=== PATIENT | female | born 1975 | race Caucasian/White ===

== ENCOUNTER 2024-05-08 09:20 | Outpatient (OUT) | payer OTHER, SELFPAY ==
[2024-05-08 10:15] LABS: Basophils Absolute Auto 0.1 10^3/uL (0.0-0.1); Basophils Percent Auto 0.6 % (0.2-2.0); Eosinophils Absolute Auto 0.3 10^3/uL (0.0-0.7); Eosinophils Percent Auto 2.6 % (0.9-7.0); Hematocrit 40.9 % (36.0-48.0); Hemoglobin 13.5 g/dL (12.0-16.0); Immature Granulocytes Abs Auto 0.04 10^3/uL (0.00-0.03); Immature Granulocytes Pct Auto 0.4 % (0.0-0.5); Lymphocytes Absolute Auto 2.2 10^3/uL (1.2-3.8); Lymphocytes Percent Auto 22.3 % (20.5-60.0); Mean Corpuscular Hemoglobin 28.5 pg (26.7-34.0); Mean Corpuscular Volume 86.3 fL (81.0-99.0); Mean Platelet Volume 10.9 fL (9.5-13.5); Monocytes Absolute Auto 0.5 10^3/uL (0.3-0.8); Monocytes Percent Auto 5.1 % (1.7-12.0); Neutrophils Absolute Auto 6.7 10^3/uL (1.4-6.5); Platelet Count 242 10^3/uL (150-450); Red Blood Count 4.74 10^6/uL (4.20-5.40); Red Cell Distribution Width 13.7 % (11.0-15.0); White Blood Count 9.7 10^3/uL (4.0-11.0)
[2024-05-08 11:24] LABS: Estimated Average Glucose 140 mg/dL; Glycohemoglobin A1C 6.5 % (4.5-6.2)
[2024-05-08 11:33] LABS: Alanine Aminotransferase 24 U/L (14-59); Albumin Globulin Ratio 0.9; Albumin Level 3.3 g/dL (3.4-5.0); Alkaline Phosphatase 69 U/L (46-116); Anion Gap 9.8; Aspartate Amino Transferase 13 U/L (15-37); BUN Creatinine Ratio 14.3; Bilirubin Total 0.4 mg/dL (0.2-1.0); Calcium 8.8 mg/dL (8.5-10.1); Carbon Dioxide 28.3 mmol/L (21.0-32.0); Chloride 104 mmol/L (98-107); Chol HDL Ratio 3.9; Cholesterol 172 mg/dL (<=200); Estimated GFR (African America >60 (>=60); Estimated GFR (Non-African Ame >60 (>=60); Free T3 2.22 pg/mL (2.18-3.98); Globulin 3.5 g/dL; Glucose 124 mg/dL (74-106); HDL Cholesterol 44 mg/dL (40-60); Potassium 3.1 mmol/L (3.5-5.1); Sodium 139 mmol/L (136-145); Thyroid Stimulating Hormone 1.252 uIU/mL (0.358-3.740); Total Protein 6.8 g/dL (6.4-8.2); Triglycerides 125 mg/dL (<=150)
[2024-05-09 08:13] LABS: Insulin 17.5 uIU/mL (2.6-24.9)
== END 2024-05-08 09:21 | disposition home or self-care (01) ==
LOC: LAB 09:24
PROVIDERS: PCP Nurse Practitioner Family; Visit Provider Nurse Practitioner Family
DX: Z00.00 Encounter for general adult medical examination without abnormal findings (principal)
CPT/HCPCS: 36415; 80053; 80061; 82306; 83036; 83525; 83540; 84436; 84443; 84481; 85025

== ENCOUNTER 2024-08-25 14:01 | Emergency (ER) | payer OTHER, SELFPAY ==
[2024-08-25 14:05] VITALS: BP 153/84; PULSE 68; TEMP 36.7; O2SAT 97; BMI 42.0
--- OUTSIDE RECORDS SUMMARY | 2024-08-25 14:07 | XMS_ITS | CCD ---
Author Organization [facility] CliniSyri Care Team Providers Care Professional Athlete Name Role Phone JEB ., DR GARVEY Consulting Unavailable JEB ., DR GARVEY Attending Unavailable CARRIE, LISA Primary Care Unavailable JEB ., DR GARVEY Admitting Unavailable JEB ., DR GARVEY Consulting Unavailable JEB ., DR GARVEY Attending Unavailable CARRIE, LISA Primary Care Unavailable JEB ., DR GARVEY Admitting Unavailable JEB ., DR GARVEY Consulting Unavailable JEB ., DR GARVEY Attending Unavailable CARRIE, LISA Primary Care Unavailable JEB ., DR GARVEY Admitting Unavailable AGUBOSIM, TUNDE Consulting Unavailable LONG, CLAUDIA Consulting Unavailable CARRIE, LISA Attending Unavailable CARRIE, LISA Admitting Unavailable CARRIE, LISA Primary Care Unavailable JEB ., DR GARVEY Admitting Unavailable JEB ., DR GARVEY Consulting Unavailable CARRIE, LISA Primary Care Unavailable JEB ., DR GARVEY Attending Unavailable JEB ., DR GARVEY Admitting Unavailable JEB ., DR GARVEY Consulting Unavailable CARRIE, LISA Primary Care Unavailable JEB ., DR GARVEY Attending Unavailable ZIEBER, DR LACI Manzano Consulting Unavailable CARRIE, LISA Admitting Unavailable CARRIE, LISA Primary Care Unavailable CARRIE, LISA Consulting Unavailable CARRIE, LIAS Attending Unavailable Problems Active Problems Problem Classification Problem Date Documented Da te Episodic/Chronic Diabetes mellitus with complications (1 source) Type 2 diabetes mellitus with hyperglycemia; Translations: [TYPE 2 DM W/HYPERGLYCEMIA] Onset: 05-04-2022 Chronic Diabetes mellitus without complication (1 source) Type 2 diabetes mellitus without complications; Translations: [TYPE 2 DM WITHOUT COMPLICATIONS] Onset: 04-22-2022 Chronic Essential hypertension (1 source) Essential (primary) hypertension; Translations: [ESSENTIAL PRIMARY HYPERTENSION] Onset: 05-04-2022 Chronic Menstrual disorders (6 sources) Excessive and frequent menstruation with regular cycle; Translations: [Dysmenorrhea, unspecified] Onset: 04-22-2022 Chronic Nutritional deficiencies (1 source) Vitamin D deficiency, unspecified; Translations: [VITAMIN D DEFICIENCY UNSPECIFIED] Onset: 05-04-2022 Chronic Other nutritional; endocrine; and metabolic disorders (1 source) Morbid (severe) obesity due to excess calories; Translations: [MORBID SEVERE OBES D/T EXCESS GAYATHRI] Onset: 05-04-2022 Chronic Other nutritional; endocrine; and metabolic disorders (1 source) Body mass index (BMI) 40.0-44.9, adult; Translations: [BODY MASS INDEX BMI 40.0-44.9 ADULT] Onset: 05-04-2022 Chronic Thyroid disorders (1 source) Hypothyroidism, unspecified; Translations: [HYPOTHYROIDISM UNSPECIFIED] Onset: 05-04-2022 Chronic Unclassified (1 source) CONTACT W/AND (SUSP) EXPOS COVID-19; Translations: [CONTACT W/AND (SUSP) EXPOS COVID-19] Onset: 05-03-2022 Past or Other Problems Problem Classification Problem Date Documented Date Episodic/Chronic Contraceptive and procreative management (1 source) Encounter for sterilization; Translations: [ENCOUNTER FOR STERILIZATION] Onset: 05-04-2022 Episodic Immunizations and screening for infectious disease (1 source) Encounter for screening for human papillomavirus (HPV); Translations: [ENC SCREENING HUMAN PAPILLOMAVIRUS] Onset: 02-18-2022 Episodic Other aftercare (1 source) Other [place] (current[facility] drug therapy; Translations: [OTH 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 CURRENT DRUG THERAPY] Onset: 04-22-2022 Episodic Other female genital disorders (1 source) Other specified noninflammatory disorders of vagina; Translations: [OTH SPEC NONINFLAMMATORY D/O VAGINA] Onset: 05-04-2022 Episodic Other screening for suspected conditions (not mental disorders or infectious disease) (4 sources) Encounter for screening for malignant neoplasm of cervix; Translations: [ENC SCREENING MALIG NEOPLASM CERV] Onset: 02-16-2022 Episodic Results Test Name Value Interpretation Reference Range Facility INSULINon 02-03-2023 Insulin 21.2 uIU/mL Normal 2.6-24.9 [facility] Comment on above: Performed By: #### I NSULIN ####[facility] [address] [place], [place] [address]EgDr. Elise Anderson CBC AUTO DIFFon 02-02-2023 BASO # 0.1 103/ul Normal 0.0-0.1 [facility] [place] Comment on above: Performed By: #### C BC #### [facility] [address] [address] [address] Elise Anderson Basophils/100 WBC (Bld) 0.6 % Normal 0.2-2.0 [facility] [place] Comment on above: Performed By: #### C BC #### [facility] [address] [address] [address] Elise Anderson EO # 0.3 103/ul Normal 0.0-0.7 [facility] [place] Comment on above: Performed By: #### C BC #### [facility] [address] [address] [address] Elise Anderson Eosinophils/100 WBC (Bld) 2.4 % Normal 0.9-7.0 [facility] Comment on above: Performed By: #### C BC #### [facility] [address] [address] [address] Elise Anderson Erythrocyte distribution width (RBC) [Ratio] 13.6 % Normal 11.0-15.0 [facility] Comment on above: Performed By: #### C BC #### [facility] [address] [address] [address] Elise Anderson Hematocrit (Bld) [Volume fraction] 39.6 % Normal 36.0-48.0 [facility] Comment on above: Performed By: #### C BC #### [facility] [address] [address] [address] Elise Anderson Hemoglobin (Bld) [Mass/Vol] 13.3 g/dL Normal 12.0-16.0 [facility] Comment on above: Performed By: #### C BC #### [facility] [address] [address] [address] Elise Anderson IG # 0.05 10e3/ul Critically high 0.00-0.03 [facility] Comment on above: Performed By: #### C BC #### [facility] [address] [place] [address] Dr. Elise Anderson IG % 0.5 % Normal 0.0-0.5 [facility] Comment on above: Performed By: #### C BC #### [facility] [address] [place] [address] Dr. Elise Anderson LYMPH # 2.1 103/ul Normal 1.2-3.8 [facility] Comment on above: Performed By: #### C BC #### [facility] [address] [place] [address] Dr. Elise Anderson Lymphocytes/100 WBC (Bld) 20.4 % Critically low 20.5-60.0 [facility] Comment on above: Performed By: #### C BC #### [facility] [address] [place] [address] Dr. Elise Anderson MANUAL DIFF REQ NO Normal [facility] Comment on above: Performed By: #### C BC #### [facility] [address] [place] [address] Dr. Elise Anderson MCH (RBC) [Entitic mass] 28.6 pg Normal 26.7-34.0 [facility] Comment on above: Performed By: #### C BC #### [facility] [address] [place] [address] Dr. Elise Anderson MCHC (RBC) [Mass/Vol] 33.6 g/dL Normal 29.9-35.2 [facility] Comment on above: Performed By: #### C BC #### [facility] [address] [place] [address] Dr. Elise Anderson MCV (RBC) [Entitic vol] 85.2 fL Normal 81.0-99.0 [facility] Comment on above: Performed By: #### C BC #### [facility] [address] [place] [address] Dr. Elise Anderson MONO # 0.6 103/ul Normal 0.3-0.8 [facility] Comment on above: Performed By: #### C BC #### [facility] [address] [address] [address] Elise Anderson Monocytes/100 WBC (Bld) 5.5 % Normal 1.7-12.0 [facility] Comment on above: Performed By: #### C BC #### [facility] [address] [place] [address] Dr. Elise Anderson NEUT # 7.3 103/ul Critically high 1.4-6.5 [facility] Comment on above: Performed By: #### C BC #### [facility] [address] [place] [address] Dr. Elise Anderson Neutrophils/100 WBC (Bld) 70.6 % Normal 43.0-75.0 [facility] Comment on above: Performed By: #### C BC #### [facility] [address] [place] [address] Dr. Elise Anderson Platelet mean volume (Bld) [Entitic vol] 10.3 fL Normal 9.5-13.5 [facility] Comment on above: Performed By: #### C BC #### [facility] [address] [place] [address] Dr. Elise Anderson PLT 274 103/ul Normal 150-450 [facility] Comment on above: Performed By: #### C BC #### [facility] [address] [place] [address] Dr. Elise Anderson RBC 4.65 106/ul Normal 4.20-5.40 [facility] Comment on above: Performed By: #### C BC #### [facility] [address] [place] [address] Dr. Elise Anderson WBC 10.3 103/ul Normal 4.0-11.0 [facility] Comment on above: Performed By: #### C BC #### [facility] [address] [place] [address] Dr. Elise Anderson FREE THYROXINE INDEX T7on FTI 3.23 Normal 1.30-4.50 [facility] Comment on above: Performed By: #### L IPID, T7, CMP, TSH ####[facility] [address] [id number] Anderson T3U 32.0 % Normal 30.0-39.0 [facility] Comment on above: Performed By: #### L IPID, T7, CMP, TSH ####[facility] [address] [place], [place] [address]BqClotilde Anderson T4 [Mass/Vol] 10.10 ug/dL Normal 4.80-13.90 [facility] Comment on above: Performed By: #### L IPID, T7, CMP, TSH ####[facility] [address] [place], [place] [address]ElClotilde Anderson GLYCOHEMOGLOBIN A1Con 2022 ADA RECOMMENDATION SEE BELOW Normal [facility] Comment on above: Result Comment: ADA RECOMMENDED LIMIT 4.0 - 6.0 ADA THERAPEUTIC TARGET < 7.0 ACTION SUGGESTED > 7.0 Performed By: #### A 1C #### [facility] [address] [address] [address] Elise Anderson Glucose [Mass/Vol] 197 mg/dL Normal [facility] Comment on above: Performed By: #### A 1C #### [facility] [address] [address] [address] Elise Anderson HbA1c (Bld) [Mass fraction] 8.5 % Critically high 4.5-6.2 [facility] [place] Comment on above: Performed By: #### A 1C #### [facility] [address] [address] [address] Elise Anderson IRONon 02-02-2023 Iron [Mass/Vol] 70.0 ug/dL Normal 50.0-170.0 [facility] Comment on above: Performed By: #### I IAN VITAD #### [facility] [address] [address] [address] Elise Anderson LIPID PROFILEon 02-02-2023 CHOL-HDL RATIO NORM SEE BELOW Normal [facility] Comment on above: Result Comment: 3.3 - 4.4 LOW RISK 4.4 - 7.1 AVERAGE RISK 7.1 - 11.0 MODERATE RISK >11.0 HIGH RISK Performed By: #### L IPID, T7, CMP, TSH ####[facility] [address] [id number]. Elise Anderson Cholesterol [Mass/Vol] 174 mg/dL Normal <=200 [facility] Comment on above: Performed By: #### L IPID, T7, CMP, TSH ####[facility] [address] [phone]. Elise Anderson Cholesterol in HDL [Mass/Vol] 35 mg/dL Critically low 40-60 [facility] Comment on above: Performed By: #### L IPID, T7, CMP, TSH ####[facility] [address] [phone]. Elise Anderson Cholesterol in LDL [Mass/Vol] 118.0 mg/dL Normal [facility] Comment on above: Performed By: #### L IPID, T7, CMP, TSH ####[facility] [address] [address]Dr. Elise Andesron Cholesterol.total/Cho lesterol in HDL [Mass ratio] 5.0 {ratio} Normal [facility] Comment on above: Performed By: #### L IPID, T7, CMP, TSH ####[facility] [address] [place] [phone]. Elise Anderson HDL NORMAL > or = 60 mg/dl - LO W CARDIOVASCULAR RISK <40 mg/dl - HIGH CARDIOVASCULAR RISK Normal [facility] Comment on above: Performed By: #### L IPID, T7, CMP, TSH ####[facility] [address] [phone]. Elise Anderson LDL CALC NORMAL SEE BELOW Normal [facility] Comment on above: Result Comment: <100 mg/dl OPTIMAL 100 - 129 mg/dl NEAR OR ABOVE OPTIMAL 130 - 159 mg/dl BORDERLINE HIGH 160 - 189 mg/dl HIGH >190 mg/dl VERY HIGH Performed By: #### L IPID, T7, CMP, TSH ####[facility] [address] [address]Dr. Elise Anderson Triglyceride [Mass/Vol] 105 mg/dL Normal <=150 [facility] Comment on above: Performed By: #### L IPID, T7, CMP, TSH ####[facility] [address] [address]Dr. Elise Anderson VLDL CALC 21.0 mg/dL Normal [facility] Comment on above: Performed By: #### L IPID, T7, CMP, TSH ####[facility] [address] [address]Dr. Elise Anderson PROF 14(COMP METB)on 023 Albumin [Mass/Vol] 3.5 g/dL Normal 3.4-5.0 [facility] Comment on above: Performed By: #### L IPID, T7, CMP, TSH ####[facility] [address] [address]Dr. Elise Anderson Albumin/Globulin [Mass ratio] 1.0 {ratio} Normal [facility] Comment on above: Performed By: #### L IPID, T7, CMP, TSH ####[facility] [address] [address]Dr. Elise Anderson ALP [Catalytic activity/Vol] 77 U/L Normal 46-116 [facility] Comment on above: Performed By: #### L IPID, T7, CMP, TSH ####[facility] [address] [address]Dr. Elise Anderson ALT [Catalytic activity/Vol] 20 U/L Normal 14-59 [facility] Comment on above: Performed By: #### L IPID, T7, CMP, TSH ####[facility] [address] [address]Dr. Elise Anderson Anion gap [Moles/Vol] 12.9 mmol/L Normal [facility] Comment on above: Performed By: #### L IPID, T7, CMP, TSH ####[facility] [address] [address]Dr. Elise Anderson AST [Catalytic activity/Vol] 12 U/L Critically low 15-37 [facility] Comment on above: Performed By: #### L IPID, T7, CMP, TSH ####[facility] [address] [address]Dr. Elise Anderson Bilirubin [Mass/Vol] 0.4 mg/dL Normal 0.2-1.0 [facility] Comment on above: Performed By: #### L IPID, T7, CMP, TSH ####[facility] [address] [address]Dr. Elise Anderson Calcium [Mass/Vol] 8.9 mg/dL Normal 8.5-10.1 [facility] Comment on above: Performed By: #### L IPID, T7, CMP, TSH ####[facility] [address] [place], [place] [address]Dr. Elise Anderson Chloride [Moles/Vol] 105 mmol/L Normal 98-107 [facility] Comment on above: Performed By: #### L IPID, T7, CMP, TSH ####[facility] [address] [place], [place] [address]Dr. Elise Anderson CO2 [Moles/Vol] 27.7 mmol/L Normal 21.0-32.0 [facility] Comment on above: Performed By: #### L IPID, T7, CMP, TSH ####[facility] [address] [place], [place] [address]Dr. Elise Anderson Creatinine [Mass/Vol] 0.74 mg/dL Normal 0.55-1.02 [facility] Comment on above: Performed By: #### L IPID, T7, CMP, TSH ####[facility] [address] [place], [place] [address]Dr. Elise Anderson EGFR-AF UGANDAN >60 Normal >=60 [facility] Comment on above: Performed By: #### L IPID, T7, CMP, TSH ####[facility] [address] [place], [place] [address]Dr. Elise Anderson EGFR-NON AF UGANDAN >60 Normal >=60 [facility] Comment on above: Performed By: #### L IPID, T7, CMP, TSH ####[facility] [address] [address]Dr. Elise Anderson Globulin (S) [Mass/Vol] 3.5 g/dL Normal [facility] Comment on above: Performed By: #### L IPID, T7, CMP, TSH ####[facility] [address] [address]Dr. Elise Anderson Glucose [Mass/Vol] 196 mg/dL Critically high 74-106 [facility] Comment on above: Performed By: #### L IPID, T7, CMP, TSH ####[facility] [address] [address]Dr. Elise Anderson Potassium [Moles/Vol] 3.6 mmol/L Normal 3.5-5.1 [facility] Comment on above: Performed By: #### L IPID, T7, CMP, TSH ####[facility] [address] [address]Dr. Elise Anderson Protein [Mass/Vol] 7.0 g/dL Normal 6.4-8.2 [facility] Comment on above: Performed By: #### L IPID, T7, CMP, TSH ####[facility] [address] [place], [place] [address]Dr. Elise Anderson Sodium [Moles/Vol] 142 mmol/L Normal 136-145 [facility] Comment on above: Performed By: #### L IPID, T7, CMP, TSH ####[facility] [address] [address]Dr. Elise Anderson Urea nitrogen [Mass/Vol] 12.0 mg/dL Normal 7.0-18.0 [facility] Comment on above: Performed By: #### L IPID, T7, CMP, TSH ####[facility] [address] [address]Dr. Elise Anderson Urea nitrogen/Creatinine [Mass ratio] 16.2 mg/mg Normal [facility] Comment on above: Performed By: #### L IPID, T7, CMP, TSH ####[facility] [address] [address]Dr. Elise Anderson TSHon 02-02-2023 TSH 1.113 uIU/mL Normal 0.358-3.740 [facility] Comment on above: Performed By: #### L IPID, T7, CMP, TSH ####[facility] [address] [phone] Anderson VITAMIN D 25 OHon 02-02-2023 VIT D 25-OH 49.1 ng/mL Normal [facility] Comment on above: Performed By: #### I IAN VITAD #### [facility] [address] [address] [address] Elise Anderson VIT D RANGES SEE BELOW Normal [facility] Comment on above: Result Comment: <20 ng/mL Vit D deficient 20 - <30 ng/mL Vit D insufficient 30 - 100 ng/mL Vit D sufficient >100 ng/mL Potential Toxicity Performed By: #### I IAN VITAD #### [facility] [address] [place] [address] Dr. Elise Anderson CBC AUTO DIFFon 04-29-2022 BASO # 0.1 103/ul Normal 0.0-0.1 [facility] Comment on above: Performed By: #### C BC ####[facility] [address] [address]DrClotilde Anderson Basophils/100 WBC (Bld) 0.5 % Normal 0.2-2.0 [facility] Comment on above: Performed By: #### C BC ####[facility] [address] [place] [address]DrClotilde Anderson EO # 0.2 103/ul Normal 0.0-0.7 [facility] Comment on above: Performed By: #### C BC ####[facility] [address] [place] [phone] Anderson Eosinophils/100 WBC (Bld) 2.0 % Normal 0.9-7.0 [facility] Comment on above: Performed By: #### C BC ####[facility] [address] [place] [address]DrClotilde Anderson Erythrocyte distribution width (RBC) [Ratio] 12.9 % Normal 11.0-15.0 [facility] Comment on above: Performed By: #### C BC ####[facility] [address] [address]Dr. Elise Anderson Hematocrit (Bld) [Volume fraction] 41.3 % Normal 36.0-48.0 [facility] Comment on above: Performed By: #### C BC ####[facility] [address] [place] [address]Dr. Elise Anderson Hemoglobin (Bld) [Mass/Vol] 13.7 g/dL Normal 12.0-16.0 [facility] Comment on above: Performed By: #### C BC ####[facility] [address] [place], [place] [address]Dr. Elise Anderson IG # 0.03 10e3/ul Normal 0.00-0.03 [facility] Comment on above: Performed By: #### C BC ####[facility] [address] [place], [place] [address]Dr. Erinwalker Anderson IG % 0.3 % Normal 0.0-0.5 [facility] Comment on above: Performed By: #### C BC ####[facility] [address] [place], [place] [address]Dr. Elise Justin LYMPH # 2.0 103/ul Normal 1.2-3.8 [facility] Comment on above: Performed By: #### C BC ####[facility] [address] [place], [place] [address]Dr. Erinwalker Anderson Lymphocytes/100 WBC (Bld) 20.1 % Critically low 20.5-60.0 [facility] Comment on above: Performed By: #### C BC ####[facility] [address] [place], [place] [address]Dr. Erinwalker Anderson MANUAL DIFF REQ NO Normal [facility] Comment on above: Performed By: #### C BC ####[facility] [address] [place] [address]DrClotilde Erinwalker Anderson MCH (RBC) [Entitic mass] 28.1 pg Normal 26.7-34.0 [facility] Comment on above: Performed By: #### C BC ####[facility] [address] [place] [phone]. Elise Anderson MCHC (RBC) [Mass/Vol] 33.2 g/dL Normal 29.9-35.2 [facility] Comment on above: Performed By: #### C BC ####[facility] [address] [place] [phone]. Elise Anderson MCV (RBC) [Entitic vol] 84.8 fL Normal 81.0-99.0 [facility] Comment on above: Performed By: #### C BC ####[facility] [address] [place], [place] [address]Dr. Elise Anderson MONO # 0.5 103/ul Normal 0.3-0.8 [facility] Comment on above: Performed By: #### C BC ####[facility] [address] [place], [place] [address]Dr. Elise Anderson Monocytes/100 WBC (Bld) 4.8 % Normal 1.7-12.0 [facility] Comment on above: Performed By: #### C BC ####[facility] [address] [place], [place] [address]Dr. Elise Anderson NEUT # 7.1 103/ul Critically high 1.4-6.5 [facility] Comment on above: Performed By: #### C BC ####[facility] [address] [place], [place] [address]Dr. Elise Anderson Neutrophils/100 WBC (Bld) 72.3 % Normal 43.0-75.0 [facility] Comment on above: Performed By: #### C BC ####[facility] [address] [place], [place] [address]Dr. Elise Anderson Platelet mean volume (Bld) [Entitic vol] 10.3 fL Normal 9.5-13.5 [facility] Comment on above: Performed By: #### C BC ####[facility] [address] [place], [place] [address]Dr. Elise Anderson PLT 304 103/ul Normal 150-450 [facility] Comment on above: Performed By: #### C BC ####[facility] [address] [place], [place] [address]Ts. Elise Anderson RBC 4.87 106/ul Normal 4.20-5.40 [facility] Comment on above: Performed By: #### C BC ####[facility] [address] [place], [place] [address]KxClotilde Anderson WBC 9.8 103/ul Normal 4.0-11.0 [facility] Comment on above: Performed By: #### C BC ####[facility] [address] [place], [place] [address]ApClotilde Anderson POINT OF CARE GLUCOSEon Glucose [Mass/Vol] 172 mg/dL Critically high 74-106 [facility] Comment on above: Performed By: #### P OCGLUC #### [facility] [address] [address] [address] Elise Anderson PREG QUANT HCGon 04-29-2022 HCG QUANT <1 Normal [facility] Comment on above: Performed By: #### P REGQNT #### [facility] [address] [address] [address] Elise Anderson HCG RANGE SEE BELOW Normal [facility] Comment on above: Result Comment: 5-50 0-1 WEEK 40-300 1-2 WEEKS 100-1,000 2-3 WEEKS 500-6,000 3-4 WEEKS 5,000-200,000 1-2 MONTHS 10,000-100,000 2-3 MONTHS 3,000-50,000 2ND TRIMESTER 1,000-50,000 3RD TRIMESTER Performed By: #### P REGQNT #### [facility] [address] [place] [address] Dr. Elise Anderson Covid-19 PCR ([facility])on 03-29 SARS-CoV-2 (COVID-19) RNA CHICA+probe Ql (Unsp spec) Not detected Normal NOT DETECTED [facility] Comment on above: Result Comment: This test is not yet approved or cleared by the [place] FDA. When there are no FDA-approved or cleared tests available, and other criteria are met, FDA can make tests available under an emergency access mechanism called an Emergency Use Authorization (EUA). The EUA for this test is supported by the [place] of Health and Human Service's (HHS's) declaration that circumstances exist to justify the emergency use of in vitro diagnostics for the detection and/or diagnosis of the virus that causes COVID-19. This EUA will remain in effect (meaning this test can be used) for the duration of the COVID-19 declaration justifying emergency of IVDs, unless it is terminated or revoked by FDA (after which the test may no longer be used). When diagnostic testing is negative, the possibility of a false negative should be considered in the context of a patient's recent exposures and the presence of clinical signs and symptoms consistent with SARS-CoV-2. Performed By: #### [facility] #### [facility] [address] [place] [address] Dr. Elise Anderson PROF CHEM 8 (BAS METB)on Anion gap [Moles/Vol] 11.5 mmol/L Normal [facility] Comment on above: Performed By: #### B MP #### [facility] [address] [place] [address] Dr. Elise Anderson Calcium [Mass/Vol] 9.1 mg/dL Normal 8.5-10.1 [facility] Comment on above: Performed By: #### B MP #### [facility] [address] [place] [address] Dr. Elise Anderson Chloride [Moles/Vol] 99 mmol/L Normal 98-107 [facility] Comment on above: Performed By: #### B MP #### [facility] [address] [place] [address] Dr. Elise Anderson CO2 [Moles/Vol] 29.1 mmol/L Normal 21.0-32.0 [facility] Comment on above: Performed By: #### B MP #### [facility] [address] [place] [address] Dr. Elise Anderson Creatinine [Mass/Vol] 0.93 mg/dL Normal 0.55-1.02 [facility] Comment on above: Performed By: #### B MP #### [facility] [address] [address] [address] Elise Anderson EGFR-AF UGANDAN >60 Normal >=60 [facility] Comment on above: Performed By: #### B MP #### [facility] [address] [address] [address] Elise Anderson EGFR-NON AF UGANDAN >60 Normal >=60 [facility] Comment on above: Performed By: #### B MP #### [facility] [address] [address] [address] Elise Anderson Glucose [Mass/Vol] 385 mg/dL Critically high 74-106 [facility] Comment on above: Performed By: #### B MP #### [facility] [address] [address] [address] Elise Anderson Potassium [Moles/Vol] 3.6 mmol/L Normal 3.5-5.1 [facility] Comment on above: Performed By: #### B MP #### [facility] [address] [address] [address] Elise Anderson Sodium [Moles/Vol] 136 mmol/L Normal 136-145 [facility] Comment on above: Performed By: #### B MP #### [facility] [address] [address] [address] Elise Anderson Urea nitrogen [Mass/Vol] 15.0 mg/dL Normal 7.0-18.0 [facility] Comment on above: Performed By: #### B MP #### [facility] [address] [address] [address] Elise Anderson Urea nitrogen/Creatinine [Mass ratio] 16.1 mg/mg Normal [facility] Comment on above: Performed By: #### B MP #### [facility] [address] [address] [address] Elise Anderson PAP ACOG PANEL 2: 30 to 65on 02-23-2022 . . Normal [facility] Comment on above: Result Comment: Perf ormed at: WB Performed By: #### [id number] ####[facility] [address] [place], [place] [address]Dr. Elise Anderson Age Gdln ACOG Testing 30-65 Normal [facility] Comment on above: Performed By: #### [id number] ####[facility] [address] [place], [place] [address]Dr. Elise Anderson DIAGNOSIS: Comment Normal [facility] Comment on above: Result Comment: NEGA TIVE FOR INTRAEPITHELIAL LESION OR MALIGNANCY. Performed at: WB Performed By: #### [id number] ####[facility] [address] [place], [place] [address]Dr. Elise Anderson HPV Aptima Negative Normal Negative [facility] Comment on above: Result Comment: This nucleic acid amplification test detects fourteen high-risk HPV types (16,18,31,33,35,39,45,51,52,56,58,59,66,68) without differentiation. Performed at: =G Performed By: #### [id number] ####[place] [address]DrClotilde Anderson Methodology: Comment Normal [facility] Comment on above: Result Comment: This liquid based ThinPrep(R) pap test was screened with the use of an image guided system. Performed at: WB Performed By: #### [id number] ####[place] [address]Dr. Elise Anderson Note: Comment Normal [facility] Comment on above: Result Comment: The Pap smear is a screening test designed to aid in the detection of premalignant and malignant conditions of the uterine cervix. It is not a diagnostic procedure and should not be used as the sole means of detecting cervical cancer. Both false-positive and false-negative reports do occur. . Performed at: WB Performed By: #### [id number] ####[facility] [address] [place], [place] [address]DrClotilde Anderson Performed by: Comment Normal [facility] Comment on above: Result Comment: Anahi Romo, Hazardous Materials Handler (ASCP) Performed at: WB Performed By: #### [id number] ####[facility] [address] [place], [place] [address]Dr. Elise Anderson Specimen adequacy: Comment Normal [facility] Comment on above: Result Comment: Sati sfactory for evaluation. Endocervical and/or squamous metaplastic cells (endocervical component) are present. Areas of partially obscuring blood are present. Performed at: WB Performed By: #### [id number] ####[facility] [address] [place], [place] [address]Mf. Elise Anderson US PELVIS AND TRANSVAGon US PELVIS AND TRANSVAG EXAMINATION: US PELVIS AND TRANSVAG HISTORY: Excessive and frequent menstruation COMPARISON: Ultrasound pelvis 10/18/2019 TECHNIQUE: Transabdominal and transvaginal sonographic examination. FINDINGS: UTERUS: Slightly heterogeneous echotexture. Normal size and contour. Uterus size: 9.9 x 5.6 x 4.7 cm ENDOMETRIUM: Normal homogeneous appearance. Endometrial thickness: 10 mm RIGHT OVARY: Normal size and appearance. Duplex Doppler demonstrates normal waveform and flow; resistive index 0.5. Ovary size: 2.2 x 2.3 x 2.2 cm LEFT OVARY: Contains a 1.9 cm benign-appearing cyst. Duplex Doppler demonstrates normal waveform and flow; resistive index 0.4. Ovary size: 3.8 x 2.7 x 2.5 cm CUL-DE-SAC: Unremarkable. No significant free fluid. BLADDER: Unremarkable. OTHER: None. IMPRESSION: 1. No specific findings to account for patient's symptoms. Electronically authenticated by: LACI FRITZ Date: 2022-02-23 15:28 Normal [facility] Encounters Encounter Date Encounter Type Care Provider Facility Start: 02-07-2023 Encounter for genera l adult medical examination without abnormal findings LISA BUTLER [facility] Start: 02-02-2023 End: 02-03-2023 ambulatory LISA BUTLER Facility:[facility] Start: 02-02-2023 End: 02-03-2023 Encounter for general adult medical examination without abnormal findings LISA BUTLER Facility:[facility] Start: 12-21-2022 ambulatory LISA BUTLER Facility: [facility] Start: 05-03-2022 Encounter for prepro cedural laboratory examination DR MARE LEAVITT . [facility] Start: 04-29-2022 End: 04-29-[address] MARE LEAVITT . Facility:[facility] Start: 04-26-2022 End: 04-27-[address] MARE LEAVITT . Facility:[facility] Start: 04-26-2022 End: 04-27-2022 Encounter for preprocedural laboratory examination DR MARE LEAVITT . Facility:[facility] Start: 04-22-2022 Encounter for prepro cedural cardiovascular examination DR MARE LEAVITT . [facility] Start: 04-22-2022 Encounter for prepro cedural laboratory examination DR MARE LEAVITT . [facility] Start: 04-20-2022 End: 04-21-[address] MARE LEAVITT . Facility:[facility] Start: 04-20-2022 End: 04-21-2022 Encounter for preprocedural cardiovascular examination DR MARE LEAVITT . Facility:[facility] Start: 02-23-2022 End: 02-24-[address] MARE LEAVITT . Facility:[facility] Start: 02-16-2022 End: 02-16-[address] MARE LEAVITT . Facility:[facility] Payers Date Payer Category Payer Unknown [id number] 2.16.84 [id number] 1975 Unknown [id number] 2.16.84 [id number] 1975 Unknown [id number] 2.16.84 [id number] 1977 Unknown [id number] 2.16.84 [id number] 1977 Unknown [id number] 2.16.84 [id number] 1977 Unknown [id number] 2.16.84 [id number] 1977 Unknown [id number] 2.16.84 [id number] 1957 Self-pay [id number] 1957 Unknown [id number] Clinical Note 04-29-2022 Note Date & Type Note Facility 04-29-2022 Note OPERATIVE NOTE YANELY MAGALLANES OPERATION DATE: 05/06/2022 PROCEDURE NAME: BILATERAL LAPAROSCOPIC SALPINGECTOMY PROCEDURE: The patient was taken back to the Operating Room where she was given general anesthesia without difficulty. She was then prepped and draped in the normal sterile fashion after being placed in a dorsal lithotomy position. A wet sponge stick was placed into the patient's vagina. Attention was then turned to the patient's abdomen, where a scalpel was used to make a small infraumbilical incision. The S retractors were then used to dissect the underlying layers until the fascia could be seen. The fascia was then grasped with Rakan clamps and tented up. A knife was then used to make a small incision to the fascia. The muscle was identified, at that time two sutures of #0 Vicryl on a GI needle was then used and placed through the fascia. The peritoneum was then identified and entered bluntly. The 10-4 Arabella was then placed into the patient's abdomen. This was confirmed with direct visualization of the bowel, using the laparoscope. The patient's abdomen was then insufflated using approximately 4 liters of CO2 gas. Survey of the patient's abdomen demonstrated ovaries were normal in appearance as well as both tubes and uterus. A second and third rt and lt lateral ports which were 7-8 and 5mm in size, was then placed after the skin incision was made under direct visualization The patient's tube on the patient's right side was identified and tented up using a grasper, the ligasure apparatus was then used to come across the mesosalpingx from the fimbriated end to the insertion site at the uterus, the tube was then amputated and removed in its entirety. This was done on the contralateral side. The tubes were the removed from the patients abdomen. Excellent hemostasis was noted. The lateral ports were then moved under direct visualization with excellent hemostasis. All instruments were removed from the patient's abdomen. The fascia was closed using the #0 Vicryl on GI needle. The skin was closed using 4-0 Vicryl subcuticularly. All instruments were removed from the patient's vagina as well. The patient was taken out of the dorsal lithotomy position and placed in the supine position and taken to recovery in stable condition. Sponge, lap and needle counts were correct x2. [facility] Clinical Note 04-29-2022 Note Date & Type Note Facility 04-29-2022 Note OP Note OPERATION DATE: 04/29/2022 PROCEDURE: Bilateral laparoscopic salpingectomy with Nena endometrial ablation. PREOPERATIVE DIAGNOSIS: Menorrhagia, desires permanent sterilization. POSTOPERATIVE DIAGNOSIS: Menorrhagia, desires permanent sterilization. ANESTHESIA: General. SURGEON: Mare Leavitt D.O. PUPIL PERSONNEL WORKER: BRIJESH Zavala URINE OUTPUT: Yellow and clear. BLOOD LOSS: 5 mL. SPECIMEN: Bilateral tubes. FINDINGS: Both ostia seen. No gross evidence of polyps, fibroids or malignancy. Normal appearing endometrium. ABDOMINAL FINDINGS: Normal appearing ovaries, uterus and tubes. PROCEDURE: The patient was taken back to the Operating Room where she was given general anesthesia without difficulty. She was then prepped and draped in the normal sterile fashion after being placed in a dorsal lithotomy position. A wet sponge stick was placed into the patient's vagina. Attention was then turned to the patient's abdomen, where a scalpel was used to make a small infraumbilical incision. The S retractors were then used to dissect the underlying layers until the fascia could be seen. The fascia was then grasped with Rakan clamps and tented up. A knife was then used to make a small incision to the fascia. The muscle was identified, at that time two sutures of #0 Vicryl on a GI needle was then used and placed through the fascia. The peritoneum was then identified and entered bluntly. The 10-4 Arabella was then placed into the patient's abdomen. This was confirmed with direct visualization of the bowel, using the laparoscope. The patient's abdomen was then insufflated using approximately 4 liters of CO2 gas. Survey of the patient's abdomen demonstrated ovaries were normal in appearance as well as both tubes and uterus. A second and third rt and lt lateral ports which were 7-8 and 5 mm in size, was then placed after the skin incision was made under direct visualization The patient's tube on the patient's right side was identified and tented up using a grasper, the LigaSure apparatus was then used to come across the mesosalpinx from the fimbriated end to the insertion site at the uterus, the tube was then amputated and removed in its entirety. This was done on the contralateral side. The tubes were the removed from the patients abdomen. Excellent hemostasis was noted. The lateral ports were then moved under direct visualization with excellent hemostasis. All instruments were removed from the patient's abdomen. The fascia was closed using the #0 Vicryl on GI needle. The skin was closed using 4-0 Vicryl subcuticularly. All instruments were removed from the patient's vagina as well. The patient was taken out of the dorsal lithotomy position and placed in the supine position and taken to recovery in stable condition. Sponge, lap and needle counts were correct x2. The patient was taken back to the OR where she was prepped and draped in the normal sterile fashion after being placed in the dorsal lithotomy position, after being placed under general anesthesia without difficulty. A weighted speculum was placed into the vagina. The anterior lip was grasped with a single tooth tenaculum. The patient was then sounded to approximately 9 cm. The patient's cervix was gently dilated using Hegar dilators. The hysteroscope was passed through the cervix into the uterus where both ostia were seen. No gross evidence of polyps, fibroids or malignancy. The cervical length was noted to be 5 cm. The total cavity length is 4 cm. The Nena ablation apparatus was set to approximately 4 cm in length. This was placed through the cervix and into the uterus. After the seal was tested, at that time the total ablation of 120 seconds was performed with the Nena without difficulty. All instruments were removed from the vagina. Excellent hemostasis noted. Sponge and lap count correct times 2. Patient taken to recovery in stable condition. [facility] Clinical Note 04-29-2022 Note Date & Type Note Facility 04-29-2022 Note [facility] [place], [place] NAME: WILILE GUZMAN DATE OF : MEDICAL REC#: [id number] SKIRT CLIPPER: [id number] MONICO GAITAN DATE: 04/29/2022 07:04:00 USABILITY ENGINEER DATE: 05/19/2022 11:37 DICTATING PHYSICIAN: MARE LEAVITT DICTATION DATE: 05/19/2022 11:37 OPERATIVE NOTE OPERATION DATE: 04/29/2022 ANESTHETIC: PREOPERATIVE DIAGNOSIS: menorrhagia, desires permanent sterilization POSTOPERATIVE DIAGNOSIS : same as above ANESTHESIA: general Surgeon: jeb Young Food Adviser: BRIJESH Blood loss:10ml Specimen: bilateral tubes Finding:Normal appearing ovaries uterus and tubes, Both ostia seen, no gross evidence of polyps fibroids or malignancy PROCEDURE NAME: NENA ABLATION WITH BILATERAL LAPAROSCOPIC SALPINGECTOMY PROCEDURE: The patient was taken back to the OR where she was prepped and draped in the normal sterile fashion after being placed in the dorsal lithotomy position, after being placed under general anesthesia without difficulty. The anterior lip was grasped with a single tooth tenaculum. The patient was then gently sounds. The patient was gently sounded using Hegar dilators and the hysteroscope was passed through the cervix into the uterus where both ostia were seen. No gross evidence of polyps, fibroids or malignancy. A weighted speculum was placed in the patient's vagina, the anterior tip of the cervix was identified and grasped with a single tooth tenaculum. The patient was gently sounded to roughly 10 cm. The cervical length was noted to be 5 cm. The Nena ablation apparatus was set to approximately 5 in length. This was placed in through the cervix and into the uterus. After the seal was tested, at that time the total ablation of 120 seconds was performed with the Nena without difficulty. All instruments were removed from the vagina. A wet sponge stick was placed into the patient's vagina. Attention was then turned to the patient's abdomen, where a scalpel was used to make a small infraumbilical incision. The S retractors were then used to dissect the underlying layers until the fascia could be seen. The fascia was then grasped with Rakan clamps and tented up. A knife was then used to make a small incision to the fascia. The muscle was identified, at that time two sutures of #0 Vicryl on a GI needle was then used and placed through the fascia. The peritoneum was then identified and entered bluntly. The 10-4 Arabella was then placed into the patient's abdomen. This was confirmed with direct visualization of the bowel, using the laparoscope. The patient's abdomen was then insufflated using approximately 4 liters of CO2 gas. Survey of the patient's abdomen demonstrated ovaries were normal in appearance as well as both tubes and uterus. A second and third rt and lt lateral ports which were 7-8 and 5mm in size, was then placed after the skin incision was made under direct visualization The patient's tube on the patient's right side was identified and tented up using a grasper, the ligasure apparatus was then used to come across the mesosalpingx from the fimbriated end to the insertion site at the uterus, the tube was then amputated and removed in its entirety. This was done on the contralateral side. The tubes were the removed from the patients abdomen. Excellent hemostasis was noted. The lateral ports were then moved under direct visualization with excellent hemostasis. All instruments were removed from the patient's abdomen. The fascia was closed using the #0 Vicryl on GI needle. The skin was closed using 4-0 Vicryl subcuticularly. All instruments were removed from the patient's vagina as well. The patient was taken out of the dorsal lithotomy position and placed in the supine position and taken to recovery in stable condition. Sponge, lap and needle counts were correct x2. Electronically Authenticated and Edited by: Mare Leavitt DO on 05/19/2022 11:48 AM EDT IFC Signed and Approved by: DR MARE LEAVITT . 05/19/2022 11:48:00 [facility] Summary Purpose Family History No Family History Records Found Advance Directives No Advanced Directives Records Found Additional Source Comments INFORMATION SOURCE (unrecogn ized section and content) DATE CREATED AUTHOR 02/08/2023 [facility] FOR RECORDS PERTAINING TO PATIENTS WHO ARE OR HAVE BEEN ENROLLED IN A CHEMICAL DEPENDENCY/SUBSTANCEABUSE PROGRAM, SOME INFORMATION MAY BE OMITTED. This clinical summary was aggregated from multiple sources. Caution should be exercised in using it in the provision of clinical care. This summary normalizes information from multiple sources, and as a consequence, information in this document may materially change the coding, format and clinical context of patient data. In addition, data may be omitted in some cases. CLINICAL DECISIONS SHOULD BE BASED ON THE PRIMARY CLINICAL RECORDS. [employer] provides no warranty or guarantee of the accuracy or completeness of information in this document.
--- NOTE | 2024-08-25 14:14 | XR_ITS ---
The [address] [address] Patient Name: WILLIE GUZMAN MRN: [id number] date: 1975 Sex: F Assigned Patient Location: ER Current Patient Location: Accession/Order Number: [id number] Exam Date: 08/25/2024 14:32 Report Date: 08/25/2024 15:37 At the request of: TARIQ VARNER Procedure: XR foot RT min 3V EXAM: XR foot RT min 3V HISTORY: Pain and swelling. COMPARISON: None FINDINGS: There is no evidence of an acute fracture, subluxation or bony destruction. XR/XR foot RT min 3V IMPRESSION: No acute osseous abnormality detected. Electronically authenticated by: MARTHA SALES Date: 08/25/2024 15:37
--- NOTE | 2024-08-25 14:14 | XR_ITS ---
The [address] [address] Patient Name: WILLIE GUZMAN MRN: [id number] date: 1975 Sex: F Assigned Patient Location: ER Current Patient Location: Accession/Order Number: [id number] Exam Date: 08/25/2024 14:32 Report Date: 08/25/2024 15:38 At the request of: TARIQ VARNER Procedure: XR ankle RT min 3V HISTORY: c/o pain COMPARISON: There are no previous studies available for comparison. TECHNIQUE: 3 views of the right ankle. FINDINGS: BONE DENSITY: Normal. JOINTS: No acute abnormality. FRACTURE: No acute fracture. DISLOCATION: None. SOFT TISSUES: No radiopaque foreign body. XR/XR ankle RT min 3V IMPRESSION: No acute osseous or joint abnormality. Electronically authenticated by: EDDIE CRENSHAW Date: 08/25/2024 15:38
--- NOTE | 2024-08-25 14:30 | PC.NURSE ---
Pain to right outer foot and ankle. Denies injury to area, slight swelling to area, no redness or bruising to area.
--- NOTE | 2024-08-25 14:57 | ED.LOWEXI1 ---
HPI HPI - Extremity Injury (Lower) General Chief Complaint: Extremity Injury, Lower Stated Complaint: RT FOOT PAIN Time Seen by Provider: 08/25/24 14:25 Source: patient Mode of arrival: walk-in Limitations: no limitations History of Present Illness HPI Narrative: 49-year-old female presents for right foot pain. She has had this for a few weeks and she points to the arch of her foot. 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 The contralateral foot does not hurt. She has never had issues with this foot previously. It hurts more when she walks on it. Related Data Home Medications ?Medication ?Instructions ?Recorded ?Confirmed amlodipine 5 mg tablet 5 mg PO DAILY 08/25/24 08/25/24 empagliflozin 10 mg tablet 10 mg PO DAILY 08/25/24 08/25/24 (Jardiance) glipizide 5 mg tablet, extended 5 mg PO DAILY 08/25/24 08/25/24 release 24 hr hydrochlorothiazide 25 mg tablet 25 mg PO DAILY 08/25/24 08/25/24 levothyroxine 75 mcg tablet 75 mcg PO DAILY 08/25/24 08/25/24 Previous Rx's ?Medication ?Instructions ?Recorded etodolac 400 mg tablet 400 mg PO Q8H PRN pain #20 tabs 08/25/24 Allergies Allergy/AdvReac Type Severity Reaction Status Date / Time No Known Drug Allergies Allergy Verified 08/25/24 14:05 Opioid HPI Opioid Management Most Recent Pain and Opioid Data: No Data to Display Review of Systems ROS Narrative A ten point review of systems is negative except as noted above. PFSH PFSH Social History Little interest or pleasure in doing things: not at all Feeling down, depressed, or hopeless: not at all Exam Narrative Exam Narrative: Nurses note and vital signs reviewed and patient is not hypoxic. General: The patient appears well and in no apparent distress. Patient is resting comfortably on cart. Skin: Warm, dry, no pallor noted. There is no rash noted. Head: Normocephalic, atraumatic Eye: Normal conjunctiva, no drainage Ears, Nose, Mouth, and Throat: oral mucosa is moist. Nares patent. Cardiovascular: Regular Rate and Rhythm Respiratory: Patient is in no distress, no accessory muscle use, lungs are clear to auscultation, no wheezing, rales or rhonchi GI: Nontender Musculoskeletal: The right foot and ankle are examined. There is no bruise or rash or focal area of tenderness to palpation. She has diffuse tenderness along the arch of the foot. Skin intact. No rash. Neurological: Awake and alert Psychiatric: Cooperative Constitutional Vital Signs, click to edit/add: Last Vital Signs Temp 98.1 F 08/25/24 14:05 Pulse 68 08/25/24 14:05 Resp 20 08/25/24 14:05 BP 153/84 H 08/25/24 14:05 Pulse Ox 97 08/25/24 14:05 O2 Del Method Room Air 08/25/24 14:05 Course Vital Signs Vital signs: Vital Signs Temperature 98.1 F 08/25/24 14:05 Pulse Rate 68 08/25/24 14:05 Respiratory Rate 08/25/24 14:05 Blood Pressure 153/84 H 08/25/24 14:05 Pulse Oximetry 97 08/25/24 14:05 Oxygen Delivery Method Room Air 08/25/24 14:05 Temperature 98.1 F 08/25/24 14:05 Pulse Rate 08/25/24 14:05 Respiratory Rate 08/25/24 14:05 Blood Pressure 153/84 H 08/25/24 14:05 Pulse Oximetry 97 08/25/24 14:05 Oxygen Delivery Method Room Air 08/25/24 14:05 MDM - Extremity Injury (Lower) MDM Narrative Medical decision making narrative: X-rays of foot and ankle on my interpretation showed no acute findings. Sathya wrap applied and application checked by me and found to be appropriate, she is neurovascularly intact. She is referred to podiatry and is placed on crutches. Treatment diagnosis and follow-up were discussed with the patient. Differential Diagnosis Differential diagnosis: Likely other (Foot sprain, foot fracture) Imaging Data X-rays of foot and ankle: My impression: No acute findings Discharge Plan Discharge Chief Complaint: Extremity Injury, Lower Clinical Impression: Foot pain, right Patient Disposition: Home, Self-Care Time of Disposition Decision: 14:56 Condition: Good Mode of Transportation: Private Vehicle Prescriptions / Home Meds: New etodolac 400 mg tablet 400 mg PO Q8H PRN (Reason: pain) Qty: 20 0RF No Action amlodipine 5 mg tablet 5 mg PO DAILY Jardiance 10 mg tablet 10 mg PO DAILY glipizide 5 mg tablet extended release 24hr 5 mg PO DAILY hydrochlorothiazide 25 mg tablet 25 mg PO DAILY levothyroxine 75 mcg tablet 75 mcg PO DAILY Print Language: Yemeni Instructions: Foot Sprain (ED) Referrals: LISA BUTLER [Primary Care Provider] - 1 week Trevor Minor DPM [Physician] - 1 week
== END 2024-08-25 15:23 | disposition home or self-care (01) ==
PROVIDERS: Emergency Provider Emergency Medicine; PCP Nurse Practitioner Family
DX: M79.671 Pain in right foot (principal)
CPT/HCPCS: 73610; 73630; 99283

== ENCOUNTER 2024-09-03 13:20 | Outpatient (OUT) | payer OTHER, SELFPAY ==
--- NOTE | 2024-09-03 13:26 | MR_ITS ---
[address] [address] Patient Name: WILLIE GUZMAN MRN: [id number] date: 1975 Sex: F Assigned Patient Location: MRI Current Patient Location: MRI Accession/Order Number: [id number] Exam Date: 09/03/2024 13:38 Report Date: 09/04/2024 17:11 At the request of: LAKISHA BARROSO Procedure: MR ankle RT wo con EXAM: MR ankle RT wo con HISTORY: Plantar Fascia Rupture S96.811 COMPARISON: 08/25/2024 TECHNIQUE: MRI images obtained with multiple sequences. MRI of the right ankle without contrast. Sequences obtained by standard department protocol. FINDINGS: Mild degeneration of the ankle joint. No ankle joint effusion. Achilles tendon is intact. Plantar fascia is intact. Extensor, flexor and peroneal tendons are intact. Moderate degeneration at the second tarsometatarsal joint. Mild degeneration at the other tarsometatarsal joints. Anterior talofibular, posterior talofibular and calcaneofibular ligaments are intact. Deltoid ligament fibers are intact. No acute fractures. MR/MR ankle RT wo con IMPRESSION: 1. No acute tendinous or ligamentous abnormality. 2. Plantar fascial is intact where visualized. 3. Mild degeneration at the ankle joint. 4. No acute fractures. Electronically authenticated by: RENY MARTINEZ Date: 09/04/2024 17:11
--- OUTSIDE RECORDS SUMMARY | 2024-09-03 13:30 | XMS_ITS | CCD ---
Author Organization [facility] CliniSydc Care Team Providers Care Digital Media Director Name Role Phone JEB ., DR GARVEY [...] Care Unavailable CARRIE, LISA Consulting Unavailable CARRIE, LISA Attending Unavailable Problems Active Problems Problem Classification [...] 02-18-2022 Episodic Other aftercare (1 source) Other intermediate (current) drug therapy; Translations: [OTH FDC CURRENT DRUG THERAPY] Onset: 04-22-2022 Episodic Other [...] 02-03-2023 Insulin 21.2 uIU/mL Normal 2.6-24.9 [facility] Comment on above: Performed By: #### I NSULIN ####[facility] [address] [place], [place] [address]YsDr. Elise Anderson CBC AUTO DIFFon 02-02-2023 BASO # 0.1 103/ul Normal 0.0-0.1 [facility] Comment on above: Performed By: #### C BC #### [facility] [address] [address] [address] Elise Anderson Basophils/100 WBC (Bld) 0.6 % Normal 0.2-2.0 [facility] Comment on above: Performed By: #### C BC #### [facility] [address] [address] [address] Elise Anderson EO # 0.3 103/ul Normal 0.0-0.7 [facility] Comment on above: Performed By: #### C BC #### [facility] [address] [address] [address] Elise Anderson Eosinophils/100 WBC (Bld) 2.4 % Normal 0.9-7.0 [facility] Comment on above: Performed By: #### C BC #### [facility] [address] [address] [address] Elise Anderson Erythrocyte distribution width (RBC) [Ratio] 13.6 % Normal 11.0-15.0 [facility] Comment on above: Performed By: #### C BC #### [facility] [address] [address] [address] Elise Anderson Hematocrit (Bld) [Volume fraction] 39.6 % Normal 36.0-48.0 [facility] Comment on above: Performed By: #### C BC #### [facility] [address] [address] [address] Elise Anderson Hemoglobin (Bld) [Mass/Vol] 13.3 g/dL Normal 12.0-16.0 [facility] Comment on above: Performed By: #### C BC #### [facility] [address] [address] [address] Elise Anderson IG # 0.05 10e3/ul Critically high 0.00-0.03 [facility] Comment on above: Performed By: #### C BC #### [facility] [address] [place] [address] Dr. Elise Anderson IG % 0.5 % Normal 0.0-0.5 [facility] Comment on above: Performed By: #### C BC #### [facility] [address] [place] [address] Dr. Elise Anderson LYMPH # 2.1 103/ul Normal 1.2-3.8 [facility] Comment on above: Performed By: #### C BC #### [facility] [address] [place] [address] Dr. Elise Anderson Lymphocytes/100 WBC (Bld) 20.4 % Critically low 20.5-60.0 [facility] Comment on above: Performed By: #### C BC #### [facility] [address] [place] [address] Dr. Elise Anderson MANUAL DIFF REQ NO Normal [facility] Comment on above: Performed By: #### C BC #### [facility] [address] [place] [address] Dr. Elise Anderson MCH (RBC) [Entitic mass] 28.6 pg Normal 26.7-34.0 [facility] Comment on above: Performed By: #### C BC #### [facility] [address] [place] [address] Dr. Elise Anderson MCHC (RBC) [Mass/Vol] 33.6 g/dL Normal 29.9-35.2 [facility] Comment on above: Performed By: #### C BC #### [facility] [address] [place] [address] Dr. Elise Anderson MCV (RBC) [Entitic vol] 85.2 fL Normal 81.0-99.0 [facility] Comment on above: Performed By: #### C BC #### [facility] [address] [place] [address] Dr. Elise Anderson MONO # 0.6 103/ul Normal 0.3-0.8 [facility] Comment on above: Performed By: #### C BC #### [facility] [address] [address] [address] Elise Anderson Monocytes/100 WBC (Bld) 5.5 % Normal 1.7-12.0 [facility] Comment on above: Performed By: #### C BC #### [facility] [address] [place] [address] Dr. Elise Anderson NEUT # 7.3 103/ul Critically high 1.4-6.[address] [facility] Comment on above: Performed By: #### C BC #### [facility] [address] [place] [address] Dr. Elise Anderson Neutrophils/100 WBC (Bld) 70.6 % Normal 43.0-75.0 [facility] Comment on above: Performed By: #### C BC #### [facility] [address] [place] [address] Dr. Elise Anderson Platelet mean volume (Bld) [Entitic vol] 10.3 fL Normal 9.5-13.5 [facility] Comment on above: Performed By: #### C BC #### [facility] [address] [place] [address] Dr. Elise Anderson PLT 274 103/ul Normal 150-450 [facility] Comment on above: Performed By: #### C BC #### [facility] [address] [place] [address] Dr. Elise Anderson RBC 4.65 106/ul Normal 4.20-5.40 [facility] Comment on above: Performed By: #### C BC #### [facility] [address] [place] [address] Dr. Elise Anderson WBC 10.3 103/ul Normal 4.0-11.0 [facility] Comment on above: Performed By: #### C BC #### [facility] [address] [place] [address] Dr. Elise Anderson FREE THYROXINE INDEX T7on FTI 3.23 Normal 1.30-4.50 [facility] Comment on above: Performed By: #### L IPID, T7, CMP, TSH ####[facility] [address] [place] [id number] Anderson T3U 32.0 % Normal 30.0-39.0 [facility] Comment on above: Performed By: #### L IPID, T7, CMP, TSH ####[facility] [address] [place], [place] [address]RgClotilde Anderson T4 [Mass/Vol] 10.10 ug/dL Normal 4.80-13.90 [facility] Comment on above: Performed By: #### L IPID, T7, CMP, TSH ####[facility] [address] [place], [place] [address]KgClotilde Anderson GLYCOHEMOGLOBIN A1Con 2022 ADA RECOMMENDATION SEE BELOW Normal [facility] Comment on above: Result Comment: ADA RECOMMENDED LIMIT 4.0 - 6.0 ADA THERAPEUTIC TARGET < 7.0 ACTION SUGGESTED > 7.0 Performed By: #### A 1C #### [facility] [address] [address] [address] Elise Anderson Glucose [Mass/Vol] 197 mg/dL Normal [facility] Comment on above: Performed By: #### A 1C #### [facility] [address] [address] [address] Elise Anderson HbA1c (Bld) [Mass fraction] 8.5 % Critically high 4.5-6.2 [facility] Comment on above: Performed By: #### A 1C #### [facility] [address] [address] [address] Elise Anderson IRONon 02-02-2023 Iron [Mass/Vol] 70.0 ug/dL Normal 50.0-170.0 [facility] Comment on above: Performed By: #### I IAN VITAD #### [facility] [address] [address] [address] Elise Anderson LIPID PROFILEon 02-02-2023 CHOL-HDL RATIO NORM SEE BELOW Normal [facility] Comment on above: Result Comment: 3.3 - 4.4 LOW RISK 4.4 - 7.1 AVERAGE RISK 7.1 - 11.0 MODERATE RISK >11.0 HIGH RISK Performed By: #### L IPID, T7, CMP, TSH ####[facility] [address] [place] [id number]. Elise Anderson Cholesterol [Mass/Vol] 174 mg/dL Normal <=200 [facility] Comment on above: Performed By: #### L IPID, T7, CMP, TSH ####[facility] [address] [place] [id number]. Elise Anderson Cholesterol in HDL [Mass/Vol] 35 mg/dL Critically low 40-60 [facility] Comment on above: Performed By: #### L IPID, T7, CMP, TSH ####[facility] [address] [place] [id number]. Elise Anderson Cholesterol in LDL [Mass/Vol] 118.0 mg/dL Normal [facility] Comment on above: Performed By: #### L IPID, T7, CMP, TSH ####[facility] [address] [address]Dr. Elise Anderson Cholesterol.total/Cho lesterol in HDL [Mass ratio] 5.0 {ratio} Normal [facility] Comment on above: Performed By: #### L IPID, T7, CMP, TSH ####[facility] [address] [place] [id number]. Elise Anderson HDL NORMAL > or = 60 mg/dl - LO W CARDIOVASCULAR RISK <40 mg/dl - HIGH CARDIOVASCULAR RISK Normal [facility] Comment on above: Performed By: #### L IPID, T7, CMP, TSH ####[facility] [address] [place] [id number]. Elise Anderson LDL CALC NORMAL SEE BELOW Normal [facility] Comment on above: Result Comment: <100 mg/dl OPTIMAL 100 - 129 mg/dl NEAR OR ABOVE OPTIMAL 130 - 159 mg/dl BORDERLINE HIGH 160 - 189 mg/dl HIGH >190 mg/dl VERY HIGH Performed By: #### L IPID, T7, CMP, TSH ####[facility] [address] [place] [address]Dr. Elise Anderson Triglyceride [Mass/Vol] 105 mg/dL Normal <=150 [facility] Comment on above: Performed By: #### L IPID, T7, CMP, TSH ####[facility] [address] [place] [address]Dr. Elise Anderson VLDL CALC 21.0 mg/dL Normal [facility] Comment on above: Performed By: #### L IPID, T7, CMP, TSH ####[facility] [address] [place] [address]Dr. Elise Anderson PROF 14(COMP METB)on 023 Albumin [Mass/Vol] 3.5 g/dL Normal 3.4-5.0 [facility] Comment on above: Performed By: #### L IPID, T7, CMP, TSH ####[facility] [address] [address]Dr. Elise Anderson Albumin/Globulin [Mass ratio] 1.0 {ratio} Normal [facility] Comment on above: Performed By: #### L IPID, T7, CMP, TSH ####[facility] [address] [address]Dr. Elise Anderson ALP [Catalytic activity/Vol] 77 U/L Normal 46-116 [facility] Comment on above: Performed By: #### L IPID, T7, CMP, TSH ####[facility] [address] [place] [address]Dr. Elise Anderson ALT [Catalytic activity/Vol] 20 U/L Normal 14-59 [facility] Comment on above: Performed By: #### L IPID, T7, CMP, TSH ####[facility] [address] [address]Dr. Elise Anderson Anion gap [Moles/Vol] 12.9 mmol/L Normal [facility] Comment on above: Performed By: #### L IPID, T7, CMP, TSH ####[facility] [address] [place] [address]Dr. Elise Anderson AST [Catalytic activity/Vol] 12 U/L Critically low 15-37 [facility] Comment on above: Performed By: #### L IPID, T7, CMP, TSH ####[facility] [address] [address]Dr. Elise Anderson Bilirubin [Mass/Vol] 0.4 mg/dL Normal 0.2-1.0 [facility] Comment on above: Performed By: #### L IPID, T7, CMP, TSH ####[facility] [address] [address]Dr. Elise Anderson Calcium [Mass/Vol] 8.9 mg/dL Normal 8.5-10.1 [facility] Comment on above: Performed By: #### L IPID, T7, CMP, TSH ####[facility] [address] [place], [place] [address]Dr. Elise Anderson Chloride [Moles/Vol] 105 mmol/L Normal 98-107 [facility] Comment on above: Performed By: #### L IPID, T7, CMP, TSH ####[facility] [address] [place], [place] [address]Dr. Elise Anderson CO2 [Moles/Vol] 27.7 mmol/L Normal 21.0-32.0 [facility] Comment on above: Performed By: #### L IPID, T7, CMP, TSH ####[facility] [address] [place], [place] [address]Dr. Elise Anderson Creatinine [Mass/Vol] 0.74 mg/dL Normal 0.55-1.02 [facility] Comment on above: Performed By: #### L IPID, T7, CMP, TSH ####[facility] [address] [place], [place] [address]Dr. Elise Anderson EGFR-AF LAO >60 Normal >=60 [facility] Comment on above: Performed By: #### L IPID, T7, CMP, TSH ####[facility] [address] [place], [place] [address]Dr. Elise Anderson EGFR-NON AF LAO >60 Normal >=60 [facility] Comment on above: Performed By: #### L IPID, T7, CMP, TSH ####[facility] [address] [address]Dr. Elise Anderson Globulin (S) [Mass/Vol] 3.5 g/dL Normal [facility] Comment on above: Performed By: #### L IPID, T7, CMP, TSH ####[facility] [address] [address]Dr. Elise Anderson Glucose [Mass/Vol] 196 mg/dL Critically high 74-106 T [facility] Comment on above: Performed By: #### L IPID, T7, CMP, TSH ####[facility] [address] [place] [address]Dr. Elise Anderson Potassium [Moles/Vol] 3.6 mmol/L Normal 3.5-5.1 [facility] Comment on above: Performed By: #### L IPID, T7, CMP, TSH ####[facility] [address] [place] [address]Dr. Elise Anderson Protein [Mass/Vol] 7.0 g/dL Normal 6.4-8.2 [facility] Comment on above: Performed By: #### L IPID, T7, CMP, TSH ####[facility] [address] [place], [place] [address]Dr. Elise Anderson Sodium [Moles/Vol] 142 mmol/L Normal 136-145 [facility] Comment on above: Performed By: #### L IPID, T7, CMP, TSH ####[facility] [address] [address]Dr. Elise Anderson Urea nitrogen [Mass/Vol] 12.0 mg/dL Normal 7.0-18.0 [facility] Comment on above: Performed By: #### L IPID, T7, CMP, TSH ####[facility] [address] [address]Dr. Elise Anderson Urea nitrogen/Creatinine [Mass ratio] 16.2 mg/mg Normal [facility] Comment on above: Performed By: #### L IPID, T7, CMP, TSH ####[facility] [address] [place] [address]Dr. Elise Anderson TSHon 02-02-2023 TSH 1.113 uIU/mL Normal 0.358-3.740 [facility] Comment on above: Performed By: #### L IPID, T7, CMP, TSH ####[facility] [address] [place] [id number] Anderson VITAMIN D 25 OHon 02-02-2023 VIT D 25-OH 49.1 ng/mL Normal [facility] Comment on above: Performed By: #### I IAN VITAD #### [facility] [address] [address] [address] Elise Anderson VIT D RANGES SEE BELOW Normal [facility] Comment on above: Result Comment: <20 ng/mL Vit D deficient 20 - <30 ng/mL Vit D insufficient 30 - 100 ng/mL Vit D sufficient >100 ng/mL Potential Toxicity Performed By: #### I IAN VITAD #### [facility] [address] [place] [address] Dr. Elise Anderson CBC AUTO DIFFon 04-29-2022 BASO # 0.1 103/ul Normal 0.0-0.1 [facility] Comment on above: Performed By: #### C BC ####[facility] [address] [address]DrClotilde Anderson Basophils/100 WBC (Bld) 0.5 % Normal 0.2-2.0 [facility] Comment on above: Performed By: #### C BC ####[facility] [address] [place] [address]DrClotilde Anderson EO # 0.2 103/ul Normal 0.0-0.7 [facility] Comment on above: Performed By: #### C BC ####[facility] [address] [place] [id number] Anderson Eosinophils/100 WBC (Bld) 2.0 % Normal 0.9-7.0 [facility] Comment on above: Performed By: #### C BC ####[facility] [address] [place] [address]DrClotilde Anderson Erythrocyte distribution width (RBC) [Ratio] 12.9 % Normal 11.0-15.0 [facility] Comment on above: Performed By: #### C BC ####[facility] [address] [address]Dr. Elise Anderson Hematocrit (Bld) [Volume fraction] 41.3 % Normal 36.0-48.0 [facility] Comment on above: Performed By: #### C BC ####[facility] [address] [place] [address]Dr. Elise Anderson Hemoglobin (Bld) [Mass/Vol] 13.7 g/dL Normal 12.0-16.0 [facility] Comment on above: Performed By: #### C BC ####[facility] [address] [place], [place] [address]Dr. Elise Anderson IG # 0.03 10e3/ul Normal 0.00-0.03 [facility] Comment on above: Performed By: #### C BC ####[facility] [address] [place], [place] [address]Dr. Erinwalker Anderson IG % 0.3 % Normal 0.0-0.5 [facility] Comment on above: Performed By: #### C BC ####[facility] [address] [place], [place] [address]Dr. Elise Justin LYMPH # 2.0 103/ul Normal 1.2-3.8 [facility] Comment on above: Performed By: #### C BC ####[facility] [address] [place], [place] [address]Dr. Erinwalker Anderson Lymphocytes/100 WBC (Bld) 20.1 % Critically low 20.5-60.0 [facility] Comment on above: Performed By: #### C BC ####[facility] [address] [place], [place] [address]Dr. Erinwalker Anderson MANUAL DIFF REQ NO Normal [facility] Comment on above: Performed By: #### C BC ####[facility] [address] [address]DrClotilde Erinwalker Anderson MCH (RBC) [Entitic mass] 28.1 pg Normal 26.7-34.0 [facility] Comment on above: Performed By: #### C BC ####[facility] [address] [place] [id number]. Elise Anderson MCHC (RBC) [Mass/Vol] 33.2 g/dL Normal 29.9-35.2 [facility] Comment on above: Performed By: #### C BC ####[facility] [address] [place] [id number]. Elise Anderson MCV (RBC) [Entitic vol] 84.8 fL Normal 81.0-99.0 [facility] Comment on above: Performed By: #### C BC ####[facility] [address] [place], [place] [address]Dr. Elise Anderson MONO # 0.5 103/ul Normal 0.3-0.8 [facility] Comment on above: Performed By: #### C BC ####[facility] [address] [place], [place] [address]Dr. Elise Anderson Monocytes/100 WBC (Bld) 4.8 % Normal 1.7-12.0 [facility] Comment on above: Performed By: #### C BC ####[facility] [address] [place], [place] [address]Dr. Elise Anderson NEUT # 7.1 103/ul Critically high 1.4-6.5 [facility] Comment on above: Performed By: #### C BC ####[facility] [address] [place], [place] [address]Dr. Elise Anderson Neutrophils/100 WBC (Bld) 72.3 % Normal 43.0-75.0 [facility] Comment on above: Performed By: #### C BC ####[facility] [address] [place], [place] [address]Dr. Elise Anderson Platelet mean volume (Bld) [Entitic vol] 10.3 fL Normal 9.5-13.5 [facility] Comment on above: Performed By: #### C BC ####[facility] [address] [place], [place] [address]Dr. Elise Anderson PLT 304 103/ul Normal 150-450 [facility] Comment on above: Performed By: #### C BC ####[facility] [address] [place], [place] [address]Zp. Elise Anderson RBC 4.87 106/ul Normal 4.20-5.40 [facility] Comment on above: Performed By: #### C BC ####[facility] [address] [place], [place] [address]JpClotilde Anderson WBC 9.8 103/ul Normal 4.0-11.0 [facility] Comment on above: Performed By: #### C BC ####[facility] [address] [place], [place] [address]RlClotilde Anderson POINT OF CARE GLUCOSEon Glucose [Mass/Vol] 172 mg/dL Critically high 74-106 T [facility] Comment on above: Performed By: #### P OCGLUC #### [facility] [address] [address] [address] Elise Anderson PREG QUANT HCGon 04-29-2022 HCG QUANT <1 Normal [facility] Comment on above: Performed By: #### P REGQNT #### [facility] [address] [address] [address] Elise Anderson HCG RANGE SEE BELOW Normal [facility] Comment on above: Result Comment: 5-50 0-1 WEEK 40-300 1-2 WEEKS 100-1,000 2-3 WEEKS 500-6,000 3-4 WEEKS 5,000-200,000 1-2 MONTHS 10,000-100,000 2-3 MONTHS 3,000-50,000 2ND TRIMESTER 1,000-50,000 3RD TRIMESTER Performed By: #### P REGQNT #### [facility] [address] [address] [address] Elise Anderson [facility]29 SARS-CoV-2 (COVID-19) RNA CHICA+probe Ql (Unsp spec) Not detected Normal NOT DETECTED [facility] Comment on above: Result Comment: This test is not yet approved or cleared by the [place] FDA. When there are no FDA-approved or cleared tests available, and other criteria are met, FDA can make tests available under an emergency access mechanism called an Emergency Use Authorization (EUA). The EUA for this test is supported by the [place] [employer] of Health and Human Service's (HHS's) declaration [...] consistent with SARS-CoV-2. Performed By: #### C [facility] #### [facility] [address] [place] [address] Dr. Elise Anderson PROF CHEM 8 (BAS METB)on Anion gap [Moles/Vol] 11.5 mmol/L Normal [facility] Comment on above: Performed By: #### B MP #### [facility] [address] [place] [address] Dr. Elise Anderson Calcium [Mass/Vol] 9.1 mg/dL Normal 8.5-10.1 [facility] Comment on above: Performed By: #### B MP #### [facility] [address] [place] [address] Dr. Elise Anderson Chloride [Moles/Vol] 99 mmol/L Normal 98-107 [facility] Comment on above: Performed By: #### B MP #### [facility] [address] [place] [address] Dr. Elise Anderson CO2 [Moles/Vol] 29.1 mmol/L Normal 21.0-32.0 [facility] Comment on above: Performed By: #### B MP #### [facility] [address] [place] [address] Dr. Elise Anderson Creatinine [Mass/Vol] 0.93 mg/dL Normal 0.55-1.02 [facility] Comment on above: Performed By: #### B MP #### [facility] [address] [address] [address] Elise Anderson EGFR-AF LAO >60 Normal >=60 [facility] Comment on above: Performed By: #### B MP #### [facility] [address] [address] [address] Elise Anderson EGFR-NON AF LAO >60 Normal >=60 [facility] Comment on above: Performed By: #### B MP #### [facility] [address] [address] [address] Elise Anderson Glucose [Mass/Vol] 385 mg/dL Critically high 74-106 T [facility] Comment on above: Performed By: #### B MP #### [facility] [address] [address] [address] Elise Anderson Potassium [Moles/Vol] 3.6 mmol/L Normal 3.5-5.1 [facility] Comment on above: Performed By: #### B MP #### [facility] [address] [address] [address] Elise Anderson Sodium [Moles/Vol] 136 mmol/L Normal 136-145 [facility] Comment on above: Performed By: #### B MP #### [facility] [address] [address] [address] Elise Anderson Urea nitrogen [Mass/Vol] 15.0 mg/dL Normal 7.0-18.0 [facility] Comment on above: Performed By: #### B MP #### [facility] [address] [address] [address] Elise Anderson Urea nitrogen/Creatinine [Mass ratio] 16.1 mg/mg Normal [facility] Comment on above: Performed By: #### B MP #### [facility] [address] [address] [address] Elise Anderson PAP ACOG PANEL 2: 30 to 65on 02-23-2022 . . Normal [facility] Comment on above: Result Comment: Perf ormed at: WB Performed By: #### [id number] ####[facility] [address] [place], [place] [address]Dr. Elise Anderson Age Gdln ACOG Testing 30-65 Normal [facility] Comment on above: Performed By: #### [id number] ####[facility] [address] [place], [place] [address]Dr. Elise Anderson DIAGNOSIS: Comment Normal [facility] Comment on above: Result Comment: NEGA TIVE FOR INTRAEPITHELIAL LESION OR MALIGNANCY. Performed at: WB Performed By: #### [id number] ####[facility] [address] [place], [place] [address]Dr. Elise Anderson HPV Aptima Negative Normal Negative [facility] Comment on above: Result Comment: This nucleic acid amplification test detects fourteen high-risk HPV types (16,18,31,33,35,39,45,51,52,56,58,59,66,68) without differentiation. Performed at: =G Performed By: #### [id number] ####[place] [address]DrClotilde Anderson Methodology: Comment Normal [facility] Comment on above: Result Comment: This liquid based ThinPrep(R) pap test was screened with the use of an image guided system. Performed at: WB Performed By: #### [id number] ####[place] [address]Dr. Elise Anderson Note: Comment Normal [facility] Comment on above: Result Comment: The Pap smear is a screening test designed to aid in the detection of premalignant and malignant conditions of the uterine cervix. It is not a diagnostic procedure and should not be used as the sole means of detecting cervical cancer. Both false-positive and false-negative reports do occur. . Performed at: WB Performed By: [id number] ####[facility] [id number] [place], [place] [address]DrClotilde Anderson Performed by: Comment Normal [facility] Comment on above: Result Comment: Anahi Romo, Tube Skiver (ASCP) Performed at: [facility] Performed By: [id number] ####[facility] [id number] [place], [place] [address]Dr. Elise Anderson Specimen adequacy: Comment Normal [facility] Comment on above: Result Comment: Sati sfactory for evaluation. Endocervical and/or squamous metaplastic cells (endocervical component) are present. Areas of partially obscuring blood are present. Performed at: WB Performed By: [id number] ####[facility] [address] [place], [place] [address]Hs. Elise Anderson US PELVIS AND TRANSVAGon US [...] by: LACI FRITZ Date: 2022-02-23 15:28 Normal [facility] Encounters Encounter Date Encounter Type Care Provider Facility Start: 02-07-2023 Encounter for genera l adult medical examination without abnormal findings LISA BUTLER [facility] Start: 02-02-2023 End: 02-03-2023 ambulatory LISA BUTLER Facility:[facility] Start: 02-02-2023 End: 02-03-2023 Encounter for general adult medical examination without abnormal findings LISA BUTLER Facility:[facility] Start: 12-21-2022 ambulatory LISA BUTLER Facility: [facility] Start: 05-03-2022 Encounter for prepro cedural laboratory examination DR MARE LEAVITT . [facility] Start: 04-29-2022 End: 04-29-[address] MARE LEAVITT . Facility:[facility] Start: 04-26-2022 End: 04-27-[address] MARE LEAVITT . Facility:[facility] Start: 04-26-2022 End: 04-27-2022 Encounter for preprocedural laboratory examination DR MARE LEAVITT . Facility:[facility] Start: 04-22-2022 Encounter for prepro cedural cardiovascular examination DR MARE LEAVITT . [facility] Start: 04-22-2022 Encounter for prepro cedural laboratory examination DR MARE LEAVITT . [facility] Start: 04-20-2022 End: 04-21-[address] MARE LEAVITT . Facility:[facility] Start: 04-20-2022 End: 04-21-2022 Encounter for preprocedural cardiovascular examination DR MARE LEAVITT . Facility:[facility] Start: 02-23-2022 End: 02-24-[address] MARE LEAVITT . Facility:[facility] Start: 02-16-2022 End: 02-16-[address] MARE LEAVITT . Facility:[facility] Payers Date Payer Category Payer Unknown [id number] 2.16.84 [id number] 1977 Unknown [id number] 2.16.84 [id number] 1977 Unknown [id number] 2.16.84 [id number] 1977 Unknown [id number] 2.16.84 [id number] 1977 Unknown [id number] 2.16.84 [id number] 1977 Unknown [id number] 2.16.84 [id number] 1977 Unknown [id number] 2.16.84 [id number] 1959 Self-pay [id number] 1957 Unknown [id number] Clinical Note 04-29-2022 Note Date & Type [...] and needle counts were correct x2. [facility] Clinical Note 04-29-2022 Note Date & Type Note Facility 04-29-2022 Note OP Note OPERATION DATE: 04/29/2022 PROCEDURE: Bilateral laparoscopic salpingectomy with Nena endometrial ablation. PREOPERATIVE DIAGNOSIS: Menorrhagia, desires permanent sterilization. POSTOPERATIVE DIAGNOSIS: Menorrhagia, desires permanent sterilization. ANESTHESIA: General. SURGEON: Mare Leavitt D.O. RADAR MECHANIC: BRIJESH Zavala URINE OUTPUT: Yellow and clear. [...] taken to recovery in stable condition. 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 05/19/2022 11:48:00 [facility] Summary Purpose Family History No Family History Records Found Advance Directives No Advanced Directives Records Found Additional Source Comments INFORMATION SOURCE (unrecogn ized section and content) DATE CREATED AUTHOR 02/08/2023 [facility] FOR RECORDS PERTAINING TO PATIENTS WHO ARE [...] BE BASED ON THE PRIMARY CLINICAL RECORDS. [employer] provides no warranty or guarantee of the accuracy or completeness of information in this document.
== END 2024-09-03 13:21 | disposition home or self-care (01) ==
LOC: MRI 13:21
PROVIDERS: PCP Nurse Practitioner Family; Visit Provider Podiatrist Foot & Ankle Surgery
DX: M72.2 Plantar fascial fibromatosis (principal)
CPT/HCPCS: 73721

== ENCOUNTER 2024-09-12 09:24 | Outpatient (RCR) | payer OTHER, SELFPAY | END 2024-10-23 07:37 | disposition home or self-care (01) | LOC: PT 09:24 | PROVIDERS: PCP Nurse Practitioner Family; Visit Provider Podiatrist Foot & Ankle Surgery | DX: M72.2 Plantar fascial fibromatosis (principal) | CPT/HCPCS: 97035; 97110; 97112; 97140; 97162 ==

== ENCOUNTER 2024-12-10 10:13 | Outpatient (OUT) | payer OTHER, SELFPAY ==
--- OUTSIDE RECORDS SUMMARY | 2024-12-10 10:20 | XMS_ITS | CCD ---
Author Organization [facility] CliniSyoh Care Team Providers Care Certified Tumor Registrar Name Role Phone JEB ., DR GARVEY [...] Unavailable ZIEBER, DR LACI Manzano [employer] Unavailable CARREI, LISA Admitting Unavailable CARRIE, LISA Primary Care [...] 02-18-2022 Episodic Other aftercare (1 source) Other care home (current) drug therapy; Translations: [OTH ASSISTED CURRENT DRUG THERAPY] Onset: 04-22-2022 Episodic Other [...] 02-03-2023 Insulin 21.2 uIU/mL Normal 2.6-24.9 [facility] Comment on above: Performed By: #### I NSULIN ####[facility] [address] [place], [place] [address]ZdDr. Elise Anderson CBC AUTO DIFFon 02-02-2023 BASO # 0.1 103/ul Normal 0.0-0.1 [facility] Comment on above: Performed By: #### C BC #### [facility] [address] [address] [address] Elise Anderson Basophils/100 WBC (Bld) 0.6 % Normal 0.2-2.0 [facility] Comment on above: Performed By: #### C BC #### [facility] [address] [address] [address] Elise Anderson EO # 0.3 103/ul Normal 0.0-0.7 [facility] Comment on above: Performed By: #### C BC #### [facility] [address] [address] [address] Elise Anderson Eosinophils/100 WBC (Bld) 2.4 % Normal 0.9-7.0 [facility] Comment on above: Performed By: #### C BC #### [facility] [address] [address] [address] Elise Anderson Erythrocyte distribution width (RBC) [Ratio] 13.6 % Normal 11.0-15.0 [facility] Comment on above: Performed By: #### C BC #### [facility] [address] [address] [address] Elise Anderson Hematocrit (Bld) [Volume fraction] 39.6 % Normal 36.0-48.0 [facility] Comment on above: Performed By: #### C BC #### [facility] [address] [address] [address] Elise Anderson Hemoglobin (Bld) [Mass/Vol] 13.3 g/dL Normal 12.0-16.0 [facility] Comment on above: Performed By: #### C BC #### [facility] [address] [address] [address] Elise Anderson IG # 0.05 10e3/ul Critically high 0.00-0.03 [facility] Comment on above: Performed By: #### C BC #### [facility] [address] [place] [address] Dr. Elise Anderson IG % 0.5 % Normal 0.0-0.5 [facility] Comment on above: Performed By: #### C BC #### [facility] [address] [place] [address] Dr. Elise Anderson LYMPH # 2.1 103/ul Normal 1.2-3.8 [facility] Comment on above: Performed By: #### C BC #### [facility] [address] [place] [address] Dr. Elise Anderson Lymphocytes/100 WBC (Bld) 20.4 % Critically low 20.5-60.0 [facility] Comment on above: Performed By: #### C BC #### [facility] [address] [place] [address] Dr. Elise Anderson MANUAL DIFF REQ NO Normal [facility] Comment on above: Performed By: #### C BC #### [facility] [address] [place] [address] Dr. Elise Anderson MCH (RBC) [Entitic mass] 28.6 pg Normal 26.7-34.0 [facility] Comment on above: Performed By: #### C BC #### [facility] [address] [place] [address] Dr. Elise Anderson MCHC (RBC) [Mass/Vol] 33.6 g/dL Normal 29.9-35.2 [facility] Comment on above: Performed By: #### C BC #### [facility] [address] [place] [address] Dr. Elise Anderson MCV (RBC) [Entitic vol] 85.2 fL Normal 81.0-99.0 [facility] Comment on above: Performed By: #### C BC #### [facility] [address] [place] [address] Dr. Elise Anderson MONO # 0.6 103/ul Normal 0.3-0.8 [facility] Comment on above: Performed By: #### C BC #### [facility] [address] [address] [address] Elise Anderson Monocytes/100 WBC (Bld) 5.5 % Normal 1.7-12.0 [facility] Comment on above: Performed By: #### C BC #### [facility] [address] [place] [address] Dr. Elise Anderson NEUT # 7.3 103/ul Critically high 1.4-6.5 [facility] Comment on above: Performed By: #### C BC #### [facility] [address] [place] [address] Dr. Elise Anderson Neutrophils/100 WBC (Bld) 70.6 % Normal 43.0-75.0 [facility] Comment on above: Performed By: #### C BC #### [facility] [address] [place] [address] Dr. Elise Anderson Platelet mean volume (Bld) [Entitic vol] 10.3 fL Normal 9.5-13.5 [facility] Comment on above: Performed By: #### C BC #### [facility] [address] [place] [address] Dr. Elise Anderson PLT 274 103/ul Normal 150-450 [facility] Comment on above: Performed By: #### C BC #### [facility] [address] [place] [address] Dr. Elise Anderson RBC 4.65 106/ul Normal 4.20-5.40 [facility] Comment on above: Performed By: #### C BC #### [facility] [address] [place] [address] Dr. Elise Anderson WBC 10.3 103/ul Normal 4.0-11.0 [facility] Comment on above: Performed By: #### C BC #### [facility] [address] [place] [address] Dr. Elise Anderson FREE THYROXINE INDEX T7on FTI 3.23 Normal 1.30-4.50 [facility] Comment on above: Performed By: #### L IPID, T7, CMP, TSH ####[facility] [address] [id number] Anderson T3U 32.0 % Normal 30.0-39.0 [facility] Comment on above: Performed By: #### L IPID, T7, CMP, TSH ####[facility] [address] [place], [place] [address]ZoClotilde Anderson T4 [Mass/Vol] 10.10 ug/dL Normal 4.80-13.90 [facility] Comment on above: Performed By: #### L IPID, T7, CMP, TSH ####[facility] [address] [place], [place] [address]VwClotilde Anderson GLYCOHEMOGLOBIN A1Con 2022 ADA RECOMMENDATION SEE BELOW Normal [facility] Comment on above: Result Comment: ADA RECOMMENDED LIMIT 4.0 - 6.0 ADA THERAPEUTIC TARGET < 7.0 ACTION SUGGESTED > 7.0 Performed By: #### A 1C #### [facility] [address] [address] [address] Elise Anderson Glucose [Mass/Vol] 197 mg/dL Normal [facility] Comment on above: Performed By: #### A 1C #### [facility] [address] [address] [address] Elise Anderson HbA1c (Bld) [Mass fraction] 8.5 % Critically high 4.5-6.2 [facility] Comment on above: Performed By: #### A 1C #### [facility] [address] [address] [address] Elise Anderson IRONon 02-02-2023 Iron [Mass/Vol] 70.0 ug/dL Normal 50.0-170.0 [facility] Comment on above: Performed By: #### I IAN VITAD #### [facility] [address] [address] [address] Elise Anderson LIPID PROFILEon 02-02-2023 CHOL-HDL RATIO NORM SEE BELOW Normal [facility] Comment on above: Result Comment: 3.3 - 4.4 LOW RISK 4.4 - 7.1 AVERAGE RISK 7.1 - 11.0 MODERATE RISK >11.0 HIGH RISK Performed By: #### L IPID, T7, CMP, TSH ####[facility] [address] [phone]. Eilse Anderson Cholesterol [Mass/Vol] 174 mg/dL Normal <=200 [facility] Comment on above: Performed By: #### L IPID, T7, CMP, TSH ####[facility] [address] [phone]. Elise Anderson Cholesterol in HDL [Mass/Vol] 35 mg/dL Critically low 40-60 [facility] Comment on above: Performed By: #### L IPID, T7, CMP, TSH ####[facility] [address] [phone]. Elise Anderson Cholesterol in LDL [Mass/Vol] 118.0 mg/dL Normal [facility] Comment on above: Performed By: #### L IPID, T7, CMP, TSH ####[facility] [address] [address]Dr. Elise Anderson Cholesterol.total/Cho lesterol in HDL [Mass ratio] 5.0 {ratio} Normal [facility] Comment on above: Performed By: #### L IPID, T7, CMP, TSH ####[facility] [address] [phone]. Elise Anderson HDL NORMAL > or = 60 mg/dl - LO W CARDIOVASCULAR RISK <40 mg/dl - HIGH CARDIOVASCULAR RISK Normal [facility] Comment on above: Performed By: #### L IPID, T7, CMP, TSH ####[facility] [address] [phone]. Elise Anderson LDL CALC NORMAL SEE BELOW Normal [facility] Comment on above: Result Comment: <100 mg/dl OPTIMAL 100 - 129 mg/dl NEAR OR ABOVE OPTIMAL 130 - 159 mg/dl BORDERLINE HIGH 160 - 189 mg/dl HIGH >190 mg/dl VERY HIGH Performed By: #### L IPID, T7, CMP, TSH ####[facility] [address] [address]Dr. Elise Anderson Triglyceride [Mass/Vol] 105 mg/dL Normal <=150 [facility] Comment on above: Performed By: #### L IPID, T7, CMP, TSH ####[facility] [address] [address]Dr. Elise Anderson VLDL CALC 21.0 mg/dL Normal [facility] Comment on above: Performed By: #### L IPID, T7, CMP, TSH ####[facility] [address] [address]Dr. Elise Anderson PROF 14(COMP METB)on 023 Albumin [Mass/Vol] 3.5 g/dL Normal 3.4-5.0 [facility] Comment on above: Performed By: #### L IPID, T7, CMP, TSH ####[facility] [address] [address]Dr. Elise Anderson Albumin/Globulin [Mass ratio] 1.0 {ratio} Normal [facility] Comment on above: Performed By: #### L IPID, T7, CMP, TSH ####[facility] [address] [address]Dr. Elise Anderson ALP [Catalytic activity/Vol] 77 U/L Normal 46-116 [facility] Comment on above: Performed By: #### L IPID, T7, CMP, TSH ####[facility] [address] [address]Dr. Elise Anderson ALT [Catalytic activity/Vol] 20 U/L Normal 14-59 [facility] Comment on above: Performed By: #### L IPID, T7, CMP, TSH ####[facility] [address] [address]Dr. Elise Anderson Anion gap [Moles/Vol] 12.9 mmol/L Normal [facility] Comment on above: Performed By: #### L IPID, T7, CMP, TSH ####[facility] [address] [address]Dr. Elise Anderson AST [Catalytic activity/Vol] 12 U/L Critically low 15-37 [facility] Comment on above: Performed By: #### L IPID, T7, CMP, TSH ####[facility] [address] [address]Dr. Elise Anderson Bilirubin [Mass/Vol] 0.4 mg/dL Normal 0.2-1.0 [facility] Comment on above: Performed By: #### L IPID, T7, CMP, TSH ####[facility] [address] [address]Dr. Elise Anderson Calcium [Mass/Vol] 8.9 mg/dL Normal 8.5-10.1 [facility] Comment on above: Performed By: #### L IPID, T7, CMP, TSH ####[facility] [address] [place], [place] [address]Dr. Elise Anderson Chloride [Moles/Vol] 105 mmol/L Normal 98-107 [facility] Comment on above: Performed By: #### L IPID, T7, CMP, TSH ####[facility] [address] [place], [place] [address]Dr. Elise Anderson CO2 [Moles/Vol] 27.7 mmol/L Normal 21.0-32.[address] [facility] Comment on above: Performed By: #### L IPID, T7, CMP, TSH ####[facility] [address] [place], [place] [address]Dr. Elise Anderson Creatinine [Mass/Vol] 0.74 mg/dL Normal 0.55-1.02 [facility] Comment on above: Performed By: #### L IPID, T7, CMP, TSH ####[facility] [address] [place], [place] [address]Dr. Elise Anderson EGFR-AF KAZAKH >60 Normal >=[address] [facility] Comment on above: Performed By: #### L IPID, T7, CMP, TSH ####[facility] [address] [place], [place] [address]Dr. Elise Anderson EGFR-NON AF KAZAKH >60 Normal >=60 [facility] Comment on above: Performed By: #### L IPID, T7, CMP, TSH ####[facility] [address] [address]Dr. Elise Anderson Globulin (S) [Mass/Vol] 3.5 g/dL Normal [facility] Comment on above: Performed By: #### L IPID, T7, CMP, TSH ####[facility] [address] [address]Dr. Elise Anderson Glucose [Mass/Vol] 196 mg/dL Critically high 74-106 [facility] Comment on above: Performed By: #### L IPID, T7, CMP, TSH ####[facility] [address] [address]Dr. Elise Anderson Potassium [Moles/Vol] 3.6 mmol/L Normal 3.5-5.1 [facility] Comment on above: Performed By: #### L IPID, T7, CMP, TSH ####[facility] [address] [address]Dr. Elise Anderson Protein [Mass/Vol] 7.0 g/dL Normal 6.4-8.2 [facility] Comment on above: Performed By: #### L IPID, T7, CMP, TSH ####[facility] [address] [place], [place] [address]Dr. Elise Anderson Sodium [Moles/Vol] 142 mmol/L Normal 136-145 [facility] Comment on above: Performed By: #### L IPID, T7, CMP, TSH ####[facility] [address] [address]Dr. Elise Anderson Urea nitrogen [Mass/Vol] 12.0 mg/dL Normal 7.0-18.0 [facility] Comment on above: Performed By: #### L IPID, T7, CMP, TSH ####[facility] [address] [address]Dr. Elise Anderson Urea nitrogen/Creatinine [Mass ratio] 16.2 mg/mg Normal [facility] Comment on above: Performed By: #### L IPID, T7, CMP, TSH ####[facility] [address] [address]Dr. Elise Anderson TSHon 02-02-2023 TSH 1.113 uIU/mL Normal 0.358-3.740 [facility] Comment on above: Performed By: #### L IPID, T7, CMP, TSH ####[facility] [address] [phone] Anderson VITAMIN D 25 OHon 02-02-2023 VIT D 25-OH 49.1 ng/mL Normal [facility] Comment on above: Performed By: #### I IAN VITAD #### [facility] [address] [address] [address] Elise Anderson VIT D RANGES SEE BELOW Normal [facility] Comment on above: Result Comment: <20 ng/mL Vit D deficient 20 - <30 ng/mL Vit D insufficient 30 - 100 ng/mL Vit D sufficient >100 ng/mL Potential Toxicity Performed By: #### I IAN VITAD #### [facility] [address] [place] [address] Dr. Elise Anderson CBC AUTO DIFFon 04-29-2022 BASO # 0.1 103/ul Normal 0.0-0.1 [facility] Comment on above: Performed By: #### C BC ####[facility] [address] [address]DrClotilde Anderson Basophils/100 WBC (Bld) 0.5 % Normal 0.2-2.0 [facility] Comment on above: Performed By: #### C BC ####[facility] [address] [address]DrClotilde Adnerson EO # 0.2 103/ul Normal 0.0-0.7 [facility] Comment on above: Performed By: #### C BC ####[facility] [address] [phone] Anderson Eosinophils/100 WBC (Bld) 2.0 % Normal 0.9-7.0 [facility] Comment on above: Performed By: #### C BC ####[facility] [address] [address]DrClotilde Anderson Erythrocyte distribution width (RBC) [Ratio] 12.9 % Normal 11.0-15.0 [facility] Comment on above: Performed By: #### C BC ####[facility] [address] [address]Dr. Elise Anderson Hematocrit (Bld) [Volume fraction] 41.3 % Normal 36.0-48.0 [facility] Comment on above: Performed By: #### C BC ####[facility] [address] [address]Dr. Elise Anderson Hemoglobin (Bld) [Mass/Vol] 13.7 g/dL Normal 12.0-16.0 [facility] Comment on above: Performed By: #### C BC ####[facility] [address] [place], [place] [address]Dr. Elise Anderson IG # 0.03 10e3/ul Normal 0.00-0.03 [facility] Comment on above: Performed By: #### C BC ####[facility] [address] [place], [place] [address]Dr. Erinwalker Anderson IG % 0.3 % Normal 0.0-0.5 [facility] Comment on above: Performed By: #### C BC ####[facility] [address] [place], [place] [address]Dr. Elise Justin LYMPH # 2.0 103/ul Normal 1.2-3.8 [facility] Comment on above: Performed By: #### C BC ####[facility] [address] [place], [place] [address]Dr. Erinwalker Anderson Lymphocytes/100 WBC (Bld) 20.1 % Critically low 20.5-60.0 [facility] Comment on above: Performed By: #### C BC ####[facility] [address] [place], [place] [address]Dr. Erinwalker Anderson MANUAL DIFF REQ NO Normal [facility] Comment on above: Performed By: #### C BC ####[facility] [address] [address]DrClotilde Erinwalker Anderson MCH (RBC) [Entitic mass] 28.1 pg Normal 26.7-34.0 [facility] Comment on above: Performed By: #### C BC ####[facility] [address] [phone]. Elise Anderson MCHC (RBC) [Mass/Vol] 33.2 g/dL Normal 29.9-35.2 [facility] Comment on above: Performed By: #### C BC ####[facility] [address] [phone]. Elise Anderson MCV (RBC) [Entitic vol] 84.8 fL Normal 81.0-99.0 [facility] Comment on above: Performed By: #### C BC ####[facility] [address] [place], [place] [address]Dr. Elise Anderson MONO # 0.5 103/ul Normal 0.3-0.8 [facility] Comment on above: Performed By: #### C BC ####[facility] [address] [place], [place] [address]Dr. Elise Anderson Monocytes/100 WBC (Bld) 4.8 % Normal 1.7-12.0 [facility] Comment on above: Performed By: #### C BC ####[facility] [address] [place], [place] [address]Dr. Elise Anderson NEUT # 7.1 103/ul Critically high 1.4-6.5 [facility] Comment on above: Performed By: #### C BC ####[facility] [address] [place], [place] [address]Dr. Elise Anderson Neutrophils/100 WBC (Bld) 72.3 % Normal 43.0-75.0 [facility] Comment on above: Performed By: #### C BC ####[facility] [address] [place], [place] [id number]. Elise Anderson Platelet mean volume (Bld) [Entitic vol] 10.3 fL Normal 9.5-13.5 [facility] Comment on above: Performed By: #### C BC ####[facility] [address] [place], [place] [address]Dr. Elise Anderson PLT 304 103/ul Normal 150-450 [facility] Comment on above: Performed By: #### C BC ####[facility] [address] [place], [place] [address]Ff. Elise Anderson RBC 4.87 106/ul Normal 4.20-5.40 [facility] Comment on above: Performed By: #### C BC ####[facility] [address] [place], [place] [address]SwClotilde Anderson WBC 9.8 103/ul Normal 4.0-11.0 [facility] Comment on above: Performed By: #### C BC ####[facility] [address] [place], [place] [address]NvClotilde Anderson POINT OF CARE GLUCOSEon Glucose [Mass/Vol] 172 mg/dL Critically high 74-106 [facility] Comment on above: Performed By: #### P OCGLUC #### [facility] [address] [address] [address] Elise Anderson PREG QUANT HCGon 04-29-2022 HCG QUANT <1 Normal [facility] Comment on above: Performed By: #### P REGQNT #### [facility] [address] [address] [address] Elise Anderson HCG RANGE SEE BELOW Normal [facility] Comment on above: Result Comment: 5-50 0-1 WEEK 40-300 1-2 WEEKS 100-1,000 2-3 WEEKS 500-6,000 3-4 WEEKS 5,000-200,000 1-2 MONTHS 10,000-100,000 2-3 MONTHS 3,000-50,000 2ND TRIMESTER 1,000-50,000 3RD TRIMESTER Performed By: #### P REGQNT #### [facility] [address] [address] [address] Elise Anderson [facility] SARS-CoV-2 (COVID-19) RNA CHICA+probe Ql (Unsp spec) Not detected Normal NOT DETECTED [facility] Comment on above: Result Comment: This test is not yet approved or cleared by the [place] FDA. When there are no FDA-approved or cleared tests available, and other criteria are met, FDA can make tests available under an emergency access mechanism called an Emergency Use Authorization (EUA). The EUA for this test is supported by the [place] of Health and Human Service's (HHS's) declaration [...] consistent with SARS-CoV-2. Performed By: #### [facility] #### [facility] [address] [place] [address] Dr. Elise Anderson PROF CHEM 8 (BAS METB)on Anion gap [Moles/Vol] 11.5 mmol/L Normal [facility] Comment on above: Performed By: #### B MP #### [facility] [address] [place] [address] Dr. Elise Anderson Calcium [Mass/Vol] 9.1 mg/dL Normal 8.5-10.1 [facility] Comment on above: Performed By: #### B MP #### [facility] [address] [place] [address] Dr. Elise Anderson Chloride [Moles/Vol] 99 mmol/L Normal 98-107 [facility] Comment on above: Performed By: #### B MP #### [facility] [address] [place] [address] Dr. Elise Anderson CO2 [Moles/Vol] 29.1 mmol/L Normal 21.0-32.0 [facility] Comment on above: Performed By: #### B MP #### [facility] [address] [place] [address] Dr. Elise Anderson Creatinine [Mass/Vol] 0.93 mg/dL Normal 0.55-1.02 [facility] Comment on above: Performed By: #### B MP #### [facility] [address] [address] [address] Elise Anderson EGFR-AF KAZAKH >60 Normal >=60 [facility] Comment on above: Performed By: #### B MP #### [facility] [address] [address] [address] Elise Anderson EGFR-NON AF KAZAKH >60 Normal >=60 [facility] Comment on above: Performed By: #### B MP #### [facility] [address] [address] [address] Elise Anderson Glucose [Mass/Vol] 385 mg/dL Critically high 74-106 T [facility] Comment on above: Performed By: #### B MP #### [facility] [address] [address] [address] Elise Anderson Potassium [Moles/Vol] 3.6 mmol/L Normal 3.5-5.1 [facility] Comment on above: Performed By: #### B MP #### [facility] [address] [address] [address] Elise Anderson Sodium [Moles/Vol] 136 mmol/L Normal 136-145 [facility] Comment on above: Performed By: #### B MP #### [facility] [address] [address] [address] Elise Anderson Urea nitrogen [Mass/Vol] 15.0 mg/dL Normal 7.0-18.0 [facility] Comment on above: Performed By: #### B MP #### [facility] [address] [address] [address] Elise Anderson Urea nitrogen/Creatinine [Mass ratio] 16.1 mg/mg Normal [facility] Comment on above: Performed By: #### B MP #### [facility] [address] [address] [address] Elise Anderson PAP ACOG PANEL 2: 30 to 65on 02-23-2022 . . Normal [facility] Comment on above: Result Comment: Perf ormed at: WB Performed By: #### [id number] ####[facility] [address] [place], [place] [address]Dr. Elise Anderson Age Gdln ACOG Testing 30-65 Normal [facility] Comment on above: Performed By: #### [id number] ####[facility] [address] [place], [place] [address]Dr. Elise Anderson DIAGNOSIS: Comment Normal [facility] Comment on above: Result Comment: NEGA TIVE FOR INTRAEPITHELIAL LESION OR MALIGNANCY. Performed at: WB Performed By: #### [id number] ####[facility] [address] [place], [place] [address]Dr. Elise Anderson HPV Aptima Negative Normal Negative [facility] Comment on above: Result Comment: This nucleic acid amplification test detects fourteen high-risk HPV types (16,18,31,33,35,39,45,51,52,56,58,59,66,68) without differentiation. Performed at: =G Performed By: #### [id number] ####[address] [place] [address]DrClotilde Anderson Methodology: Comment Normal [facility] Comment on above: Result Comment: This liquid based ThinPrep(R) pap test was screened with the use of an image guided system. Performed at: WB Performed By: #### [id number] ####[place] [address]Dr. Elise Anderson Note: Comment Normal [facility] Comment on above: Result Comment: The Pap smear is a screening test designed to aid in the detection of premalignant and malignant conditions of the uterine cervix. It is not a diagnostic procedure and should not be used as the sole means of detecting cervical cancer. Both false-positive and false-negative reports do occur. . Performed at: WB Performed By: #### [id number] ####[facility] [address] [place], [place] [address]DrClotilde Anderson Performed by: Comment Normal [facility] Comment on above: Result Comment: Anahi Romo, Independent Marketing Consultant (ASCP) Performed at: WB Performed By: #### [id number] ####[facility] [address] [place], [place] [address]Dr. Elise Anderson Specimen adequacy: Comment Normal [facility] Comment on above: Result Comment: Sati sfactory for evaluation. Endocervical and/or squamous metaplastic cells (endocervical component) are present. Areas of partially obscuring blood are present. Performed at: WB Performed By: #### [id number] ####[facility] [address] [place], [place] [address]Yo. Elise Anderson US PELVIS AND TRANSVAGon US [...] by: LACI FRITZ Date: 2022-02-23 15:28 Normal [facility] Encounters Encounter Date Encounter Type Care Provider Facility Start: 02-07-2023 Encounter for genera l adult medical examination without abnormal findings LISA BUTLER [facility] Start: 02-02-2023 End: 02-03-2023 ambulatory LISA BUTLER Facility:[facility] Start: 02-02-2023 End: 02-03-2023 Encounter for general adult medical examination without abnormal findings LISA BUTLER Facility:[facility] Start: 12-21-2022 ambulatory LISA BUTLER Facility: [facility] Start: 05-03-2022 Encounter for prepro cedural laboratory examination DR MARE LEAVITT . [facility] Start: 04-29-2022 End: 04-29-[address] MARE LEAVITT . Facility:[facility] Start: 04-26-2022 End: 04-27-[address] MARE LEAVITT . Facility:[facility] Start: 04-26-2022 End: 04-27-2022 Encounter for preprocedural laboratory examination DR MARE LEAVITT . Facility:[facility] Start: 04-22-2022 Encounter for prepro cedural cardiovascular examination DR MARE LEAVITT . [facility] Start: 04-22-2022 Encounter for prepro cedural laboratory examination DR MARE LEAVITT . [facility] Start: 04-20-2022 End: 04-21-[address] MARE LEAVITT . Facility:[facility] Start: 04-20-2022 End: 04-21-2022 Encounter for preprocedural cardiovascular examination DR MARE LEAVITT . Facility:[facility] Start: 02-23-2022 End: 02-24-[address] MARE LEAVITT . Facility:[facility] Start: 02-16-2022 End: 02-16-[address] MARE LEAVITT . Facility:[facility] Payers Date Payer Category Payer Unknown [id number] 2.16.84 [id number] 1977 Unknown [id number] 2.16.84 [id number] 1977 Unknown [id number] 2.16.84 [id number] 1977 Unknown [id number] 2.16.84 [id number] 1977 Unknown [id number] 2.16.84 [id number] 1977 Unknown [id number] 2.16.84 [id number] 1977 Unknown [id number] 2.16.84 [id number] 1959 Self-pay [id number] 1957 Unknown [id number] Clinical Note 04-29-2022 Note Date & Type [...] and needle counts were correct x2. [facility] Clinical Note 04-29-2022 Note Date & Type Note Facility 04-29-2022 Note OP Note OPERATION DATE: 04/29/2022 PROCEDURE: Bilateral laparoscopic salpingectomy with Nena endometrial ablation. PREOPERATIVE DIAGNOSIS: Menorrhagia, desires permanent sterilization. POSTOPERATIVE DIAGNOSIS: Menorrhagia, desires permanent sterilization. ANESTHESIA: General. SURGEON: Mare Leavitt D.O. DICTAPHONE TYPIST: BRIJESH Zavala URINE OUTPUT: Yellow and clear. [...] taken to recovery in stable condition. [facility] Clinical Note 04-29-2022 Note Date & Type Note Facility 04-29-2022 Note [facility] [place], [place] NAME: WILLIE GUZMAN DATE OF : MEDICAL REC#: [id number] CASE BRIEFER: [id number] MONICO GAITAN DATE: 04/29/2022 07:04:00 FIBER WORKER DATE: 05/19/2022 11:37 DICTATING PHYSICIAN: MARE LEAVITT DICTATION DATE: 05/19/2022 11:37 OPERATIVE NOTE OPERATION DATE: 04/29/2022 ANESTHETIC: PREOPERATIVE DIAGNOSIS: menorrhagia, desires permanent sterilization POSTOPERATIVE DIAGNOSIS : same as above ANESTHESIA: general Surgeon: jbe Young Aircraft Tool Maker: BRIJESH Blood loss:10ml Specimen: bilateral tubes Finding:Normal [...] by: DR MARE LEAVITT . 05/19/2022 11:48:00 [facility] Summary Purpose Family History No Family History Records Found Advance Directives No Advanced Directives Records Found Additional Source Comments INFORMATION SOURCE (unrecogn ized section and content) DATE CREATED AUTHOR 02/08/2023 [facility] FOR RECORDS PERTAINING TO PATIENTS [...] BE BASED ON THE PRIMARY CLINICAL RECORDS. [employer] provides no warranty or guarantee of the accuracy or completeness of information in this document.
[2024-12-10 10:44] LABS: Alanine Aminotransferase 23 U/L (14-59); Albumin Globulin Ratio 1.1; Albumin Level 3.5 g/dL (3.4-5.0); Alkaline Phosphatase 79 U/L (46-116); Anion Gap 11.1; Aspartate Amino Transferase 20 U/L (15-37); BUN Creatinine Ratio 13.6; Bilirubin Total 0.4 mg/dL (0.2-1.0); Calcium 8.8 mg/dL (8.5-10.1); Carbon Dioxide 31.3 mmol/L (21.0-32.0); Chloride 104 mmol/L (98-107); Estimated GFR (African America >60 (>=60 mL/min/1.73m^2); Estimated GFR (Non-African Ame >60 (>=60 mL/min/1.73m^2); Globulin 3.3 g/dL; Glucose 158 mg/dL (74-106); Potassium 3.4 mmol/L (3.5-5.1); Sodium 143 mmol/L (136-145); Total Protein 6.8 g/dL (6.4-8.2)
== END 2024-12-10 10:14 | disposition home or self-care (01) ==
LOC: LAB 10:13
PROVIDERS: PCP Nurse Practitioner Family; Visit Provider Nurse Practitioner Family
DX: E87.6 Hypokalemia (principal)
CPT/HCPCS: 36415; 80053

== ENCOUNTER 2024-12-25 09:42 | Outpatient (OUT) | payer OTHER, SELFPAY ==
--- NOTE | 2024-12-25 09:44 | MM_ITS ---
Patient Name: WILLIE GUZMAN MR#: [id number] : 1975 Exam Date: 12/25/2024 Ordering Doctor: DR Eliud Leavitt . RADIOLOGY REPORT PROCEDURE: MM TOMOSYNTHESIS SCREENING BI COMPARISON: MG MAMM SCREEN 3D ADAMARIS CAD, 01/12/2022. MG MAMM SCREEN ADAMARIS W CAD, 11/06/2019. INDICATIONS: Screening Calculator Name NCI Breast Cancer Risk Assessment Tool 5 Year Breast Cancer Risk Not Reported. Lifetime Breast Cancer Risk Not Reported. Personal Breast Cancer No Personal Ovarian Cancer No Treatments None Family Cancers None LOCATION: [facility] BREAST COMPOSITION: There are scattered areas of fibroglandular density. FINDINGS: DIAGNOSTIC CATEGORY 1--NEGATIVE. RIGHT BREAST: No significant suspicious finding. No significant change has occurred. LEFT BREAST: No significant suspicious finding. No significant change has occurred. RECOMMENDATIONS: ROUTINE MAMMOGRAM AND CLINICAL EVALUATION IN 12 MONTHS. PLEASE NOTE: A NORMAL MAMMOGRAM DOES NOT EXCLUDE THE POSSIBILITY OF BREAST CANCER. A CLINICALLY SUSPICIOUS PALPABLE LUMP SHOULD BE BIOPSIED. Dictated by: Henry Peters M.D. on 12/26/2024 at 15:46 Approved by: Henry Peters M.D. on 12/26/2024 at 15:49
== END 2024-12-25 09:43 | disposition home or self-care (01) ==
LOC: MAMMO 09:42
PROVIDERS: PCP Nurse Practitioner Family; Visit Provider Obstetrics & Gynecology
DX: Z12.31 Encounter for screening mammogram for malignant neoplasm of breast (principal)
CPT/HCPCS: 77063; 77067

== ENCOUNTER 2025-05-01 19:56 | Outpatient (REF) | payer OTHER, SELFPAY ==
--- OUTSIDE RECORDS SUMMARY | 2025-05-01 20:01 | XMS_ITS | CCD ---
Author Organization [facility] Care Team Providers Care Occupational Therapy Manager Name Role Phone JEB ., DR GARVEY [...] ., DR GARVEY Attending Unavailable ZIEBER, DR HENRY Manzano Consulting Unavailable CARRIE, LISA Admitting Unavailable CARRIE, LISA Primary Care Unavailable CARRIE, LISA Consulting Unavailable CARRIE, LISA Attending Unavailable Unavailable Primary Care Provider Unavailabl e Problems Active Problems Problem Classification Problem Date Documented Da te Episodic/Chronic Diabetes mellitus with complications (2 sources) Type 2 diabetes mellitus with hyperglycemia; Translations: [Hyperglycemia due to type 2 diabetes mellitus] Onset: 05-04-2022 05-22-2023 Chronic Diabetes mellitus without complication (1 source) Type 2 diabetes mellitus without complications; Translations: [TYPE 2 DM WITHOUT COMPLICATIONS] Onset: 04-22-2022 Chronic Essential hypertension (2 sources) Essential (primary) hypertension; Translations: [Essential hypertension] Onset: 05-04-2022 05-22-2023 Chronic Menstrual disorders (6 sources) Excessive and frequent menstruation with regular cycle; Translations: [Dysmenorrhea, unspecified] Onset: 04-22-2022 Chronic Nutritional deficiencies (2 sources) Vitamin D deficiency, unspecified; Translations: [Vitamin D deficiency] Onset: 05-04-2022 05-22-2023 Chronic Other nervous system disorders (1 source) Bilateral carpal tunnel syndrome; Translations: [Carpal tunnel syndrome, bilateral upper limbs] Onset: 05-22-2023 05-22-2023 Chronic Other nutritional; endocrine; and metabolic disorders (1 source) Morbid (severe) obesity due to excess calories; Translations: [MORBID SEVERE OBES D/T EXCESS GAYATHRI] Onset: 05-04-2022 Chronic Other nutritional; endocrine; and metabolic disorders (1 source) Body mass index (BMI) 40.0-44.9, adult; Translations: [BODY MASS INDEX BMI 40.0-44.9 ADULT] Onset: 05-04-2022 Chronic Thyroid disorders (2 sources) Hypothyroidism, unspecified; Translations: [Hypothyroidism] Onset: 05-04-2022 05-22-2023 Chronic Unclassified (1 source) CONTACT W/AND (SUSP) EXPOS COVID-19; Translations: [CONTACT W/AND (SUSP) EXPOS COVID-19] Onset: 05-03-2022 Past or Other Problems Problem Classification Problem Date Documented Date Episodic/Chronic Abdominal pain (1 source) Right upper quadrant pain; Translations: [Right upper quadrant pain] Onset: 05-22-2023 05-22-2023 Episodic Contraceptive and procreative management (1 source) Encounter for sterilization; Translations: [ENCOUNTER FOR STERILIZATION] Onset: 05-04-2022 Episodic Immunizations and screening for infectious disease (1 source) Encounter for screening for human papillomavirus (HPV); Translations: [ENC SCREENING HUMAN PAPILLOMAVIRUS] Onset: 02-18-2022 Episodic Other aftercare (1 source) Other half-way (current) drug therapy; Translations: [OTH CARE HOME CURRENT DRUG THERAPY] Onset: 04-22-2022 Episodic Other aftercare (1 source) Patient encounter status; Translations: [Encounter for follow-up examination after completed treatment for conditions other than malignant neoplasm] Onset: 05-22-2023 05-22-2023 Episodic Other female genital disorders (1 source) Other specified noninflammatory disorders of vagina; Translations: [OTH SPEC NONINFLAMMATORY D/O VAGINA] Onset: 05-04-2022 Episodic Other screening for suspected conditions (not mental disorders or infectious disease) (4 sources) Encounter for screening for malignant neoplasm of cervix; Translations: [ENC SCREENING MALIG NEOPLASM CERV] Onset: 02-16-2022 Episodic Residual codes; unclassified (1 source) History of endometrial ablation; Translations: [Other specified postprocedural states] Onset: 05-22-2023 05-22-2023 Episodic Spondylosis; intervertebral disc disorders; other back problems (1 source) Chronic neck pain; Translations: [Cervicalgia] Onset: 05-22-2023 05-22-2023 Episodic Results Test Name Value Interpretation Reference Range Facility MM TOMOSYNTHESIS SCREENING B Ion 12-26-2024 [place] [address] Mammography Report Signed Patient: WILLIE BROWN MR#: [id number] : 1975 Acct:[id number] Age/Sex: 49 / F ADM Date: 12/25/24 Loc: MAMMO Attending Dr: Mare Leavitt D.O. Ordering Physician: Mare Leavitt D.O. Results: Date of Service: 12/25/24 Follow Up: Procedure(s): MM tomosynthesis screening BI Accession Number(s): [id number] cc: LISA BUTLER ; Mare Leavitt D.O. Patient Name: WILLIE BROWN MR#: [id number] : 1975 Exam Date: 12/25/2024 Ordering Doctor: DR Mare Leavitt . RADIOLOGY REPORT PROCEDURE: MM TOMOSYNTHESIS SCREENING BI COMPARISON: MG MAMM SCREEN 3D ADAMARIS CAD, 01/12/2022. MG MAMM SCREEN ADAMARIS W CAD, 11/06/2019. INDICATIONS: Screening Calculator Name NCI Breast Cancer Risk Assessment Tool 5 Year Breast Cancer Risk Not Reported. Lifetime Breast Cancer Risk Not Reported. Personal Breast Cancer No Personal Ovarian Cancer No Treatments None Family Cancers None LOCATION: [facility] BREAST COMPOSITION: There are scattered areas of fibroglandular density. FINDINGS: DIAGNOSTIC CATEGORY 1--NEGATIVE. RIGHT BREAST: No significant suspicious finding. No significant change has occurred. LEFT BREAST: No significant suspicious finding. No significant change has occurred. RECOMMENDATIONS: ROUTINE MAMMOGRAM AND CLINICAL EVALUATION IN 12 MONTHS. PLEASE NOTE: A NORMAL MAMMOGRAM DOES NOT EXCLUDE THE POSSIBILITY OF BREAST CANCER. A CLINICALLY SUSPICIOUS PALPABLE LUMP SHOULD BE BIOPSIED. Dictated by: Henry Peters M.D. on 12/26/2024 at 15:46 Approved by: Henry Peters M.D. on 12/26/2024 at 15:49 Dictated By: Henry Peters M.D. Signed By: 12/26/24 1550 DD/ 1549 TD/TT: Can Patcher: [facility] Radiology, Radiologist, MD - 12/26/2024 [place] [address] Mammography Report Signed Patient: WILLIE BROWN MR#: [id number] : 1975 Acct:[id number] Age/Sex: 49 / F ADM Date: 12/25/24 Loc: MAMMO Attending Dr: Mare Leavitt D.O. Ordering Physician: Mare Leavitt D.O. Results: Date of Service: 12/25/24 Follow Up: Procedure(s): MM tomosynthesis screening BI Accession Number(s): [id number] cc: LISA BUTLER ; Mare Leavitt D.O. Patient Name: WILLIE BROWN MR#: [id number] : 1975 Exam Date: 12/25/2024 Ordering Doctor: DR Mare Leavitt . RADIOLOGY REPORT PROCEDURE: MM TOMOSYNTHESIS SCREENING BI COMPARISON: MG MAMM SCREEN 3D ADAMARIS CAD, 01/12/2022. MG MAMM SCREEN ADAMARIS W CAD, 11/06/2019. INDICATIONS: Screening Calculator Name NCI Breast Cancer Risk Assessment Tool 5 Year Breast Cancer Risk Not Reported. Lifetime Breast Cancer Risk Not Reported. Personal Breast Cancer No Personal Ovarian Cancer No Treatments None Family Cancers None LOCATION: [facility] BREAST COMPOSITION: There are scattered areas of fibroglandular density. FINDINGS: DIAGNOSTIC CATEGORY 1--NEGATIVE. RIGHT BREAST: No significant suspicious finding. No significant change has occurred. LEFT BREAST: No significant suspicious finding. No significant change has occurred. RECOMMENDATIONS: ROUTINE MAMMOGRAM AND CLINICAL EVALUATION IN 12 MONTHS. PLEASE NOTE: A NORMAL MAMMOGRAM DOES NOT EXCLUDE THE POSSIBILITY OF BREAST CANCER. A CLINICALLY SUSPICIOUS PALPABLE LUMP SHOULD BE BIOPSIED. Dictated by: Henry Peters M.D. on 12/26/2024 at 15:46 Approved by: Henry Peters M.D. on 12/26/2024 at 15:49 Dictated By: Henry Peters M.D. Signed By: 12/26/24 1550 DD/ 1549 TD/TT: Can Patcher: [facility] Radiology Study observation (narrative) [facility] MM TOMOSYNTHESIS SCREENING B IOrdered By: Radiologist Radiology on 12-26-2024 [facility] Work Phone: INSULINon 02-03-2023 Insulin 21.2 uIU/mL Normal 2.6-24.9 [facility] Comment on above: Performed By: #### I NSULIN ####[facility] [address] [address]Dr. Elise Anderson CBC AUTO DIFFon 02-02-2023 BASO # 0.1 103/ul Normal 0.0-0.1 [facility] Comment on above: Performed By: #### C BC #### [facility] [address] [address] [address] Elise Anderson Basophils/100 WBC (Bld) 0.6 % Normal 0.2-2.0 [facility] Comment on above: Performed By: #### C BC #### [facility] [address] [address] [address] Elise Anderson EO # 0.3 103/ul Normal 0.0-0.7 [facility] Comment on above: Performed By: #### C BC #### [facility] [address] [address] [address] Elise Anderson Eosinophils/100 WBC (Bld) 2.4 % Normal 0.9-7.0 [facility] Comment on above: Performed By: #### C BC #### [facility] [address] [place] [address] Dr. Elise Anderson Erythrocyte distribution width (RBC) [Ratio] 13.6 % Normal 11.0-15.0 [facility] Comment on above: Performed By: #### C BC #### [facility] [address] [place] [address] Dr. Elise Anderson Hematocrit (Bld) [Volume fraction] 39.6 % Normal 36.0-48.0 [facility] Comment on above: Performed By: #### C BC #### [facility] [address] [place] [address] Dr. Elise Anderson Hemoglobin (Bld) [Mass/Vol] 13.3 g/dL Normal 12.0-16.0 [facility] Comment on above: Performed By: #### C BC #### [facility] [address] [place] [address] Dr. Elise Anderson IG # 0.05 10e3/ul Critically high 0.00-0.03 [facility] Comment on above: Performed By: #### C BC #### [facility] [address] [place] [address] Dr. Elise Anderson IG % 0.5 % Normal 0.0-0.5 [facility] Comment on above: Performed By: #### C BC #### [facility] [address] [place] [address] Dr. Elise Anderson LYMPH # 2.1 103/ul Normal 1.2-3.8 [facility] Comment on above: Performed By: #### C BC #### [facility] [address] [place] [address] Dr. Elise Anderson Lymphocytes/100 WBC (Bld) 20.4 % Critically low 20.5-60.0 [facility] Comment on above: Performed By: #### C BC #### [facility] [address] [place] [address] Dr. Elise Anderson MANUAL DIFF REQ NO Normal [facility] Comment on above: Performed By: #### C BC #### [facility] [address] [place] [address] Dr. Elise Anderson MCH (RBC) [Entitic mass] 28.6 pg Normal 26.7-34.0 [facility] Comment on above: Performed By: #### C BC #### [facility] [address] [address] [address] Elise Anderson MCHC (RBC) [Mass/Vol] 33.6 g/dL Normal 29.9-35.2 [facility] Comment on above: Performed By: #### C BC #### [facility] [address] [address] [address] Elise Anderson MCV (RBC) [Entitic vol] 85.2 fL Normal 81.0-99.0 [facility] Comment on above: Performed By: #### C BC #### [facility] [address] [place] [address] Dr. Elise Anderson MONO # 0.6 103/ul Normal 0.3-0.8 [facility] Comment on above: Performed By: #### C BC #### [facility] [address] [place] [address] Dr. Elise Anderson Monocytes/100 WBC (Bld) 5.5 % Normal 1.7-12.0 [facility] Comment on above: Performed By: #### C BC #### [facility] [address] [place] [address] Dr. Elise Anderson NEUT # 7.3 103/ul Critically high 1.4-6.5 [facility] Comment on above: Performed By: #### C BC #### [facility] [address] [place] [address] Dr. Elise Anderson Neutrophils/100 WBC (Bld) 70.6 % Normal 43.0-75.0 [facility] Comment on above: Performed By: #### C BC #### [facility] [address] [address] [address] Elise Anderson Platelet mean volume (Bld) [Entitic vol] 10.3 fL Normal 9.5-13.5 [facility] Comment on above: Performed By: #### C BC #### [facility] [address] [address] [address] Elise Anderson PLT 274 103/ul Normal 150-450 [facility] Comment on above: Performed By: #### C BC #### [facility] [address] [address] [address] Elise Anderson RBC 4.65 106/ul Normal 4.20-5.40 [facility] Comment on above: Performed By: #### C BC #### [facility] [address] [address] [address] Elise Anderson WBC 10.3 103/ul Normal 4.0-11.0 [facility] Comment on above: Performed By: #### C BC #### [facility] [address] [address] [address] Elise Anderson FREE THYROXINE INDEX T7on FTI 3.23 Normal 1.30-4.50 [facility] Comment on above: Performed By: #### L IPID, T7, CMP, TSH ####[facility] [address] [address]Dr. Elise Anderson T3U 32.0 % Normal 30.0-39.0 [facility] Comment on above: Performed By: #### L IPID, T7, CMP, TSH ####[facility] [address] [place] [address]Dr. Elise Anderson T4 [Mass/Vol] 10.10 ug/dL Normal 4.80-13.90 [facility] Comment on above: Performed By: #### L IPID, T7, CMP, TSH ####[facility] [address] [place] [address]Dr. Elise Anderson GLYCOHEMOGLOBIN A1Con 2022 ADA RECOMMENDATION SEE BELOW Normal [facility] Comment on above: Result Comment: ADA RECOMMENDED LIMIT 4.0 - 6.0 ADA THERAPEUTIC TARGET < 7.0 ACTION SUGGESTED > 7.0 Performed By: #### A 1C #### [facility] [address] [address] [address] Elise Anderson Glucose [Mass/Vol] 197 mg/dL Normal [facility] Comment on above: Performed By: #### A 1C #### [facility] [address] [place], [place] [address] Dr. Elise Anderson HbA1c (Bld) [Mass fraction] 8.5 % Critically high 4.5-6.2 [facility] Comment on above: Performed By: #### A 1C #### [facility] [address] [place], [place] [address] Dr. Elise Anderson IRONon 02-02-2023 Iron [Mass/Vol] 70.0 ug/dL Normal 50.0-170.0 [facility] Comment on above: Performed By: #### I MONIQUE SOSA #### [facility] [address] [address] [address] Elise Anderson LIPID PROFILEon 02-02-2023 CHOL-HDL RATIO NORM SEE BELOW Normal [facility] Comment on above: Result Comment: 3.3 - 4.4 LOW RISK 4.4 - 7.1 AVERAGE RISK 7.1 - 11.0 MODERATE RISK >11.0 HIGH RISK Performed By: #### L IPID, T7, CMP, TSH ####[facility] [address] [place], [place] [address]UiClotilde Anderson Cholesterol [Mass/Vol] 174 mg/dL Normal <=200 [facility] Comment on above: Performed By: #### L IPID, T7, CMP, TSH ####[facility] [address] [place], [place] [address]CzClotilde Anderson Cholesterol in HDL [Mass/Vol] 35 mg/dL Critically low 40-60 [facility] Comment on above: Performed By: #### L IPID, T7, CMP, TSH ####[facility] [address] [place], [place] [address]BhClotilde Anderson Cholesterol in LDL [Mass/Vol] 118.0 mg/dL Normal [facility] Comment on above: Performed By: #### L IPID, T7, CMP, TSH ####[facility] [address] [place], [place] [address]EdClotilde Anderson Cholesterol.total/Ch olesterol in HDL [Mass ratio] 5.0 {ratio} Normal [facility] Comment on above: Performed By: #### L IPID, T7, CMP, TSH ####[facility] [address] [address]Dr. Elise Anderson HDL NORMAL > or = 60 mg/dl - LO W CARDIOVASCULAR RISK <40 mg/dl - HIGH CARDIOVASCULAR RISK Normal [facility] Comment on above: Performed By: #### L IPID, T7, CMP, TSH ####[facility] [address] [address]Dr. Elise Anderson LDL CALC NORMAL SEE BELOW Normal [facility] Comment on above: Result Comment: <100 mg/dl OPTIMAL 100 - 129 mg/dl NEAR OR ABOVE OPTIMAL 130 - 159 mg/dl BORDERLINE HIGH 160 - 189 mg/dl HIGH >190 mg/dl VERY HIGH Performed By: #### L IPID, T7, CMP, TSH ####[facility] [address] [place] [address]Dr. Elise Anderson Triglyceride [Mass/Vol] 105 mg/dL Normal <=150 [facility] Comment on above: Performed By: #### L IPID, T7, CMP, TSH ####[facility] [address] [place] [address]Dr. Elise Anderson VLDL CALC 21.0 mg/dL Normal [facility] Comment on above: Performed By: #### L IPID, T7, CMP, TSH ####[facility] [address] [address]Dr. Elise Anderson PROF 14(COMP METB)on 023 Albumin [Mass/Vol] 3.5 g/dL Normal 3.4-5.0 [facility] Comment on above: Performed By: #### L IPID, T7, CMP, TSH ####[facility] [address] [address]Dr. Elise Anderson Albumin/Globulin [Mass ratio] 1.0 {ratio} Normal [facility] Comment on above: Performed By: #### L IPID, T7, CMP, TSH ####[facility] [address] [address]Dr. Elise Anderson ALP [Catalytic activity/Vol] 77 U/L Normal 46-116 [facility] Comment on above: Performed By: #### L IPID, T7, CMP, TSH ####[facility] [address] [place] [address]Dr. Elise Anderson ALT [Catalytic activity/Vol] 20 U/L Normal 14-59 [facility] Comment on above: Performed By: #### L IPID, T7, CMP, TSH ####[facility] [address] [place] [address]Dr. Elise Anderson Anion gap [Moles/Vol] 12.9 mmol/L Normal [facility] Comment on above: Performed By: #### L IPID, T7, CMP, TSH ####[facility] [address] [place] [address]Dr. Elise Anderson AST [Catalytic activity/Vol] 12 U/L Critically low 15-37 [facility] Comment on above: Performed By: #### L IPID, T7, CMP, TSH ####[facility] [address] [place], [place] [address]Dr. Elise Anderson Bilirubin [Mass/Vol] 0.4 mg/dL Normal 0.2-1.0 [facility] Comment on above: Performed By: #### L IPID, T7, CMP, TSH ####[facility] [address] [place] [address]Dr. Elise Anderson Calcium [Mass/Vol] 8.9 mg/dL Normal 8.5-10.1 [facility] Comment on above: Performed By: #### L IPID, T7, CMP, TSH ####[facility] [address] [place] [address]Dr. Elise Anderson Chloride [Moles/Vol] 105 mmol/L Normal 98-107 [facility] Comment on above: Performed By: #### L IPID, T7, CMP, TSH ####[facility] [address] [address]Dr. Elise Anderson CO2 [Moles/Vol] 27.7 mmol/L Normal 21.0-32.0 [facility] Comment on above: Performed By: #### L IPID, T7, CMP, TSH ####[facility] [address] [address]Dr. Elise Anderson Creatinine [Mass/Vol] 0.74 mg/dL Normal 0.55-1.02 [facility] Comment on above: Performed By: #### L IPID, T7, CMP, TSH ####[facility] [address] [address]Dr. Elise Anderson EGFR-AF NIUEAN >60 Normal >=60 [facility] Comment on above: Performed By: #### L IPID, T7, CMP, TSH ####[facility] [address] [address]Dr. Erinwalker Anderson EGFR-NON AF NIUEAN >60 Normal >=60 [facility] Comment on above: Performed By: #### L IPID, T7, CMP, TSH ####[facility] [address] [place], [place] [address]Dr. Erinwalker Justin Globulin (S) [Mass/Vol] 3.5 g/dL Normal [facility] Comment on above: Performed By: #### L IPID, T7, CMP, TSH ####[facility] [address] [place], [place] [address]Dr. Elise Anderson Glucose [Mass/Vol] 196 mg/dL Critically high 74-106 [facility] Comment on above: Performed By: #### L IPID, T7, CMP, TSH ####[facility] [address] [address]Dr. Elise Anderson Potassium [Moles/Vol] 3.6 mmol/L Normal 3.5-5.1 [facility] Comment on above: Performed By: #### L IPID, T7, CMP, TSH ####[facility] [address] [address]Dr. Elise Anderson Protein [Mass/Vol] 7.0 g/dL Normal 6.4-8.2 [facility] Comment on above: Performed By: #### L IPID, T7, CMP, TSH ####[facility] [address] [place] [address]Dr. Elise Anderson Sodium [Moles/Vol] 142 mmol/L Normal 136-145 [facility] Comment on above: Performed By: #### L IPID, T7, CMP, TSH ####[facility] [address] [place] [address]Dr. Elise Anderson Urea nitrogen [Mass/Vol] 12.0 mg/dL Normal 7.0-18.0 [facility] Comment on above: Performed By: #### L IPID, T7, CMP, TSH ####[facility] [address] [place] [address]Dr. Elise Anderson Urea nitrogen/Creatinine [Mass ratio] 16.2 mg/mg Normal [facility] Comment on above: Performed By: #### L IPID, T7, CMP, TSH ####[facility] [address] [address]Dr. Elise Anderson TSHon 02-02-2023 TSH 1.113 uIU/mL Normal 0.358-3.740 [facility] Comment on above: Performed By: #### L IPID, T7, CMP, TSH ####[facility] [address] [place] [address]DrClotilde Anderson VITAMIN D 25 OHon 02-02-2023 VIT D 25-OH 49.1 ng/mL Normal [facility] Comment on above: Performed By: #### I MONIQUE SOSA #### [facility] [address] [place] [address] Dr. Elise Anderson VIT D RANGES SEE BELOW Normal [facility] Comment on above: Result Comment: <20 ng/mL Vit D deficient 20 - <30 ng/mL Vit D insufficient 30 - 100 ng/mL Vit D sufficient >100 ng/mL Potential Toxicity Performed By: #### I MONIQUE SOSA #### [facility] [address] [place] [address] Dr. Elise Anderson CBC AUTO DIFFon 04-29-2022 BASO # 0.1 103/ul Normal 0.0-0.1 [facility] Comment on above: Performed By: #### C BC ####[facility] [address] [place] [address]Dr. Elise Anderson Basophils/100 WBC (Bld) 0.5 % Normal 0.2-2.0 [facility] Comment on above: Performed By: #### C BC ####[facility] [address] [place], [place] [address]Dr. Elise Anderson EO # 0.2 103/ul Normal 0.0-0.7 [facility] Comment on above: Performed By: #### C BC ####[facility] [address] [place], [place] [address]Dr. Elise Anderson Eosinophils/100 WBC (Bld) 2.0 % Normal 0.9-7.0 [facility] Comment on above: Performed By: #### C BC ####[facility] [address] [place], [place] [address]Dr. Eilse Anderson Erythrocyte distribution width (RBC) [Ratio] 12.9 % Normal 11.0-15.0 [facility] Comment on above: Performed By: #### C BC ####[facility] [address] [place], [place] [address]Dr. Elise Anderson Hematocrit (Bld) [Volume fraction] 41.3 % Normal 36.0-48.0 [facility] Comment on above: Performed By: #### C BC ####[facility] [address] [address] [place], [place] [id number]. Elise Anderson Hemoglobin (Bld) [Mass/Vol] 13.7 g/dL Normal 12.0-16.0 [facility] Comment on above: Performed By: #### C BC ####[facility] Fjacffqb[address] [place], [place] [address]Dr. Elise Anderson IG # 0.03 10e3/ul Normal 0.00-0.03 [facility] Comment on above: Performed By: #### C BC ####[facility] Dfvwpolfcf[address] [place], [place] [address]Dr. Elise Anderson IG % 0.3 % Normal 0.0-0.5 [facility] Comment on above: Performed By: #### C BC ####[facility] [address]coupo[address] [place] [address]Dr. Elise Anderson LYMPH # 2.0 103/ul Normal 1.2-3.8 [facility] Comment on above: Performed By: #### C BC ####[facility] P[address]vcvklhkm7[address] [place] [address]Dr. Elise Anderson Lymphocytes/100 WBC (Bld) 20.1 % Critically low 20.5-60.0 [facility] Comment on above: Performed By: #### C BC ####[facility] Ldjadgzcqc6[address] [place] [address]Dr. Elise Anderson MANUAL DIFF REQ NO Normal [facility] Comment on above: Performed By: #### C BC ####[facility] Euhbm[address]jap[address] [place] [address]Dr. Elise Anderson MCH (RBC) [Entitic mass] 28.1 pg Normal 26.7-34.0 [facility] Comment on above: Performed By: #### C BC ####[facility] Yfslvvfvdk[address] [place] [address]Dr. Elise Anderson MCHC (RBC) [Mass/Vol] 33.2 g/dL Normal 29.9-35.2 [facility] Comment on above: Performed By: #### C BC ####[facility] [address]zbdt[address] [place] [address]Dr. Elise Anderson MCV (RBC) [Entitic vol] 84.8 fL Normal 81.0-99.0 [facility] Comment on above: Performed By: #### C BC ####[facility] K[address]mb[address] [place] [address]Dr. Elise Anderson MONO # 0.5 103/ul Normal 0.3-0.8 [facility] Comment on above: Performed By: #### C BC ####[facility] Nrfsrfgtry7[address] [place] [address]Dr. Elise Anderson Monocytes/100 WBC (Bld) 4.8 % Normal 1.7-12.0 [facility] Comment on above: Performed By: #### C BC ####[facility] Nnecegtrpy[address] [place] [address]Dr. Elise Anderson NEUT # 7.1 103/ul Critically high 1.4-6.5 [facility] Comment on above: Performed By: #### C BC ####[facility] Drhgmvgvaw5[address] [place] [address]Dr. Elise Anderson Neutrophils/100 WBC (Bld) 72.3 % Normal 43.0-75.0 [facility] Comment on above: Performed By: #### C BC ####[facility] [address]ep[address] [place] [address]Dr. Elise Anderson Platelet mean volume (Bld) [Entitic vol] 10.3 fL Normal 9.5-13.5 [facility] Comment on above: Performed By: #### C BC ####[facility] [address]wf[address] [place] [address]Dr. Elise Anderson PLT 304 103/ul Normal 150-450 [facility] Comment on above: Performed By: #### C BC ####[facility] J[address]iejqgq[address] [place] [address]Dr. Elise Anderson RBC 4.87 106/ul Normal 4.20-5.40 [facility] Comment on above: Performed By: #### C BC ####[facility] [address]wexil[address] [place] [address]Dr. Elise Anderson WBC 9.8 103/ul Normal 4.0-11.0 [facility] Comment on above: Performed By: #### C BC ####[facility] Zsbicyfkhk[address] [place] [address]DrClotilde Anderson POINT OF CARE GLUCOSEon 06-0 Glucose [Mass/Vol] 172 mg/dL Critically high 74-106 [facility] Comment on above: Performed By: #### P OCGLUC #### [facility] [address] [address] [address] Elise Anderson PREG QUANT HCGon - HCG QUANT <1 Normal [facility] Comment on above: Performed By: #### P REGQNT #### [facility] [address] [address] [address] Elise Anderson HCG RANGE SEE BELOW Normal [facility] Comment on above: Result Comment: 5-50 0-1 WEEK 40-300 1-2 WEEKS 100-1,000 2-3 WEEKS 500-6,000 3-4 WEEKS 5,000-200,000 1-2 MONTHS 10,000-100,000 2-3 MONTHS 3,000-50,000 2ND TRIMESTER 1,000-50,000 3RD TRIMESTER Performed By: #### P REGQNT #### [facility] [address] [place] [address] Dr. Elise Anderson Covid-19 PCR (CVDTB)on 03-29 SARS-CoV-2 (COVID-19) RNA CHICA+probe Ql (Unsp spec) Not detected Normal NOT DETECTED [facility] Comment on above: Result Comment: This test is not yet approved or cleared by the [place] FDA. When there are no FDA-approved or cleared tests available, and other criteria are met, FDA can make tests available under an emergency access mechanism called an Emergency Use Authorization (EUA). The EUA for this test is supported by the [place] of Health and Human Service's (HHS's) declaration [...] consistent with SARS-CoV-2. Performed By: #### C VDTBH #### [facility] [address] [place], [place] [id number] Dr. Elise Anderson PROF CHEM 8 (BAS METB)on Anion gap [Moles/Vol] 11.5 mmol/L Normal [facility] Comment on above: Performed By: #### B MP #### [facility] [address] [address] [address] Elise Anderson Calcium [Mass/Vol] 9.1 mg/dL Normal 8.5-10.1 [facility] Comment on above: Performed By: #### B MP #### [facility] [address] [address] [address] Elise Anderson Chloride [Moles/Vol] 99 mmol/L Normal 98-107 [facility] Comment on above: Performed By: #### B MP #### [facility] [address] [address] [address] Elise Anderson CO2 [Moles/Vol] 29.1 mmol/L Normal 21.0-32.0 [facility] Comment on above: Performed By: #### B MP #### [facility] [address] [address] [address] Elise Anderson Creatinine [Mass/Vol] 0.93 mg/dL Normal 0.55-1.02 [facility] Comment on above: Performed By: #### B MP #### [facility] [address] [address] [address] Elise Anderson EGFR-AF NIUEAN >60 Normal >=60 [facility] Comment on above: Performed By: #### B MP #### [facility] [address] [address] [address] Elise Anderson EGFR-NON AF NIUEAN >60 Normal >=60 [facility] Comment on above: Performed By: #### B MP #### [facility] [address] [address] [address] Elise Anderson Glucose [Mass/Vol] 385 mg/dL Critically high 74-106 [facility] Comment on above: Performed By: #### B MP #### [facility] [address] [address] [address] Elise Anderson Potassium [Moles/Vol] 3.6 mmol/L Normal 3.5-5.1 [facility] Comment on above: Performed By: #### B MP #### [facility] [address] [address] [address] Elise Anderson Sodium [Moles/Vol] 136 mmol/L Normal 136-145 [facility] Comment on above: Performed By: #### B MP #### [facility] [address] [address] [address] Elise Anderson Urea nitrogen [Mass/Vol] 15.0 mg/dL Normal 7.0-18.0 [facility] Comment on above: Performed By: #### B MP #### [facility] [address] [address] [address] Elise Anderson Urea nitrogen/Creatinine [Mass ratio] 16.1 mg/mg Normal [facility] Comment on above: Performed By: #### B MP #### [facility] [address] [address] [address] Elise Anderson PAP ACOG PANEL 2: 30 to 65on 02-23-2022 . . Normal [facility] Comment on above: Result Comment: Perf ormed at: WB Performed By: #### 4 [id number] ####[facility] [address] [place] [address]Dr. Elise Anderson Age Gdln ACOG Testing 30-65 Normal [facility] Comment on above: Performed By: #### 4 [id number] ####[facility] [address] [place] [address]Dr. Elise Anderson DIAGNOSIS: Comment Normal [facility] Comment on above: Result Comment: NEGA TIVE FOR INTRAEPITHELIAL LESION OR MALIGNANCY. Performed at: WB Performed By: #### 4 [id number] ####[facility] [address] [place] [address]Dr. Elise Anderson HPV Aptima Negative Normal Negative [facility] Comment on above: Result Comment: This nucleic acid amplification test detects fourteen high-risk HPV types (16,18,31,33,35,39,45,51,52,56,58,59,66,68) without differentiation. Performed at: =G Performed By: #### 4 [id number] ####[facility] [address] [place] [address]Dr. Elise Anderson Methodology: Comment Normal [facility] Comment on above: Result Comment: This liquid based ThinPrep(R) pap test was screened with the use of an image guided system. Performed at: WB Performed By: #### 4 [id number] ####[facility] [address]ild[address] [place] [address]Dr. Elise Anderson Note: Comment Normal [facility] Comment on above: Result Comment: The Pap smear is a screening test designed to aid in the detection of premalignant and malignant conditions of the uterine cervix. It is not a diagnostic procedure and should not be used as the sole means of detecting cervical cancer. Both false-positive and false-negative reports do occur. . Performed at: WB Performed By: #### 4 [id number] ####[facility] [address] [place] [address]Dr. Elise Anderson Performed by: Comment Normal [facility] Comment on above: Result Comment: Anahi Romo, Operations Manager Station (ASCP) Performed at: WB Performed By: #### 4 [id number] ####[facility] [address] [place] [address]Dr. Elise Anderson Specimen adequacy: Comment Normal [facility] Comment on above: Result Comment: Sati sfactory for evaluation. Endocervical and/or squamous metaplastic cells (endocervical component) are present. Areas of partially obscuring blood are present. Performed at: WB Performed By: #### 4 [id number] ####[facility] [address] [place] [address]Dr. Elise Anderson US PELVIS AND TRANSVAGon US [...] account for patient's symptoms. Electronically authenticated by: HENRY PETERS Date: 2022-02-23 15:28 Normal [facility] Encounters Encounter Date Encounter Type Care Provider Facility Start: 12-26-2024 End: 12-26-2024 Clinisync Result Encounter Mare Leavitt DO Work Phone: [facility] Unsolicited Start: 12-26-2024 End: 12-26-2024 Clinisync Result Encounter Mare Leavitt DO Work Phone: [facility] Unsolicited Start: 02-07-2023 Encounter for genera l adult medical examination without abnormal findings LISA BUTLER [facility] Start: 02-02-2023 End: 02-03-2023 ambulatory LISA BUTLER Facility:[facility]1 Start: 02-02-2023 End: 02-03-2023 Encounter for general adult medical examination without abnormal findings LISA BUTLER Facility:[facility] Start: 12-21-2022 ambulatory LISA BUTLER Facility: [facility] Start: 05-03-2022 Encounter for preprocedural laboratory examination DR MARE LEAVITT . [facility] Start: 04-29-2022 End: 04-29-[address] MARE LEAVITT . Facility:[facility] Start: 04-26-2022 End: 04-27-[address] MARE LEAVITT . Facility:[facility] Start: 04-26-2022 End: 04-27-2022 Encounter for preprocedural laboratory examination DR MARE LEAVITT . Facility:[facility] Start: 04-22-2022 Encounter for preprocedural cardiovascular examination DR MARE LEAVITT . [facility] Start: 04-22-2022 Encounter for preprocedural laboratory examination DR MAER LEAVITT . [facility] Start: 04-20-2022 End: 04-21-[address] MARE LEAVITT . Facility:[facility] Start: 04-20-2022 End: 04-21-2022 Encounter for preprocedural cardiovascular examination DR MARE LEAVITT . Facility: Start: 02-23-2022 End: 02-24-[address] MARE LEAVITT . Facility:[facility] Start: 02-16-2022 End: 02-16-[address] MARE LEAVITT . Facility: Procedures Date Procedure Procedure Detail Performing Clinician Start: 12-26-2024 MM TOMOSYNTHESIS SCREENING BI Mare Leavitt DO Work Phone: Start: 05-22-2023 H/O: surgery H/O bilateral salpingectomy Mare Leavitt DO Work Phone: Plan of Treatment Date Care Activity Detail Author Start: 05-01-2025 End: 05-01-2025 Patient encounter procedure 05/01/2025 8:30 AM EDT Office Visit [facility] [address] [place] [address] Mare Leavitt DO [address] [place] [address] [facility] Payers Date Payer Category Payer Managed Care O (unspecified) [employer] [id number] 1975 Unknown [id number] 1977 Unknown [id number]. [id number] 1977 Unknown [id number]. [id number] 1977 Unknown [id number]. [id number] 1977 Unknown [id number] [id number]. 2.593 1977 Unknown [id number]. 2.593 1977 Unknown [id number]. 2.593 1957 Self-pay [id number] 1957 Unknown [id number] Social History Date Type Detail Facility Tobacco smoking stat [facility] Tobacco smoking consumption unknown [facility] Start: 1975 Sex assigned at Not on file [facility] Gender identity [facility] file [facility] 04-29-2022 Note Date & Type [...] and needle counts were correct x2. [facility] Clinical Note 04-29-2022 Note Date & Type Note Facility 04-29-2022 Note OP Note OPERATION DATE: 04/29/2022 PROCEDURE: Bilateral laparoscopic salpingectomy with Nena endometrial ablation. PREOPERATIVE DIAGNOSIS: Menorrhagia, desires permanent sterilization. POSTOPERATIVE DIAGNOSIS: Menorrhagia, desires permanent sterilization. ANESTHESIA: General. SURGEON: Mare Leavitt D.O. PULP MILL SUPERVISOR: BRIJESH Zavala URINE OUTPUT: Yellow and clear. [...] taken to recovery in stable condition. [facility] Clinical Note 04-29-2022 Note Date & Type Note Facility 04-29-2022 Note The [place], [place] NAME: WILLIE BROWN DATE OF : MEDICAL REC#: [id number] MAINTAINABILITY ENGINEER: [id number] MONICO GAITAN DATE: 04/29/2022 07:04:00 [facility] DATE: 05/19/2022 11:37 DICTATING PHYSICIAN: MARE LEAVITT DICTATION DATE: 05/19/2022 11:37 OPERATIVE NOTE OPERATION DATE: 04/29/2022 ANESTHETIC: PREOPERATIVE DIAGNOSIS: menorrhagia, desires permanent sterilization POSTOPERATIVE DIAGNOSIS : same as above ANESTHESIA: general Surgeon: jeb Young Parts Control Clerk: BRIJESH Blood loss:10ml Specimen: bilateral tubes Finding:Normal [...] Leavitt DO on 05/19/2022 11:48 AM EDT [facility] Signed and Approved by: DR MARE LEAVITT . 05/19/2022 11:48:00 [facility] Summary Purpose Family History No Family History Records Found Advance Directives No Advanced Directives Records Found Additional Source Comments INFORMATION SOURCE (unrecogn ized section and content) DATE CREATED AUTHOR 02/08/2023 The [employer]kit taylor FOR RECORDS PERTAINING TO PATIENTS WHO ARE [...] BE BASED ON THE PRIMARY CLINICAL RECORDS. [facility] [employer] [facility]. provides no warranty or guarantee of the accuracy or completeness of information in this document.
[2025-05-06 15:08] LABS: Age Gdln ACOG Testing Note (.); HPV Aptima Negative (Negative); IGP, Aptima HPV, rfx 16/18,45 Note (.)
== END 2025-05-01 19:57 | disposition home or self-care (01) ==
LOC: LAB 19:56
PROVIDERS: PCP Nurse Practitioner Family; Visit Provider Obstetrics & Gynecology
DX: Z01.419 Encounter for gynecological examination (general) (routine) without abnormal findings (principal)
CPT/HCPCS: 87624; 88175

== ENCOUNTER 2025-07-16 08:47 | Outpatient (OUT) | payer OTHER, SELFPAY ==
--- OUTSIDE RECORDS SUMMARY | 2025-05-02 07:24 | XMS_ITS ---
Author Organization [facility] in [place] Address [address] [place] [address] Care Team Providers Care Head Of [place] Name Role Phone Deborah Arriola Primary Care Provider Encounters Encounter Location Date Provider Diagnosis [facility] [address] [place] [address] 05/02/2025 Deborah Arriola Wellness examination Z00.00 Assessments Encounter Date Diagnosis (ICD Code) Assessment Notes Treatment Notes Treatment Clinical Notes Section Notes 05/02/2025 Wellness examination (ICD-10 - Z00.00) Plan Of Treatment Pending Test Test Name Order Date HEMOGLOBIN A1C (GLYCO) 05/02/2025 IRON, TOTAL 05/02/2025 LIPID PANEL (CHOL/TRIG/HDL/LDL) 05/02/20 25 VITAMIN D, 25 LEVEL (TOTAL) 05/02/2025 Insulin Level 05/02/2025 THYROID PANEL (T4/TSH/FREE T3) 5 CMP (COMP MET COLES) w/eGFR CKD-EPI 2024 CBC WITH DIFF 05/02/2025 Progress Notes * Juana BROWN LDOB:[birth year] (50 yo F)Acc No.[id number]:05/02/2025 Patient: Natacha WUJuana GODWIN :1975 A ge:50 Y S ex:Female Address:[address] [place] [address], [phone] Subjective: * Chief Complaints: * * Medical History: * Surgical History: * Hospitalization/Major Diagno stic Procedure: * Medications: Objective: * Vitals: * Physical Examination: Assessment: * Assessment: 1. [facility] examination - Z00.00 (Primary) Plan: * Treatment: * Procedure Codes: * true * Date: Generated for Shayan turner/Isacc/Iris on: 0 07/16/2025 08:49 AM EDT
--- OUTSIDE RECORDS SUMMARY | 2025-05-02 07:26 | XMS_ITS ---
Author Organization [facility] in [place] Address [address] [place] [address] Care Team Providers Care Ruby Rails Developer Name Role Phone Deborah Arriola Primary Care Provider [phone] REASON FOR VISIT yearly labs Encounters Encounter Location Date Provider Diagnosis [facility] [address] [place] [address] 05/02/2025 Deborah Arriola Plan Of Treatment No Information Progress Notes * Juana BROWN LDOB:[birth year] (50 yo F)Acc No.[id number]:05/02/2025 Patient: Natacha Juana COX :1975 A ge:50 Y S ex:Female Address:[address] [place] [address], [phone] * true * Date: Generated for Printi ng/Faxing/eTransmitting on: 0 07/16/2025 08:50 AM EDT
--- OUTSIDE RECORDS SUMMARY | 2025-07-16 08:50 | XMS_ITS | Clinical Summary ---
Author Organization [facility] Address [address] [place] [address] Care Team Providers Care Boat Engine Mechanic Name Role Phone Deborah Arriola MD Primary Care Provider [phone] Allergies No known active allergies Medications Jardiance 10 MG 04/12/2025 Act raysa amLODIPine (Norvasc) 5 MG tablet TAKE 1 TABLET BY MOUTH ONCE DAILY 30 09/13/2024 Active glipiZIDE XL (Glucotrol XL) 5 MG 24 hr tablet Take 5 mg by mouth in the morning. 08/21/2024 Active hydroCHLOROthia zide (HYDRODiuril) 25 MG tablet 1 (one) time each day at the same time Active levothyroxine (Synthroid, Levoxyl) 75 MCG tablet TAKE 1 TABLET BY MOUTH EVERY MORNING ON AN EMPTY STOMACH 30 08/09/2024 Active cholecalciferol (Vitamin D-3) 25 MCG (1000 UT) capsule Take 1,000 Units by mouth Daily Active Active Problems Problem Noted Date Diagnosed Date Bilateral carpal tunnel syndrome 05/22/2023 Chronic neck pain 05/22/2023 Encounter for follow-up exam ination after completed treatment for conditions other than malignant neoplasm 05/22/2023 Essential hypertension 05/22/2023 H/O bilateral salpingectomy 05/22/2023 History of endometrial ablation 05/22/2023 Hyperglycemia due to type 2 diabetes mellitus Hypothyroidism 05/22/2023 Right upper quadrant pain 05/22/2023 Vitamin D deficiency 05/22/2023 Encounters Date Type Department Care Team Description 05/14/2025 Orders Only [facility] [address] [place] [address] Kary Sam DIETER 05/01/2025 8:30 AM EDT Office Visit [facility] [address] [place] [phone] Eliud Leavitt DO Well woman exam with routine gynecological exam; Encounter for screening mammogram for malignant neoplasm of breast; Menorrhagia with irregular cycle 05/01/2025 Clinisync Result Encounter [facility] Unsolicited Eliud Leavitt DO 05/01/2025 Bamboo flowsheet [facility] [address] [place] [id number] Eliud Leavitt DO from Last 3 Months Social History Tobacco Use Types Packs/Day Years Used Date Smoking Tobacco: Never Assessed Comments No Sex and Gender Information Value Date Recorded Sex Assigned at Not on file Legal Sex Female 7:10 PM EDT Gender Identity Not on file Sexual Orientation Not on file Last Filed Vital Signs Vital Sign Reading Time Taken Comments Blood Pressure 132/90 05/01/2025 8:50 AM EDT Pulse - - Temperature - - Respiratory Rate - - Oxygen Saturation - - Inhaled Oxygen Concentration - - Weight 93.4 kg (206 lb) 05/01/2025 8:50 AM EDT Height - - Body Mass Index - - Plan of Treatment Upcoming Encounters Date Type Department Care Team (Late st Contact Info) Description 05/07/2026 10:00 AM EDT Office Visit [facility] [address] [place] [phone] Eliud Leavitt DO [address] [place] [address] Procedures Procedure Name Priority Date/Time Associated Diagnosis Comments IGP,APTIMA HPV,AGE GDLN Routine 05/01/2025 8:42 AM EDT PAP SMEAR Routine 05/01/2025 12:00 AM EDT from Last 3 Months Results * IGP,APTIMA HPV,AGE GDLN (05/01/2025 8:42 AM EDT) AGE GDLN AC TESTING Note . [facility] Comment: TESTS RESULT FLAG UNITS REF RANGE LAB Clinician Provided Cytology Information Source.............Cervix;Endocervix No. of containers..01 ThinPrep Vial Age Lucilao ACOG Janeth... FLAG LEGEND: L-Low Normal,H-High Normal,LL-Alert Low,HH-Alert High <-Panic Low,>-Panic High,A-Abnormal,AA-Critical Abnormal Performed at: 01 =G [address] [address] Neelam Fuentes MD, IGP, APTIMA HPV, RFX 16/18,45 Note . [facility] Comment: TESTS RESULT FLAG UNITS REF RANGE LAB DIAGNOSIS: 02 NEGATIVE FOR INTRAEPITHELIAL LESION OR MALIGNANCY. Specimen adequacy: 02 Satisfactory for evaluation. Endocervical and/or squamous metaplastic cells (endocervical component) are present. Performed by: 02 Shirley Laughlin Biomass Boiler Operator ([facility]) . 02 Note: Note 02 The Pap smear is a screening test designed to aid in the detection of premalignant and malignant conditions of the uterine cervix. It is not a diagnostic procedure and should not be used as the sole means of detecting cervical cancer. Both false-positive and false-negative reports do occur. Test Methodology: Note 02 This liquid based ThinPrep(R) pap test was screened with the use of an image guided system. HPV Genotype Reflex Note 02 Criteria not met, HPV Genotype not performed. FLAG LEGEND: L-Low Normal,H-High Normal,LL-Alert Low,HH-Alert High <-Panic Low,>-Panic High,A-Abnormal,AA-Critical Abnormal Performed at: [address] [address] Neelam Fuentes MD, HPV APTIMA Negative Negative [facility] Comment: This nucleic acid amplification test detects fourteen high- risk HPV types (16,18,31,33,35,39,45,51,52,56,58,59,66,68) without differentiation. Performed at: =[address] [id number] Pad Assembler: Neelam Fuentes MD, Phone: [phone] Performed at: [address] [id number] Pad Assembler: Neelam Fuentes MD, Phone: [phone] 05/01/2025 8:42 AM EDT 05/01/2025 9:46 PM EDT Narrative [facility] - 05/06/2025 3:08 PM EDT BRUSH-SPATULA CERVIX ENDOCERVIX us Eilud Tree DO LAB BLOOD ORDERABLES Final Resul t [facility] * Pap Smear (05/01/2025 12:00 AM EDT) Swab Cervical swab / Unknown us Eliud Tree DO LAB CYTOLOGY ORDERABLES Final Re sult EXTERNAL LAB from Last 3 Months Insurance [employer] Care Teams Boat Engine Mechanic Relationship Specialty Start Date End Date Deborah Arriola MD [address] [place] [address] PCP - General 04/24/25
--- OUTSIDE RECORDS SUMMARY | 2025-07-16 08:50 | XMS_ITS | Patient Health Record ---
Author Organization The [facility] in [place] Address [address] [place] [address] Care Team Providers Care Cook Specialty Name Role Phone Deborah Butler Primary Care Provider Lakisha Minor Unavailable [phone] Jhonkathya Estuardo Unavailable [phone] Allergies No Known Allergies Results Component Value Reference Range Notes PROF 14(COMP METB) Reviewed date:12/10/2024 01:55:21 PM Interpretation: Performing Lab: Notes/Report: [facility] , Sodium 143 136-145 mmol/L Potassium 3.4 3.5-5.1 mmol/L Chloride 104 98-107 mmol/L Carbon Dioxide 31.3 21.0-32.0 mmol/L Anion Gap 11.1 Glucose 158 74-106 mg/dL Blood Urea Nitrogen 12.0 7.0-18.0 mg/dL Creatinine 0.88 0.55-1.02 mg/dL Estimated GFR ( Yumiko >60 >=60 mL/min/1.73m 2 Estimated GFR (Non- Claudia >60 >=60 mL/min/1.73m 2 BUN Creatinine Ratio 13.6 Calcium 8.8 8.5-10.1 mg/dL Bilirubin Total 0.4 0.2-1.0 mg/dL Aspartate Amino Transferase 20 15-37 U/L Alanine Aminotransferase 23 14-59 U/L Alkaline Phosphatase 79 46-116 U/L Total Protein 6.8 6.4-8.2 g/dL Albumin Level 3.5 3.4-5.0 g/dL Globulin 3.3 Albumin Globulin Ratio 1.1 Performing Lab: see note ML - [facility] LB IGP,Aptima HPV,Age Gdln Reviewed date:05/07/2025 09:58:47 AM Interpretation: Performing Lab: Notes/Report: BRUSH-SPATULA CERVIX ENDOCERVIX LabcoBartolo godinez Gdln ACOG Testing Note . [address] [place] [address] Performed at: L-Low Normal,H-High Normal,LL-Alert Low,HH-Alert High FLAG LEGEND: No. of containers..01 ThinPrep Vial <-Panic Low,>-Panic High,A-Abnormal,AA-Cri tical Abnormal Neelam Fuentes MD, Clinician Provided Cytology Information Source.............Cer vix;Endocervix Age Algo ACOG Janeth... 30-65 01 01 =G [facility] TESTS RESULT FLAG UNITS REF RANGE LAB IGP, Aptima HPV, rfx 16/18,45 Note . FLAG LEGEND: NEGATIVE FOR INTRAEPITHELIAL LESION OR MALIGNANCY. HPV Genotype Reflex Note 02 cancer. Both false-positive and false-negative reports do Satisfactory for evaluation. Endocervical and/or squamous metaplastic Test Methodology: Note 02 Shirley Laughlin, Director Of Consulting Services (ASCP) cells (endocervical component) are present. uterine cervix. It is not a diagnostic procedure and Specimen adequacy: 02 This liquid based ThinPrep(R) pap test was screened with <-Panic Low,>-Panic High,A-Abnormal,AA-Cri tical Abnormal 02 [facility] [place] occur. The Pap smear is a screening test designed to aid in the Neelam Fuentes MD, Performed by: 02 detection of premalignant and malignant conditions of the the use of an image guided system. . 02 Criteria not met, HPV Genotype not performed. L-Low Normal,H-High Normal,LL-Alert Low,HH-Alert High Performed at: Note: Note 02 TESTS RESULT FLAG UNITS REF RANGE LAB should not be used as the sole means of detecting cervical [address] [place] [address] DIAGNOSIS: 02 HPV Aptima Negative Negative Performed at: [facility] This nucleic acid amplification test detects fourteen high- Performed at: =[facility] Trench Shovel Operator: Neelam Fuentes MD, Phone: [phone] Trench Shovel Operator: Neelam Fuentes MD, Phone: [phone] without differentiation. [address] [place], [place] [id number] [address] [place], [place] [id number] risk HPV types (16,18,31,33,35,39,45, 51,52,56,58,59,66,68) Performing Lab: see note - [facility] MM tomosynthesis screening B I Reviewed date:01/17/2025 03:38:26 PM Interpretation: Performing Lab: Notes/Report: Source Facility: [facility] [address] [place] [address] Mammography Report Signed Patient: WILLIE BROWN MR#: [id number] : 1975 Acct:[id number] Age/Sex: 49 / F ADM Date: 12/25/24 Loc: MAMMO Attending Dr: Eliud Leavitt D.O. Ordering Physician: Eliud Leavitt D.O. Results: Date of Service: 12/25/24 Follow Up: Procedure(s): MM tomosynthesis screening BI Accession Number(s): [id number] cc: DEBORAH BUTLER ; Eliud Leavitt D.O. Patient Name: WILLIE BROWN MR#: [id number] : 1975 Exam Date: 12/25/2024 Ordering Doctor: DR Eliud Leavitt . RADIOLOGY REPORT PROCEDURE: MM TOMOSYNTHESIS SCREENING BI COMPARISON: MG MAMM SCREEN 3D ADAMARIS CAD, 01/12/2022. MG MAMM SCREEN ADAMARIS W CAD, 11/06/2019. INDICATIONS: Screening Calculator Name NCI Breast Cancer Risk Assessment Tool 5 Year Breast Cancer Risk Not Reported. Lifetime Breast Cancer Risk Not Reported. Personal Breast Cancer No Personal Ovarian Cancer No Treatments None Family Cancers None LOCATION: [facility] BREAST COMPOSITION: There are scattered areas of [...] PALPABLE LUMP SHOULD BE BIOPSIED. Dictated by: eHnry Peters M.D. on 12/26/2024 at 15:46 Approved by: Henry Peters M.D. on 12/26/2024 at 15:49 Dictated By: Henry Peters M.D. Signed By: 12/26/24 1550 DD/ 1549 TD/TT: Senior Site Manager: [place] [address] Mammography Report Signed Patient: WILLIE BROWN MR#: [id number] : 1975 Acct:[id number] Age/Sex: 49 / F ADM Date: 12/25/24 Loc: MAMMO Attending Dr: Eliud Leavitt D.O. Ordering Physician: Eliud Leavitt D.O. Results: Date of Service: 12/25/24 Follow Up: Procedure(s): MM tomosynthesis screening BI Accession Number(s): [id number] cc: DEBORAH BUTLER ; Eliud Leavitt D.O. Patient Name: WILLIE BROWN MR#: [id number] : 1975 Exam Date: 12/25/2024 Ordering Doctor: DR Eliud Leavitt . RADIOLOGY REPORT PROCEDURE: MM TOMOSYNTHESIS SCREENING BI COMPARISON: MG MAMM SCREEN 3D ADAMARIS CAD, 01/12/2022. MG MAMM SCREEN ADAMARIS W CAD, 11/06/2019. INDICATIONS: Screening Calculator Name NCI Breast Cancer Risk Assessment Tool 5 Year Breast Cancer Risk Not Reported. Lifetime Breast Canc er Risk Not Reported. Personal Breast Canc er No Personal Ovarian Can cer No Treatments None Family Cancers None LOCATION: The [place] BREAST COMPOSITION: There are scattered areas of fibroglandular density. FINDINGS: DIAGNOSTIC CATEGORY 1--NEGATIVE. RIGHT BREAST: No significant suspicious finding. No significant change has occurred. LEFT BREAST: No significant suspicious finding. No significant change has occurred. RECOMMENDATIONS: ROUTINE MAMMOGRAM AN D CLINICAL EVALUATION IN 12 MONTHS. PLEASE NOTE: A BARBARA L MAMMOGRAM DOES NOT EXCLUDE THE POSSIBILITY OF BREAST CANCER. A CLINICALLY SUSPICIOUS PALPABLE LUMP SHOULD BE BIOPSIED. Dictated by: Henry Peters M.D. on 12/26/2024 at 15:46 Approved by: Henry Petesr M.D. on 12/26/2024 at 15:49 Dictated By: Henry Peters M.D. Signed By: 12/26/24 1550 DD/ 1549 TD/TT: Senior Site Manager: MR jani chavez (Not yet reviewed by provider) Interpretation: Performing Lab: Notes/Report: Source Facility: [facility] [place] [address] [place] [address] Magnetic Resonance Report Signed Patient: WILLIE BROWN MR#: [id number] : 1975 Acct:[id number] Age/Sex: 49 / F ADM Date: 09/03/24 Loc: MRI Attending Dr: Lakisha Minor D.P.M. Ordering Physician: Lakisha Minor D.P.M. Date of Service: 09/03/24 Procedure(s): MR ankle RT wo con Accession Number(s): [id number] cc: DEBORAH BUTLER ; Lakisha Minor D.P.M. [place] [address] Patient Name: WILLIE BROWN MRN: [id number] date: 1975 Sex: F Assigned Patient Location: MRI Current Patient Location: MRI Accession/Order Number: [id number] Exam Date: 09/03/2024 13:38 Report Date: 09/04/2024 17:11 At the request of: LAKISHA MINOR Procedure: MR ankle RT wo con EXAM: MR ankle RT wo con HISTORY: Plantar Fascia Rupture S96.811 COMPARISON: 08/25/2024 TECHNIQUE: MRI images obtained with multiple sequences. MRI of the right ankle without contrast. Sequences obtained by standard department protocol. FINDINGS: Mild degeneration of the ankle joint. No ankle joint effusion. Achilles tendon is intact. Plantar fascia is intact. Extensor, flexor and peroneal tendons are intact. Moderate degeneration at the second tarsometatarsal joint. Mild degeneration at the other tarsometatarsal joints. Anterior talofibular, posterior talofibular and calcaneofibular ligaments are intact. Deltoid ligament fibers are intact. No acute fractures. MR/MR ankle RT wo con IMPRESSION: 1. No acute tendinous or ligamentous abnormality. 2. Plantar fascial is intact where visualized. 3. Mild degeneration at the ankle joint. 4. No acute fractures. Electronically authenticated by: RENY MARTINEZ Date: 09/04/2024 17:11 Dictated By: Reny Martinez M.D. Signed By: 09/04/241713 DD/ 10 TD/TT: Senior Site Manager: [place] [address] Magnetic Resonance Report Signed Patient: WILLIE BROWN MR#: [id number] : 1975 Acct:[id number] Age/Sex: 49 / F ADM Date: 09/03/24 Loc: MRI Attending Dr: Lakisha Minor D.P.M. Ordering Physician: Lakisha Minor D.P.M. Date of Service: 09/03/24 Procedure(s): ank le RT wo con Accession Number(s): [id number] cc: DEBORAH BUTLER ; Lakisha Minor D.P.M. [place] [address] Patient Name: WILLIE BROWN MRN: [id number] date: 1975 Sex: F Assigned Patient Location: MRI Current Patient Location: MRI Accession/Order Numb er: [id number] Exam Date: 13:38 Report Date: 09/04/2024 17:11 At the request of: LAKISHA MINOR Procedure: MR ankle RT wo con EXAM: MR ankle RT wo con HISTORY: Plantar Fas magdalena Rupture S96.811 COMPARISON: 08/25/2024 TECHNIQUE: MRI image s obtained with multiple sequences. MRI of the right ankle without contrast. Sequences obtained by standard department protocol. FINDINGS: Mild degeneration of the ankle joint. No ankle joint effusion. Achilles tendon is intact. Plantar fascia is intact. Extensor, flexor and peroneal tendons are intact. Moderate degeneratio n at the second tarsometatarsal joint. Mild degeneration at the other tarsometatarsal joints. Anterior talofibular , posterior talofibular and calcaneofibular ligaments are intact. Deltoid ligament fib ers are intact. No acute fractures. MR/MR ankle RT wo con IMPRESSION: 1. No acute tendinou s or ligamentous abnormality. 2. Plantar fascial i s intact where visualized. 3. Mild degeneration at the ankle joint. 4. No acute fractures. Electronically authenticated by: RENY MARTINEZ Date: 09/04/2024 17:11 Dictated By: Reny Martinez M.D. Signed By: 09/04/241713 DD/ 10 TD/TT: Senior Site Manager: EMI ankle RT min 3V Reviewed date:08/26/2024 09:42:01 AM Interpretation: Performing Lab: Notes/Report: Source Facility: [facility] [place] [address] [place] [address] XRay Report Signed Patient: WILLIE BROWN MR#: [id number] : 1975 Acct:[id number] Age/Sex: 49 / F ADM Date: 08/25/24 Loc: ER Attending Dr: Ordering Physician: Tariq Varner M.D. Date of Service: 08/25/24 Procedure(s): XR ankle RT min 3V Accession Number(s): [id number] cc: DEBORAH BUTLER ; Tariq Varner M.D. [place] [address] Patient Name: WILLIE BROWN MRN: [id number] date: 1975 Sex: F Assigned Patient Location: ER Current Patient Location: Accession/Order Number: [id number] Exam Date: 08/25/2024 14:32 Report Date: 08/25/2024 15:38 At the request of: TARIQ VARNER Procedure: XR ankle RT min 3V HISTORY: c/o pain COMPARISON: There are no previous studies available for comparison. TECHNIQUE: 3 views of the right ankle. FINDINGS: BONE DENSITY: Normal. JOINTS: No acute abnormality. FRACTURE: No acute fracture. DISLOCATION: None. SOFT TISSUES: No radiopaque foreign body. XR/XR ankle RT min 3V IMPRESSION: No acute osseous or joint abnormality. Electronically authenticated by: GABRIEL YOST Date: 08/25/2024 15:38 Dictated By: Gabriel Yost M.D. Signed By: 08/25/24 1540 DD/ 1538 TD/TT: Senior Site Manager: [place] [address] XRay Report Signed Patient: WILLIE BROWN MR#: [id number] : 1975 Acct:[id number] Age/Sex: 49 / F ADM Date: 08/25/24 Loc: ER Attending Dr: Ordering Physician: Tariq Varner M.D. Date of Service: 08/25/24 Procedure(s): XR ank le RT min 3V Accession Number(s): [id number] cc: DEBORAH BUTLER ; Tariq Varner M.D. [facility] [place] [address] Patient Name: WILLIE BROWN MRN: [id number] date: 1975 Sex: F Assigned Patient Location: ER Current Patient Location: Accession/Order Numb er: [id number] Exam Date: 08/25/2024 14:32 Report Date: 08/25/2024 15:38 At the request of: TARIQ VARNER Procedure: XR ankle RT min 3V HISTORY: c/o pain COMPARISON: There ar e no previous studies available for comparison. TECHNIQUE: 3 views o f the right ankle. FINDINGS: BONE DENSITY: Normal. JOINTS: No acute abnormality. FRACTURE: No acute fracture. DISLOCATION: None. SOFT TISSUES: No radiopaque foreign body. XR/XR ankle RT min 3V IMPRESSION: No acute osseous or joint abnormality. Electronically authenticated by: GABRIEL YOST Date: 08/25/2024 15:38 Dictated By: Raj Yost M.D. Signed By: 08/25/24 1540 DD/ 1538 TD/TT: Senior Site Manager: XR foot RT min 3V Reviewed date:08/26/2024 09:42:01 AM Interpretation: Performing Lab: Notes/Report: Source Facility: [place] [address] [place] [address] XRay Report Signed Patient: WILLIE BROWN MR#: [id number] : 1975 Acct:[id number] Age/Sex: 49 / F ADM Date: 08/25/24 Loc: ER Attending Dr: Ordering Physician: Tariq Varner M.D. Date of Service: 08/25/24 Procedure(s): XR foot RT min 3V Accession Number(s): [id number] cc: DEBORAH BUTLER ; Tariq Varner M.D. [address] [id number] Patient Name: WILLIE BROWN MRN: [id number] date: 1975 Sex: F Assigned Patient Location: ER Current Patient Location: Accession/Order Number: [id number] Exam Date: 08/25/2024 14:32 Report Date: 08/25/2024 15:37 At the request of: TARIQ VARNER Procedure: XR foot RT min 3V EXAM: XR foot RT min 3V HISTORY: Pain and swelling. COMPARISON: None FINDINGS: There is no evidence of an acute fracture, subluxation or bony destruction. XR/XR foot RT min 3V IMPRESSION: No acute osseous abnormality detected. Electronically authenticated by: MARTHA GRAMAJO Date: 08/25/2024 15:37 Dictated By: Martha Gramajo M.D. Signed By: 08/25/24 1540 DD/ 1537 TD/TT: Senior Site Manager: [place] [address] XRay Report Signed Patient: WILLIE BROWN MR#: [id number] : 1975 Acct:[id number] Age/Sex: 49 / F ADM Date: 08/25/24 Loc: ER Attending Dr: Ordering Physician: Tariq Varner M.D. Date of Service: 08/25/24 Procedure(s): XR donny t RT min 3V Accession Number(s): [id number] cc: DEBORAH BUTLER ; Tariq Varner M.D. [address] [address] Patient Name: WILLIE BROWN MRN: [id number] date: 1975 Sex: F Assigned Patient Location: ER Current Patient Location: Accession/Order Numb er: [id number] Exam Date: 08/25/2024 14:32 Report Date: 08/25/2024 15:37 At the request of: TARIQ VARNER Procedure: XR foot R T min 3V EXAM: XR foot RT min 3V HISTORY: Pain and swelling. COMPARISON: None FINDINGS: There is n o evidence of an acute fracture, subluxation or bony destruction. XR/XR foot RT min 3V IMPRESSION: No acute osseous abnormality detected. Electronically authenticated by: MARTHA GRAMAJO Date: 08/25/2024 15:37 Dictated By: Martha Gramajo M.D. Signed By: 08/25/24 1540 DD/ 1537 TD/TT: Senior Site Manager: Reason For Referral Reason evaluation and treat ment -- see attached order Diagnosis 1 Plantar fascial fibr omatosis (M72.2) Referral Organization [facility] (PODIATRY) Referring Provider First Name Lakisha Referring Provider Last Name Mily Referring Provider Speciality Podiatry Referred Provider TB, Physical Therap y Referred Provider Specialty Physical Med icine and Rehabilitation Referral Priority Routine Medications Medication SIG (Take, Route, Frequency, Duration) Notes Start Date End Date Status glipiZIDE ER 5 MG take 1 tablet by roman th every morning for 30 Active amLODIPine Besylate 5 MG TAKE 1 TABLET B Y MOUTH DAILY for 30 Active Levothyroxine Sodium 75 MCG TAKE 1 TABLE T BY MOUTH EVERY MORNING ON AN EMPTY STOMACH for 30 Active hydroCHLOROthiazide 25 MG take 1 tablet by mouth every morning for 30 Active Jardiance 10 MG 1 tablet Orally Once a day for 30 days Active Social History Tobacco Use: Social History Observation Description Date Details (start date - stop date) Never Smoker NA - NA Tobacco Use/Smoking Question Answer Notes Patient is a nonsmoker Alcohol Screen (Audit-C) Question Answer Notes Did you have a drink containing alcohol in the p ast year? No Points 0 Interpretation Negative AUDIT-C (Standard) Question Answer Notes Did you have a drink containing alcohol in the p ast year? No Points 0 Interpretation Negative Problems Problem Type SNOMED Code ICD Code Onset Dates Problem Status W/U Status Risk Notes Problem 23910900 Plantar fascial fibromatosis (M72.2) Active confirmed Problem Hypertension (72599703) Hypertension (I10) Active confirmed Problem Hypothyroidism (39708313) Hypothyroidism (E03.9) Active confirmed Problem Overweight (062804233) Over weight (E66.3) Active confirmed Problem Family history of breast cancer (505105340) Family history of breast cancer (Z80.3) Active confirmed Problem Generalized aches and pains (17140981) Body aches (R52) Active confirmed Problem Family history of malignant neoplasm of uterus (081264604) Family history of uterine cancer (Z80.49) Active confirmed Problem Diabetes mellitus (91871965) Diabetes mellitus (E11.9) Active confirmed Vital Signs Heart Rate 95 /min 10/21/2024 Temperature 96.8 degrees Fahrenheit 09/11/2024 Blood pressure diastolic 68 mm Hg 12/10/2024 Oximetry 99 % 10/21/2024 Height 60 in 12/10/2024 Blood pressure systolic 122 mm Hg 12/10/2024 Weight 207 lbs 12/10/2024 BMI 40.42 kg/m2 12/10/2024 Encounters Encounter Location Date Provider Diagnosis [facility] [address] [place] [address] 02/13/2025 Estuardo Turner [facility] [address] [place] [address] 03/21/2025 Deborah Butler [facility] [address] [place] [address] 05/02/2025 Deborah Butler Wellness examination Z00.00 [facility] [address] [place] [address] 05/02/2025 Deborah Butler [facility] [address] [place] [address] 07/14/2025 Deborah Butler [facility] (PODIATRY) [address] [place] [address] [place] [address] 08/27/2024 Lakisha Minor [facility] [address] [place] [facility] [place] [address] 09/13/2024 Deborah Butler [facility] [address] [place] [facility] [place] [address] 11/18/2024 Deborah Butler [facility] [address] [place] [facility] [place] [address] 12/02/2024 Deborah Butler [facility] [address] [place] [address] 12/10/2024 Deborah Butler Hypokalemia E87.6 [facility] [address] [place] [facility] [place] [address] 12/25/2024 Deborah Butler [facility] (PODIATRY) [address] [address] 08/27/2024 Lakisha Peraltasurinder Other sprain of right foot, initial encounter S93.691A and Posterior tibial tendinitis, right leg M76.821 [facility] [address] [place] [address] 10/21/2024 Deborah Flako Acute bronchitis J20.9 [facility] [address] [place] [address] 12/10/2024 Deborah Flako Hypokalemia E87.6 and Wellness examination Z00.00 [facility] (PODIAT[facility]) [address] [place] [address] [place] [address] 09/11/2024 Lakisha Minor Plantar fascial fibromatosis M72.2 Assessments Encounter Date Diagnosis (ICD Code) Assessment Notes Treatment Notes Treatment Clinical Notes Section Notes 08/27/2024 Other sprain of right foot, initial encounter (ICD-10 - S93.691A) Patient presents from referral by the emergency department. Patient relates to a 4-week history of worsening right heel pain then last week felt a pop and increased pain in her plantar and medial foot. She has been unable to walk on the foot. She is prescribed anti-inflammatorie s and have seemed to help somewhat but she is having difficulty sleeping. I did prescribe Ultram 50 mg 1 by mouth every 6 hours as needed for pain. She should continue NSAIDs. I did place her into a cam boot and she may weight-bear as pain allows. She also has some pain over the tarsal tunnel and posterior tibial tendon therefore I recommend an MRI for further evaluation she will follow-up after this is obtained no new x-rays are needed 08/27/2024 Posterior tibial tendinitis, right leg (ICD-10 - M76.821) 09/11/2024 Plantar fascial fibromatosis (ICD-10 - M72.2) Patient is doing much better with immobilization in a cam boot over the last 2 to 3 weeks. She may begin transitioning out of the cam boot but avoid going barefoot. Prescription for physical therapy was provided but I also would like her to perform daily exercises specifically emphasizing stretching and a handout was provided. We discussed shoe modification and she may consider OTC orthotics and a handout was provided. I recommended ice and massage as well. Patient may return back to work with restrictions on Monday. For the next 2 weeks she will have restrictions of no more than 4 hours/day and may wear the cam boot if needed. If she has any issues she will call the office and hopefully will be able to return back to work without restrictions on September 30.Follow-up in 6 weeks or as needed 10/21/2024 Acute bronchitis (ICD-10 - J20.9) fu if not improving COVID and flu neg 12/10/2024 Hypokalemia (ICD-10 - E87.6) 12/10/2024 Wellness examination (ICD-10 - Z00.00) ROS done exam done labs due in April mammogram and pap 12/10/2024 Hypokalemia (ICD-10 - E87.6) 05/02/2025 Wellness examination (ICD-10 - Z00.00) Plan Of Treatment Pending Test Test Name Order Date CMP (COMPLETE METABOLIC PANEL) HEMOGLOBIN A1C (GLYCO) 03/13/2024 HEMOGLOBIN A1C (GLYCO) 05/02/2025 IRON, TOTAL 05/02/2025 IRON, TOTAL 03/13/2024 LIPID PANEL (CHOL/TRIG/HDL/LDL) 03/13/20 24 LIPID PANEL (CHOL/TRIG/HDL/LDL) 05/02/20 25 CBC WITH DIFF 03/13/2024 VITAMIN D, 25 LEVEL (TOTAL) 03/13/2024 VITAMIN D, 25 LEVEL (TOTAL) 05/02/2025 MRI Ankle RT w/o contrast ([place] [facility]) Insulin Level 03/13/2024 Insulin Level 05/02/2025 CMP - Comprehensive Metabolic Panel 04/27 CMP - Comprehensive Metabolic Panel 11/27 THYROID PANEL (T4/TSH/FREE T3) 5 THYROID PANEL (T4/TSH/FREE T3) 4 MR ankle RT wo con 09/04/2024 CMP (COMP MET COLES) w/eGFR CKD-EPI 2024 CMP (COMP MET COLES) w/eGFR CKD-EPI 2024 CBC WITH DIFF 05/02/2025 Insurance Providers Payer Name Payer Address Payer Phone Subscriber Number Group Number Insured Name Patient Relationship to Insured Coverage Start Date Coverage End Date [employer] [address] [place] [phone] [id number] Willie Brown Self - patient is the insured 2024 Medical (General) History Medical History History ICD Code Over weight E66.3 Family history of uterine cancer Z80.49 Family history of breast cancer Z80.3 Hypothyroidism E03.9 Hypertension I10 Diabetes mellitus E11.9 Surgical History Surgery Date(Month/Year) Tube Removal and Ablation C Section X 2
--- OUTSIDE RECORDS SUMMARY | 2025-07-16 08:50 | XMS_ITS | Encounter Summary ---
Author Organization [facility] Address [address] [address] Care Team Providers Care Client Account Representative Name Role Phone Deborah Arriola MD Primary Care Provider [phone] Encounter Details Date Type Department Care Team (Late Contact Info) Description 05/14/2025 Orders Only [facility] [place] [id number] Kary Sam LPN [address] [place] [address] Social History Tobacco Use Types Packs/Day Years Used Date Smoking Tobacco: Never Assessed Comments No Sex and Gender Information Value Date Recorded Sex Assigned at Not on file Legal Sex Female 7:10 PM EDT Gender Identity Not on file Sexual Orientation Not on file documented as of this encounter Plan of Treatment Upcoming Encounters Date Type Department Care Team (Late Contact Info) Description 05/07/2026 10:00 AM EDT Office Visit [facility] [place] [phone] Eliud Leavitt DO [address] Abad Pham, [facility] documented as of this encounter Procedures Procedure Name Priority Date/Time Associated Diagnosis Comments PAP SMEAR Routine 05/01/2025 12:00 AM EDT documented in this encounter Results * Pap Smear (05/01/2025 12:00 AM EDT) Swab Cervical swab / Unknown us Eliud Tree DO LAB CYTOLOGY ORDERABLES Final Re sult EXTERNAL LAB documented in this encounter Visit Diagnoses Not on filedocumented in this encounter Care Teams Client Account Representative Relationship Specialty Start Date End Date Deborah Arriola MD [address] [place], [place] [id number] PCP - General 04/24/25 documented as of this encounter
--- OUTSIDE RECORDS SUMMARY | 2025-07-16 08:52 | XMS_ITS | CCD ---
Author Organization [facility] Care Team Providers Care Heel Sander Name Role Phone JEB ., DR GARVEY Consulting Unavailable JEB ., DR GARVEY Attending Unavailable CARRIE, DEBORAH Primary Care Unavailable JEB ., DR GARVEY Admitting Unavailable JEB ., DR GARVEY Consulting Unavailable JEB ., DR GARVEY Attending Unavailable CARRIE, DEBORAH Primary Care Unavailable JEB ., DR GARVEY Admitting Unavailable JEB ., DR GARVEY Consulting Unavailable JEB ., DR GARVEY Attending Unavailable CARRIE, DEBORAH Primary Care Unavailable JEB ., DR GARVEY Admitting Unavailable AGUBOSIM, TUNDE Consulting Unavailable LONG, CLAUDIA Consulting Unavailable CARRIE, DEBORAH Attending Unavailable CARRIE, DEBORAH Admitting Unavailable CARRIE, DEBORAH Primary Care Unavailable JEB ., DR GARVEY Admitting Unavailable JEB ., DR GARVEY Consulting Unavailable CARRIE, DEBORAH Primary Care Unavailable JEB ., DR GARVEY Attending Unavailable JEB ., DR GARVEY Admitting Unavailable JEB ., DR GARVEY Consulting Unavailable CARRIE, DEBORAH Primary Care Unavailable JEB ., DR GARVEY Attending Unavailable LAM, DR HENRY Manzano Consulting Unavailable CARRIE, DEBORAH Admitting Unavailable CARRIE, DEBORAH Primary Care Unavailable CARRIE, DEBORAH Consulting Unavailable CARRIE, DEBORAH Attending Unavailable Unavailable Primary Care Provider Unavailabl e MARE LEAVITT Attending Unavailable Carrie DEWITT, Deborah Primary Care Provider Medications Current Medications Medication Drug Class(es) Dates Sig (Normalized) Sig (Original) amLODIPine 5 mg oral tablet (3 sources) Dihydropyridine Calcium Channel Brooks Start: 09-13-20 24 take 1 tablet by mouth once daily amLODIPine (Norvasc) 5 MG tablet TAKE 1 TABLET BY MOUTH ONCE DAILY 30 09/13/2024 Active cholecalciferol 0.025 mg oral capsule (3 sources) Vitamin D take 1 capsule by mouth once daily cholecalciferol (Vitamin D-3) 25 MCG (1000 UT) capsule Take 1,000 Units by mouth Daily Active empagliflozin 10 mg oral tablet (3 sources) Sodium-Glucose Cotransporter 2 Inhibitor Start: 04-12-20 Jardiance 10 MG 04/12/2025 Active glipiZIDE er 5 mg 24 hr extended release oral tablet (3 sources) Sulfonylurea Start: 08-21-20 take 1 tablet by mouth every twenty-four hours in the morning glipiZIDE XL (Glucotrol XL) 5 MG 24 hr tablet Take 5 mg by mouth in the morning. 08/21/2024 Active hydroCHLOROthiazide 25 mg oral tablet (3 sources) Thiazide Diuretic hydroCHLOROthi azide (HYDRODiuril) 25 MG tablet 1 (one) time each day at the same time Active levothyroxine sodium 0.075 mg oral tablet (3 sources) l-Thyroxine Start: 08-09-20 take 1 tablet by mouth once daily in the morning levothyroxine (Synthroid, Levoxyl) 75 MCG tablet TAKE 1 TABLET BY MOUTH EVERY MORNING ON AN EMPTY STOMACH 30 08/09/2024 Active Problems Active Problems Problem Classification Problem Date Documented Da te Episodic/Chronic Diabetes mellitus with complications (6 sources) Type 2 diabetes mellitus with hyperglycemia; Translations: [Hyperglycemia due to type 2 diabetes mellitus] Onset: 05-04-2022 05-22-2023 Chronic Diabetes mellitus without complication (1 source) Type 2 diabetes mellitus without complications; Translations: [TYPE 2 DM WITHOUT COMPLICATIONS] Onset: 04-22-2022 Chronic Essential hypertension (6 sources) Essential (primary) hypertension; Translations: [Essential hypertension] Onset: 05-04-2022 05-22-2023 Chronic Menstrual disorders (8 sources) Excessive and frequent menstruation with regular cycle; Translations: [Dysmenorrhea, unspecified] Onset: 04-22-2022 Chronic Nutritional deficiencies (6 sources) Vitamin D deficiency, unspecified; Translations: [Vitamin D deficiency] Onset: 05-04-2022 05-22-2023 Chronic Other nervous system disorders (5 sources) Bilateral carpal tunnel syndrome; Translations: [Carpal tunnel [...] INDEX BMI 40.0-44.9 ADULT] Onset: 05-04-2022 Chronic Other screening for suspected conditions (not mental disorders or infectious disease) (6 sources) Encounter for screening for malignant neoplasm of cervix; Translations: [Patient encounter status] Onset: 02-16-2022 Episodic Thyroid disorders (6 sources) Hypothyroidism, unspecified; Translations: [Hypothyroidism] Onset: 05-04-2022 05-22-2023 Chronic Unclassified (1 source) CONTACT W/AND (SUSP) EXPOS COVID-19; Translations: [CONTACT W/AND (SUSP) EXPOS COVID-19] Onset: 05-03-2022 Past or Other Problems Problem Classification Problem Date Documented Date Episodic/Chronic Abdominal pain (5 sources) Right upper quadrant pain; Translations: [Right upper quadrant pain] Onset: 05-22-2023 05-22-2023 Episodic Contraceptive and procreative management (1 source) Encounter for sterilization; Translations: [ENCOUNTER FOR STERILIZATION] Onset: 05-04-2022 Episodic Immunizations and screening for infectious disease (1 source) Encounter for screening for human papillomavirus (HPV); Translations: [ENC SCREENING HUMAN PAPILLOMAVIRUS] Onset: 02-18-2022 Episodic Other aftercare (1 source) Other fci (current) drug therapy; Translations: [OTH RESIDENTIAL CURRENT DRUG THERAPY] Onset: 04-22-2022 Episodic Other aftercare (5 sources) Patient encounter status; Translations: [Encounter for follow-up examination after completed treatment for conditions other than malignant neoplasm] Onset: 05-22-2023 05-22-2023 Episodic Other female genital disorders (1 source) Other specified noninflammatory disorders of vagina; Translations: [OTH SPEC NONINFLAMMATORY D/O VAGINA] Onset: 05-04-2022 Episodic Residual codes; unclassified (5 sources) History of endometrial ablation; Translations: [Other specified postprocedural states] Onset: 06-26-2023 06-26-2023 Episodic Spondylosis; intervertebral disc disorders; other back problems (5 sources) Chronic neck pain; Translations: [Cervicalgia] Onset: 05-22-2023 05-22-2023 Episodic Results Test Name Value Interpretation Reference Range Facility IGP,APTIMA HPV,AGE GDLNon AGE GDLN ACOG TESTING Note . [facility] Comment on above: TESTS RESULT FLAG UN ITS REF RANGE LAB Clinician Provided Cytology Information Source.............Cervix;Endocervix No. of containers..01 ThinPrep Vial Age Algo ACOG Janeth... FLAG LEGEND: L-Low Normal,H-High Normal,LL-Alert Low,HH-Alert High <-Panic Low,>-Panic High,A-Abnormal,AA-Critical Abnormal Performed at: 01 = [address] [place] [address] Neelam Fuentes MD, HPV APTIMA Negative Negative [facility] Comment on above: This nucleic acid am plification test detects fourteen high- risk HPV types (16,18,31,33,35,39,45,51,52,56,58,59,66,68) without differentiation. Performed at: =[facility] [address] [id number] Electronic Console Display Operator: Neelam Fuentes MD, Phone: [phone] Performed at: [address] [place], [place], [place] [id number] Electronic Console Display Operator: Neelam Fuentes MD, Phone: [phone] IGP, APTIMA HPV, RFX 16/18,45 Note . [facility] Comment on above: TESTS RESULT FLAG UN ITS REF RANGE LAB DIAGNOSIS: 02 NEGATIVE FOR INTRAEPITHELIAL LESION OR MALIGNANCY. Specimen adequacy: 02 Satisfactory for evaluation. Endocervical and/or squamous metaplastic cells (endocervical component) are present. Performed by: Josef Laughlin Executive Director ([facility]) . 02 Note: Note 02 The [...] <-Panic Low,>-Panic High,A-Abnormal,AA-Critical Abnormal Performed at: [address] [facility] [address] [facility] [place] [address] Neelam Fuentes MD, BRUSH-SPATULA CERVIX ENDOCERVIX [facility] MM TOMOSYNTHESIS SCREENING B Ion 12-26-2024 The [facility] [address] [place] [address] Mammography Report Signed Patient: WILLIE BROWN MR#: [id number] : 1975 Acct:[id number] Age/Sex: 49 / F ADM Date: 12/25/24 Loc: MAMMO Attending Dr: Mare Leavitt D.O. Ordering Physician: Mare Leavitt D.O. Results: Date of Service: 12/25/24 Follow Up: Procedure(s): MM tomosynthesis screening BI Accession Number(s): [id number] cc: DEBORAH BUTLER ; Mare Leavitt D.O. Patient Name: WILLIE BROWN MR#: [id number] : 1975 Exam Date: 12/25/2024 Ordering Doctor: [...] Treatments None Family Cancers None LOCATION: The [facility] BREAST COMPOSITION: There are scattered [...] Signed By: 12/26/24 1550 DD/ 1549 TD/TT: Drum Attendant: [facility] Radiology, Radiologist, MD - 12/26/2024 [place] [address] Mammography Report Signed Patient: WILLIE BROWN MR#: [id number] : 1975 Acct:[id number] Age/Sex: 49 / F ADM Date: 12/25/24 Loc: MAMMO Attending Dr: Mare Leavitt D.O. Ordering Physician: Mare Leavitt D.O. Results: Date of Service: 12/25/24 Follow Up: Procedure(s): MM tomosynthesis screening BI Accession Number(s): [id number] cc: DEBORAH BUTLER ; Mare Leavitt D.O. Patient Name: WILLIE BROWN MR#: [id number] : 1975 Exam Date: 12/25/2024 Ordering Doctor: [...] Treatments None Family Cancers None LOCATION: [facility] BREAST COMPOSITION: There are scattered [...] Signed By: 12/26/24 1550 DD/ 1549 TD/TT: Drum Attendant: [facility] Radiology Study observation (narrative) [facility] MM TOMOSYNTHESIS SCREENING B IOrdered By: Radiologist Radiology on 12-26-2024 [facility] Work Phone: INSULINon 02-03-2023 Insulin 21.2 uIU/mL Normal 2.6-24.9 [facility] Comment on above: Performed By: #### I NSULIN ####[facility] [address] [place] [address]Dr. Elise Anderson CBC AUTO DIFFon 02-02-2023 BASO # 0.1 103/ul Normal 0.0-0.1 [facility] Comment on above: Performed By: #### C BC #### [facility] [address] [address] [address] Elise Anderson Basophils/100 WBC (Bld) 0.6 % Normal 0.2-2.0 [facility] Comment on above: Performed By: #### C BC #### [facility] [address] [place] [address] [address] Elise Anderson EO # 0.3 103/ul Normal 0.0-0.7 [facility] Comment on above: Performed By: #### C BC #### [facility] [address] [address] [address] Elise Anderson Eosinophils/100 WBC (Bld) 2.4 % Normal 0.9-7.0 [facility] Comment on above: Performed By: #### C BC #### [facility] [address] [address] [address] Elise Anderson Erythrocyte distribution width (RBC) [Ratio] 13.6 % Normal 11.0-15.0 [facility] Comment on above: Performed By: #### C BC #### [facility] [address] [address] [address] Elise Anderson Hematocrit (Bld) [Volume fraction] 39.6 % Normal 36.0-48.0 [facility] Comment on above: Performed By: #### C BC #### [facility] [address] [address] [address] Elise Anderson Hemoglobin (Bld) [Mass/Vol] 13.3 g/dL Normal 12.0-16.0 [facility] Comment on above: Performed By: #### C BC #### [facility] [address] [address] [address] Elise Anderson IG # 0.05 10e3/ul Critically high 0.00-0.[address] [facility] Comment on above: Performed By: #### C BC #### [facility] [address] [address] [address] Elise Anderson IG % 0.5 % Normal 0.0-0.5 [facility] Comment on above: Performed By: #### C BC #### [facility] [address] [place] [address] Dr. Elise Anderson LYMPH # 2.1 103/ul Normal 1.2-3.8 [facility] Comment on above: Performed By: #### C BC #### [facility] [address] [place] [address] Dr. Elise Anderson Lymphocytes/100 WBC (Bld) 20.4 % Critically low 20.5-60.0 [facility] Comment on above: Performed By: #### C BC #### [facility] [address] [place] [address] Dr. Elise Anderson MANUAL DIFF REQ NO Normal [facility] Comment on above: Performed By: #### C BC #### [facility] [address] [place] [address] Dr. Elise Anderson MCH (RBC) [Entitic mass] 28.6 pg Normal 26.7-34.0 [facility] Comment on above: Performed By: #### C BC #### [facility] [address] [place] [address] Dr. Elise Anderson MCHC (RBC) [Mass/Vol] 33.6 g/dL Normal 29.9-35.2 [facility] Comment on above: Performed By: #### C BC #### [facility] [address] [place] [address] Dr. Elise Anderson MCV (RBC) [Entitic vol] 85.2 fL Normal 81.0-99.0 [facility] Comment on above: Performed By: #### C BC #### [facility] [address] [place] [address] Dr. Elise Anderson MONO # 0.6 103/ul Normal 0.3-0.8 [facility] Comment on above: Performed By: #### C BC #### [facility] [address] [place] [address] Dr. Elise Anderson Monocytes/100 WBC (Bld) 5.5 % Normal 1.7-12.0 [facility] Comment on above: Performed By: #### C BC #### [facility] [address] [place] [address] Dr. Elise Anderson NEUT # 7.3 103/ul Critically high 1.4-6.5 [facility] Comment on above: Performed By: #### C BC #### [facility] [address] [place] [address] Dr. Elise Anderson Neutrophils/100 WBC (Bld) 70.6 % Normal 43.0-75.0 [facility] Comment on above: Performed By: #### C BC #### [facility] [address] [place] [address] Dr. Elise Anderson Platelet mean volume (Bld) [Entitic vol] 10.3 fL Normal 9.5-13.5 [facility] Comment on above: Performed By: #### C BC #### [facility] [address] [place] [address] Dr. Elise Anderson PLT 274 103/ul Normal 150-450 [facility] Comment on above: Performed By: #### C BC #### [facility] [address] [place] [address] Dr. Elise Anderson RBC 4.65 106/ul Normal 4.20-5.40 [facility] Comment on above: Performed By: #### C BC #### [facility] [address] [place] [address] Dr. Elise Anderson WBC 10.3 103/ul Normal 4.0-11.0 [facility] Comment on above: Performed By: #### C BC #### [facility] [address] [place] [address] Dr. Elise Anderson FREE THYROXINE INDEX T7on 03 -09-2023 FTI 3.23 Normal 1.30-4.50 [facility] Comment on above: Performed By: #### L IPID, T7, CMP, TSH ####[facility] [address] [place] [id number]. Elise Anderson T3U 32.0 % Normal 30.0-39.0 [facility] Comment on above: Performed By: #### L IPID, T7, CMP, TSH ####[facility] [address] [place] [id number]. Elise Anderson T4 [Mass/Vol] 10.10 ug/dL Normal 4.80-13.90 [facility] Comment on above: Performed By: #### L IPID, T7, CMP, TSH ####[facility] [address] [place] [address]Dr. Elise Anderson GLYCOHEMOGLOBIN A1Con 2022 ADA RECOMMENDATION SEE BELOW Normal [facility] Comment on above: Result Comment: ADA RECOMMENDED LIMIT 4.0 - 6.0 ADA THERAPEUTIC TARGET < 7.0 ACTION SUGGESTED > 7.0 Performed By: #### A 1C #### [facility] [address] [place] [address] [address] Elise Anderson Glucose [Mass/Vol] 197 mg/dL Normal [facility] Comment on above: Performed By: #### A 1C #### [facility] [address] [place] [address] [address] Elise Anderson HbA1c (Bld) [Mass fraction] 8.5 % Critically high 4.5-6.2 [facility] Comment on above: Performed By: #### A 1C #### [facility] [address] [place] [address] [address] Elise Anderson IRONon 02-02-2023 Iron [Mass/Vol] 70.0 ug/dL Normal 50.0-170.0 [facility] Comment on above: Performed By: #### I IAN VITAD #### [facility] [address] [place] [address] [address] Elise Anderson LIPID PROFILEon 02-02-2023 CHOL-HDL RATIO NORM SEE BELOW Normal [facility] Comment on above: Result Comment: 3.3 - 4.4 LOW RISK 4.4 - 7.1 AVERAGE RISK 7.1 - 11.0 MODERATE RISK >11.0 HIGH RISK Performed By: #### L IPID, T7, CMP, TSH ####[facility] [address] [place] [id number]. Erinwalker Anderson Cholesterol [Mass/Vol] 174 mg/dL Normal <=200 [facility] Comment on above: Performed By: #### L IPID, T7, CMP, TSH ####[facility] [address] [place] [id number]. Erinwalker Justin Cholesterol in HDL [Mass/Vol] 35 mg/dL Critically low 40-60 [facility] Comment on above: Performed By: #### L IPID, T7, CMP, TSH ####[facility] [address] [place] [id number]. Elise Anderson Cholesterol in LDL [Mass/Vol] 118.0 mg/dL Normal [facility] Comment on above: Performed By: #### L IPID, T7, CMP, TSH ####[facility] [address] [place] [id number]. Elise Anderson Cholesterol.total/Ch olesterol in HDL [Mass ratio] 5.0 {ratio} Normal [facility] Comment on above: Performed By: #### L IPID, T7, CMP, TSH ####[facility] [address] [place] [id number]. Erinwalker Anderson HDL NORMAL > or = 60 mg/dl - LO W CARDIOVASCULAR RISK <40 mg/dl - HIGH CARDIOVASCULAR RISK Normal [facility] Comment on above: Performed By: #### L IPID, T7, CMP, TSH ####[facility] [address] [place] [id number]. Erinwalker Anderson LDL CALC NORMAL SEE BELOW Normal [facility] Comment on above: Result Comment: <100 mg/dl OPTIMAL 100 - 129 mg/dl NEAR OR ABOVE OPTIMAL 130 - 159 mg/dl BORDERLINE HIGH 160 - 189 mg/dl HIGH >190 mg/dl VERY HIGH Performed By: #### L IPID, T7, CMP, TSH ####[facility] [address] [place] [address]Dr. Elise Anderson Triglyceride [Mass/Vol] 105 mg/dL Normal <=150 [facility] Comment on above: Performed By: #### L IPID, T7, CMP, TSH ####[facility] [address] [place] [address]Dr. Elise Anderson VLDL CALC 21.0 mg/dL Normal [facility] Comment on above: Performed By: #### L IPID, T7, CMP, TSH ####[facility] [address] [place] [address]Dr. Elise Anderson PROF 14(COMP METB)on 023 Albumin [Mass/Vol] 3.5 g/dL Normal 3.4-5.0 [facility] Comment on above: Performed By: #### L IPID, T7, CMP, TSH ####[facility] [address] [place] [address]Dr. Elise Anderson Albumin/Globulin [Mass ratio] 1.0 {ratio} Normal [facility] Comment on above: Performed By: #### L IPID, T7, CMP, TSH ####[facility] [address] [place] [address]Dr. Elise Anderson ALP [Catalytic activity/Vol] 77 U/L Normal 46-116 [facility] Comment on above: Performed By: #### L IPID, T7, CMP, TSH ####[facility] [address] [place] [address]Dr. Elise Anderson ALT [Catalytic activity/Vol] 20 U/L Normal 14-59 [facility] Comment on above: Performed By: #### L IPID, T7, CMP, TSH ####[facility] [address] [place] [address]Dr. Elise Anderson Anion gap [Moles/Vol] 12.9 mmol/L Normal [facility] Comment on above: Performed By: #### L IPID, T7, CMP, TSH ####[facility] [address] [place] [address]Dr. Elise Anderson AST [Catalytic activity/Vol] 12 U/L Critically low 15-37 [facility] Comment on above: Performed By: #### L IPID, T7, CMP, TSH ####[facility] [address] [place] [address]Dr. Elise Anderson Bilirubin [Mass/Vol] 0.4 mg/dL Normal 0.2-1.0 [facility] Comment on above: Performed By: #### L IPID, T7, CMP, TSH ####[facility] [address] [place] [address]Dr. Elise Anderson Calcium [Mass/Vol] 8.9 mg/dL Normal 8.5-10.1 [facility] Comment on above: Performed By: #### L IPID, T7, CMP, TSH ####[facility] [address] [place] [address]Dr. Elise Anderson Chloride [Moles/Vol] 105 mmol/L Normal 98-107 [facility] Comment on above: Performed By: #### L IPID, T7, CMP, TSH ####[facility] [address] [place], [place] [address]Dr. Elise Anderson CO2 [Moles/Vol] 27.7 mmol/L Normal 21.0-32.0 [facility] Comment on above: Performed By: #### L IPID, T7, CMP, TSH ####[facility] [address] [place] [address]Dr. Elise Anderson Creatinine [Mass/Vol] 0.74 mg/dL Normal 0.55-1.02 [facility] Comment on above: Performed By: #### L IPID, T7, CMP, TSH ####[facility] [address] [place] [address]Dr. Elise Anderson EGFR-AF PERUVIAN >60 Normal >=60 [facility] Comment on above: Performed By: #### L IPID, T7, CMP, TSH ####[facility] [address] [place] [address]Dr. Elise Anderson EGFR-NON AF PERUVIAN >60 Normal >=60 [facility] Comment on above: Performed By: #### L IPID, T7, CMP, TSH ####[facility] [address] [place] [address]Dr. Elise Anderson Globulin (S) [Mass/Vol] 3.5 g/dL Normal [facility] Comment on above: Performed By: #### L IPID, T7, CMP, TSH ####[facility] [address] [place] [address]Dr. Elise Anderson Glucose [Mass/Vol] 196 mg/dL Critically high 74-[address] [facility] Comment on above: Performed By: #### L IPID, T7, CMP, TSH ####[facility] [address] [place] [address]Dr. Elise Anderson Potassium [Moles/Vol] 3.6 mmol/L Normal 3.5-5.1 [facility] Comment on above: Performed By: #### L IPID, T7, CMP, TSH ####[facility] [address] [place], [place] [address]Dr. Elise Anderson Protein [Mass/Vol] 7.0 g/dL Normal 6.4-8.2 [facility] Comment on above: Performed By: #### L IPID, T7, CMP, TSH ####[facility] [address] [place] [address]Dr. Elise Anderson Sodium [Moles/Vol] 142 mmol/L Normal 136-145 [facility] Comment on above: Performed By: #### L IPID, T7, CMP, TSH ####[facility] [address] [place] [address]Dr. Elise Anderson Urea nitrogen [Mass/Vol] 12.0 mg/dL Normal 7.0-18.0 [facility] Comment on above: Performed By: #### L IPID, T7, CMP, TSH ####[facility] [address] [place] [address]Dr. Elise Anderson Urea nitrogen/Creatinine [Mass ratio] 16.2 mg/mg Normal [facility] Comment on above: Performed By: #### L IPID, T7, CMP, TSH ####[facility] [address] [place] [id number] Anderson TSHon 02-02-2023 TSH 1.113 uIU/mL Normal 0.358-3.740 [facility] Comment on above: Performed By: #### L IPID, T7, CMP, TSH ####[facility] [address] [place] [id number] Anderson VITAMIN D 25 OHon 02-02-2023 VIT D 25-OH 49.1 ng/mL Normal [facility] Comment on above: Performed By: #### I IAN VITAD #### [facility] [address] [place] [address] Dr. Elise Anderson VIT D RANGES SEE BELOW Normal [facility] Comment on above: Result Comment: <20 ng/mL Vit D deficient 20 - <30 ng/mL Vit D insufficient 30 - 100 ng/mL Vit D sufficient >100 ng/mL Potential Toxicity Performed By: #### Kellen SOSA VITAD #### [facility] [address] [place] [address] Dr. Elise Anderson CBC AUTO DIFFon 04-29-2022 BASO # 0.1 103/ul Normal 0.0-0.1 [facility] Comment on above: Performed By: #### C BC ####[facility] [address] [place] [address]DrClotilde Anderson Basophils/100 WBC (Bld) 0.5 % Normal 0.2-2.0 [facility] Comment on above: Performed By: #### C BC ####[facility] [address] [place] [address]DrClotilde Anderson EO # 0.2 103/ul Normal 0.0-0.7 [facility] Comment on above: Performed By: #### C BC ####[facility] [address] [place] [address]DrClotilde Anderson Eosinophils/100 WBC (Bld) 2.0 % Normal 0.9-7.0 [facility] Comment on above: Performed By: #### C BC ####[facility] [address] [place] [address]Dr. Elise Anderson Erythrocyte distribution width (RBC) [Ratio] 12.9 % Normal 11.0-15.0 [facility] Comment on above: Performed By: #### C BC ####[facility] [address] [place], [place] [address]Dr. Elise Anderson Hematocrit (Bld) [Volume fraction] 41.3 % Normal 36.0-48.0 [facility] Comment on above: Performed By: #### C BC ####[facility] Tajhmkccgs[address] [place], [place] [address]Dr. Elise Anderson Hemoglobin (Bld) [Mass/Vol] 13.7 g/dL Normal 12.0-16.0 [facility] Comment on above: Performed By: #### C BC ####[facility] E[address] [place], [place] [address]Dr. Elise Anderson IG # 0.03 10e3/ul Normal 0.00-0.03 [facility] Comment on above: Performed By: #### C BC ####[facility] Bodlsafocs[address] [place], [place] [address]Dr. Elise Anderson IG % 0.3 % Normal 0.0-0.5 [facility] Comment on above: Performed By: #### C BC ####[facility] Koojzv[address]rd[address] [place], [place] [address]Dr. Elise Anderson LYMPH # 2.0 103/ul Normal 1.2-3.8 [facility] Comment on above: Performed By: #### C BC ####[facility] Xxnojksxvc[address] [place], [place] [address]Dr. Elise Anderson Lymphocytes/100 WBC (Bld) 20.1 % Critically low 20.5-60.0 [facility] Comment on above: Performed By: #### C BC ####[facility] V[address]ht[address] [place], [place] [address]Dr. Elise Anderson MANUAL DIFF REQ NO Normal [facility] Comment on above: Performed By: #### C BC ####[facility] [address] [place] [id number]. Elise Justin MCH (RBC) [Entitic mass] 28.1 pg Normal 26.7-34.0 [facility] Comment on above: Performed By: #### C BC ####[facility] [address] [place] [id number]. Elise Justin MCHC (RBC) [Mass/Vol] 33.2 g/dL Normal 29.9-35.2 [facility] Comment on above: Performed By: #### C BC ####[facility] [address] [place] [address]Dr. Erinwalker Anderson MCV (RBC) [Entitic vol] 84.8 fL Normal 81.0-99.0 [facility] Comment on above: Performed By: #### C BC ####[facility] C[address]po[address]ef[address] [place], [place] [address]Dr. Elise Anderson MONO # 0.5 103/ul Normal 0.3-0.8 [facility] Comment on above: Performed By: #### C BC ####[facility] Cothtauav[address] [place], [place] [address]Dr. Erinwalker Anderson Monocytes/100 WBC (Bld) 4.8 % Normal 1.7-12.0 [facility] Comment on above: Performed By: #### C BC ####[facility] [address] [place], [place] [address]Dr. Elise Anderson NEUT # 7.1 103/ul Critically high 1.4-6.5 [facility] Comment on above: Performed By: #### C BC ####[facility] [address]ub[address]irc[address] [place], [place] [address]Dr. Elise Anderson Neutrophils/100 WBC (Bld) 72.3 % Normal 43.0-75.0 [facility] Comment on above: Performed By: #### C BC ####[facility] [address] [place] [id number]. Elise Anderson Platelet mean volume (Bld) [Entitic vol] 10.3 fL Normal 9.5-13.5 [facility] Comment on above: Performed By: #### C BC ####[facility] [address] [place], [place] [address]Ml. Elise Anderson PLT 304 103/ul Normal 150-450 [facility] Comment on above: Performed By: #### C BC ####[facility] [address] [place], [place] [address]Fp. Elise Anderson RBC 4.87 106/ul Normal 4.20-5.40 [facility] Comment on above: Performed By: #### C BC ####[facility] [address]pq[address] [place], [place] [address]Hq. Elise Anderson WBC 9.8 103/ul Normal 4.0-11.0 [facility] Comment on above: Performed By: #### C BC ####[facility] [address] [id number]. Elise Anderson POINT OF CARE GLUCOSEon 06-0 Glucose [Mass/Vol] 172 mg/dL Critically high 74-106 [facility] Comment on above: Performed By: #### P OCGLUC #### [facility] [address] [address] [address] Elise Anderson PREG QUANT HCGon 04-29-2022 HCG QUANT <1 [facility] Comment on above: Performed By: #### P REGQNT #### [facility] [address] [address] [address] Elise Anderson HCG RANGE SEE BELOW Normal [facility] Comment on above: Result Comment: 5-50 0-1 WEEK 40-300 1-2 WEEKS 100-1,000 2-3 WEEKS 500-6,000 3-4 WEEKS 5,000-200,000 1-2 MONTHS 10,000-100,000 2-3 MONTHS 3,000-50,000 2ND TRIMESTER 1,000-50,000 3RD TRIMESTER Performed By: #### P REGQNT #### [facility] [address] [address] [address] Elise Anderson [facility]29 SARS-CoV-2 (COVID-19) RNA CHICA+probe Ql (Unsp spec) Not detected Normal NOT DETECTED [facility] Comment on above: Result Comment: This test is not yet approved or cleared by the [place] FDA. When there are no FDA-approved or cleared tests available, and other criteria are met, FDA can make tests available under an emergency access mechanism called an Emergency Use Authorization (EUA). The EUA for this test is supported by the [place] of Health and Human Service's (HHS's) declaration [...] SARS-CoV-2. Performed By: #### C VDTBH #### [facility] [address] [place] [address] Dr. Elise Anderson PROF CHEM 8 (BAS METB)on Anion gap [Moles/Vol] 11.5 mmol/L Normal [facility] Comment on above: Performed By: #### B MP #### [facility] [address] [place] [address] Dr. Elise Anderson Calcium [Mass/Vol] 9.1 mg/dL Normal 8.5-10.1 [facility] Comment on above: Performed By: #### B MP #### [facility] [address] [place] [address] Dr. Elise Anderson Chloride [Moles/Vol] 99 mmol/L Normal 98-107 [facility] Comment on above: Performed By: #### B MP #### [facility] [address] [place] [address] Dr. Elise Anderson CO2 [Moles/Vol] 29.1 mmol/L Normal 21.0-32.0 [facility] Comment on above: Performed By: #### B MP #### [facility] [address] [address] [address] Elise Anderson Creatinine [Mass/Vol] 0.93 mg/dL Normal 0.55-1.02 [facility] Comment on above: Performed By: #### B MP #### [facility] [address] [address] [address] Elise Anderson EGFR-AF PERUVIAN >60 Normal >=60 [facility] Comment on above: Performed By: #### B MP #### [facility] [address] [address] [address] Elise Anderson EGFR-NON AF PERUVIAN >60 Normal >=60 [facility] Comment on above: Performed By: #### B MP #### [facility] [address] [place] [address] Dr. Elise Anderson Glucose [Mass/Vol] 385 mg/dL Critically high 74-[address] [facility] Comment on above: Performed By: #### B MP #### [facility] [address] [address] [address] Elise Anderson Potassium [Moles/Vol] 3.6 mmol/L Normal 3.5-5.1 [facility] Comment on above: Performed By: #### B MP #### [facility] [address] [place] [address] Dr. Elise Anderson Sodium [Moles/Vol] 136 mmol/L Normal 136-145 [facility] Comment on above: Performed By: #### B MP #### [facility] [address] [address] [address] Elise Anderson Urea nitrogen [Mass/Vol] 15.0 mg/dL Normal 7.0-18.0 [facility] Comment on above: Performed By: #### B MP #### [facility] [address] [place] [address] Dr. Elise Anderson Urea nitrogen/Creatinine [Mass ratio] 16.1 mg/mg Normal [facility] Comment on above: Performed By: #### B MP #### [facility] [address] [place] [address] Dr. Elise Anderson PAP ACOG PANEL 2: 30 to 65on 02-23-2022 . . Normal [facility] Comment on above: Result Comment: Perf ormed at: WB Performed By: #### 4 [id number] ####[facility] [address] [place] [id number] Anderson Age Gdln ACOG Testing 30-65 Normal [facility] Comment on above: Performed By: #### [id number] ####[facility] [address] [place] [address]Dr. Elise Anderson DIAGNOSIS: Comment Normal [facility] Comment on above: Result Comment: NEGA TIVE FOR INTRAEPITHELIAL LESION OR MALIGNANCY. Performed at: WB Performed By: #### 4 [id number] ####[facility] [address] [place], [place] [address]DrClotilde Anderson HPV Aptima Negative Normal Negative [facility] Comment on above: Result Comment: This nucleic acid amplification test detects fourteen high-risk HPV types (16,18,31,33,35,39,45,51,52,56,58,59,66,68) without differentiation. Performed at: =G Performed By: #### 4 [id number] ####[facility] [address] [place], [place] [address]DrClotilde Anderson Methodology: Comment Normal [facility] Comment on above: Result Comment: This liquid based ThinPrep(R) pap test was screened with the use of an image guided system. Performed at: WB Performed By: #### 4 [id number] ####[facility] [address] [place], [place] [address]DrClotilde Anderson Note: Comment Normal [facility] Comment on above: Result Comment: The Pap smear is a screening test designed to aid in the detection of premalignant and malignant conditions of the uterine cervix. It is not a diagnostic procedure and should not be used as the sole means of detecting cervical cancer. Both false-positive and false-negative reports do occur. . Performed at: WB Performed By: #### 4 [id number] ####[facility] [address] [place], [place] [address]DrClotilde Anderson Performed by: Comment Normal [facility] Comment on above: Result Comment: Anahi Romo, Carbon Coater Machine Operator (ASCP) Performed at: WB Performed By: #### 4 [id number] ####[facility] [address] [place] [id number]. Elise Anderson Specimen adequacy: Comment Normal [facility] Comment on above: Result Comment: Sati sfactory for evaluation. Endocervical and/or squamous metaplastic cells (endocervical component) are present. Areas of partially obscuring blood are present. Performed at: WB Performed By: #### 4 [id number] ####[facility] [address] [place], [place] [address]Xk. Elise Anderson US PELVIS AND TRANSVAGon US [...] by: HENRY PETERS Date: 2022-02-23 15:28 Normal [facility] Vital Signs Date Time Vital Sign Value Performing Clinician [place]re [place] 05-01-2025 08:50-0400 Body weight 93.44 kg [employer] Work Phone: [facility] [employer] 05-01-2025 08:50-0400 Diastolic blood pressure 90 mm[Hg] [employer] Work Phone: [facility] 05-01-2025 08:50-0400 Systolic blood pressure 132 mm[Hg] Mare Jeb DO Work Phone: [facility] Encounters Encounter Date Encounter Type Care Provider Facility Start: 05-01-2025 End: 05-01-2025 Bamboo flowsheet Mare Jeb DO Work Phone: [facility] Start: 05-01-2025 End: 05-06-2025 Bamboo flowsheet Mare Jeb DO Work Phone: [facility] Start: 05-01-2025 End: 05-06-2025 Clinisync Result Encounter Mare Jeb DO Work Phone: [facility] Unsolicited Start: 05-01-2025 End: 05-01-2025 Patient encounter procedure Mare Jeb DO Work Phone: [facility] Start: 05-01-2025 End: 05-01-2025 Periodic preventive med est patient 40-64yrs Mare Jeb DO Work Phone: [facility] Comment on above: Well woman exam with routine gynecological exam; Encounter for screening mammogram for malignant neoplasm of breast; Menorrhagia with irregular cycle Start: 05-01-2025 End: 05-01-2025 ambulatory MARE JEB Not Available Start: 12-26-2024 End: 12-26-2024 Clinisync Result Encounter Mare Jeb DO Work Phone: [facility] Unsolicited Start: 12-26-2024 End: 12-26-2024 Clinisync Result Encounter Mare Jeb DO Work Phone: [facility] Unsolicited Start: 02-07-2023 Encounter for genera l adult medical examination without abnormal findings DEBORAH BUTLER [facility] Start: 02-02-2023 End: 02-03-2023 ambulatory DEBORAH BUTLER Facility:[facility] Start: 02-02-2023 End: 02-03-2023 Encounter for general adult medical examination without abnormal findings DEBORAH BUTLER Facility:[facility] Start: 12-21-2022 ambulatory DEBORAH BUTLER Facility: [facility] Start: 05-03-2022 Encounter for preprocedural laboratory examination DR MARE LEAVITT . [facility] Start: 04-29-2022 End: 04-29-[address] MARE LEAVITT . Facility:[facility] Start: 04-26-2022 End: 04-27-[address] MARE LEAVITT . Facility:[facility] Start: 04-26-2022 End: 04-27-2022 Encounter for preprocedural laboratory examination DR MARE LEAVITT . Facility:[facility] Start: 04-22-2022 Encounter for preprocedural cardiovascular examination DR MARE LEAVITT . [facility] Start: 04-22-2022 Encounter for preprocedural laboratory examination DR MARE LEAVITT . [facility] Start: 04-20-2022 End: 04-21-[address] MARE LEAVITT . Facility:[facility] Start: 04-20-2022 End: 04-21-2022 Encounter for preprocedural cardiovascular examination DR MARE LEAVITT . Facility:[facility] Start: 02-23-2022 End: 02-24-[address] MARE LEAVITT . Facility:[facility] Start: 02-16-2022 End: 02-16-[address] MARE LEAVITT . Facility: Procedures Date Procedure Procedure Detail Performing Clinician Start: 05-01-2025 IGP,APTIMA HPV,AGE GDLN Mare Leavitt DO Work Phone: Start: 12-26-2024 MM TOMOSYNTHESIS SCREENING BI Mare Leavitt DO Work Phone: Start: 05-22-2023 H/O: surgery H/O bilateral salpingectomy Mare Leavitt DO Work Phone: Plan of Treatment Date Care Activity Detail Author Start: 05-07-2026 End: 05-07-2026 Patient encounter procedure 05/07/2026 10:00 AM EDT Office Visit [facility] [address] [place] [id number] Mare Leavitt DO [address] [place] [address] [facility] Start: 05-01-2025 End: 05-01-2025 Patient encounter procedure [facility] Comment on above: Arrived THIN PREP TIS PAP AN D HR HPV DNA THIN PREP TIS PAP AND HR HPV DNA Pathology and Cytology Routine Well woman exam with routine gynecological exam Ordered: 05/01/2025 [facility] Work Phone: Comment on above: Ordered: 05/01/2025 Payers Date Payer Category Payer Managed Care HMO (unspecified) [id number] 2024 Private Health Insurance [id number] 1977 Unknown [id number] 2.16.84 [id number] 1977 Unknown [id number] 2.16.84 [id number] 1977 Unknown [id number] 2.16.84 [id number] 1977 Unknown [id number] 2.16.84 [id number] 1977 Unknown [id number] 2.16.84 [id number] 1977 Unknown [id number] 2.16.84 [id number] 1977 Unknown [id number] 2.16.84 [id number] 1977 Unknown [id number] 1959 Self-pay [id number] 1959 Unknown [id number] Social History Date Type Detail Facility Tobacco smoking stat [facility] Tobacco smoking consumption unknown [facility] Start: 1975 Sex assigned at Not on file [facility] Gender identity Not on file [facility] are History of Present illness Narrative 05-01-2025 Sandi Maher, [employer] LAB[employer]ER - 05/01/2025 8:30 AM EDT Note Date & Type Note Facility 05-01-2025 History of Presen t illness Narrative Reason for Appointment: Patient ID: Willie Brown is a 50 y.o. female who presents for Well Women Visit Patient presents today for Annual Exam. MEDICATIONS Current Outpatient Medications Medication Instructions amLODIPine (Norvasc) 5 MG tablet TAKE 1 TABLET BY MOUTH ONCE DAILY 30 cholecalciferol (VITAMIN D-3) 1,000 Units, Daily glipiZIDE XL (GLUCOTROL XL) 5 mg, Every morning hydroCHLOROthiazide (HYDRODiuril) 25 MG tablet Every 24 hours Jardiance 10 MG levothyroxine (Synthroid, Levoxyl) 75 MCG tablet TAKE 1 TABLET BY MOUTH EVERY MORNING ON AN EMPTY STOMACH 30 ALLERGIES No Known Allergies PROBLEMS Active Ambulatory Problems Diagnosis Date Noted Bilateral carpal tunnel syndrome 05/22/2023 Chronic neck pain 05/22/2023 Encounter for follow-up examination after completed treatment for conditions other than malignant neoplasm 05/22/2023 Essential hypertension (CMS/HCC) 05/22/2023 H/O bilateral salpingectomy 05/22/2023 History of endometrial ablation 05/22/2023 Hyperglycemia due to type 2 diabetes mellitus (CMS/HCC) 05/22/2023 Hypothyroidism (CMS/HCC) 05/22/2023 Right upper quadrant pain 05/22/2023 Vitamin D deficiency 05/22/2023 Resolved Ambulatory Problems Diagnosis Date Noted No Resolved Ambulatory Problems Past Medical History: Diagnosis Date Carpal tunnel syndrome, bilateral Hypertension (CMS/HCC) Hypothyroidism (acquired) (CMS/HCC) HISTORY PAST MEDICAL HISTORY SOCIAL HISTORY Past Medical History: Diagnosis Date Carpal tunnel syndrome, bilateral History of endometrial ablation Hypertension (CMS/HCC) Hypothyroidism (acquired) (CMS/HCC) Vitamin D deficiency Social History Tobacco Use Smoking status: Not on file Smokeless tobacco: Not on file Substance Use Topics Alcohol use: Not on file Drug use: Not on file FAMILY HISTORY No family history on file. SURGICAL HISTORY Past Surgical History: Procedure Laterality Date ENDOMETRIAL ABLATION SALPINGECTOMY Bilateral REVIEW OF SYSTEMS Review of Systems: Review of Systems Constitutional: Negative. HENT: Negative. Eyes: Negative. Respiratory: Negative. Cardiovascular: Negative. Gastrointestinal: Negative. Genitourinary: Positive for menstrual problem, pelvic pain and vaginal bleeding. Musculoskeletal: Negative. Skin: Negative. Neurological: Negative. All other systems reviewed and are negative. Hematological: Negative. Endocrine: Negative. Allergic/Immunologic: Negative. OBJECTIVE Objective: Physical Exam Constitutional: Appearance: Normal appearance. She is well-developed. Genitourinary: Vulva normal. Breasts: Breasts are soft. Right: Normal. Left: Normal. Cardiovascular: Rate and Rhythm: Normal rate and regular rhythm. Pulmonary: Effort: Pulmonary effort is normal. Breath sounds: Normal breath sounds. Abdominal: General: Bowel sounds are normal. There is no distension. Palpations: Abdomen is soft. Tenderness: There is no abdominal tenderness. There is no guarding or rebound. Musculoskeletal: General: No swelling. Normal range of motion. Right lower leg: No edema. Left lower leg: No edema. Neurological: Mental Status: She is alert and oriented to person, place, and time. Skin: General: Skin is warm and dry. Psychiatric: Mood and Affect: Mood normal. Behavior: Behavior normal. Vitals and nursing note reviewed. Exam conducted with a b2b managed service sales exec present. Vitals: There is no height or weight on file to calculate BMI. BP: 132/90 Patient's last menstrual period was 04/24/2025 (approximate). ASSESSMENT & PLAN ICD-10-CM 1. Well woman exam with routine gynecological exam Z01.419 THIN PREP TIS PAP AND HR HPV DNA 2. Encounter for screening mammogram for malignant neoplasm of breast Z12.31 3. Menorrhagia with irregular cycle N92.1 Annual: Patient presents today for an annual exam. Patient states she is doing well and has complaints heavy irregular cycles that were not helped by ablation. Discussed management with surgical procedure and patient will reach out to office. Pap was obtained without difficulty and patient given mammogram order to have scheduled/obtained. Follow Up: Patient is to return in one year for annual unless needed otherwise. Documented by Sandi Maher LPN on behalf of: Mare Leavitt DO documented in this encounter [facility] Clinical Note 04-29-2022 Note Date & Type Note Facility 04-29-2022 Note OPERATIVE NOTE ADDNINA DUM OPERATION DATE: 05/06/2022 PROCEDURE NAME: BILATERAL LAPAROSCOPIC [...] and needle counts were correct x2. [facility] Clinical Note 04-29-2022 Note Date & Type Note Facility 04-29-2022 Note OP Note OPERATION DATE: 04/29/2022 PROCEDURE: Bilateral laparoscopic salpingectomy with Nena endometrial ablation. PREOPERATIVE DIAGNOSIS: Menorrhagia, desires permanent sterilization. POSTOPERATIVE DIAGNOSIS: Menorrhagia, desires permanent sterilization. ANESTHESIA: General. SURGEON: Mare Leavitt D.O. BENCH MACHINE OPERATOR: BRIJESH Zavala URINE OUTPUT: Yellow and clear. [...] taken to recovery in stable condition. [facility] Clinical Note 04-29-2022 Note Date & Type Note Facility 04-29-2022 Note [facility] [place], [place] NAME: WILLIE BROWN DATE OF : MEDICAL REC#: [id number] MAINTENANCE SUPERVISOR MECHANICAL: [id number] MONICO GAITAN DATE: 04/29/2022 07:04:00 LINTER SAW SHARPENER DATE: 05/19/2022 11:37 DICTATING PHYSICIAN: MARE LEAVITT DICTATION DATE: 05/19/2022 11:37 OPERATIVE NOTE OPERATION DATE: 04/29/2022 ANESTHETIC: PREOPERATIVE DIAGNOSIS: menorrhagia, desires permanent sterilization POSTOPERATIVE DIAGNOSIS : same as above ANESTHESIA: general Surgeon: jeb Young Rate Supervisor: BRIJESH Blood loss:10ml Specimen: bilateral tubes Finding:Normal [...] by: DR MARE LEAVITT . 05/19/2022 11:48:00 [facility] Evaluation note Note Date & Type Note Facility Evaluation note Diagnosis Well woman exam with routine gynecological exam Routine gynecological examination Encounter for screening mammogram for malignant neoplasm of breast Menorrhagia with irregular cycle documented in this encounter [facility] Summary Purpose Family History No Family History Records FoundNo Family History Records Found Advance Directives No Advanced Directives Records FoundNo Advanced Directives Records Found Additional Source Comments INFORMATION SOURCE (unrecogn ized section and content) DATE CREATED AUTHOR 02/08/2023 [facility] DATE CREATED AUTHOR AUTHOR'S ORGANIZ ATION 05/02/2025 [facility] Care Teams (unrecognized sec tion and content) Heel Sander Relationship Specialty Start Date End Date Deborah Butler MD [address] [place] [address] PCP - General 04/24/25 Heel Sander Relationship Specialty Start Date End Date Deborah Butler MD [address] [place] [address] PCP - General 04/24/25 Heel Sander Relationship Specialty Start Date End Date Deborah Butler MD [address] [place] [id number] PCP - General 04/24/25 Reason for Visit (unrecogniz ed section and content) Reason Comments Well Women Visit FOR RECORDS PERTAINING TO PATIENTS WHO ARE [...] BE BASED ON THE PRIMARY CLINICAL RECORDS. [facility]. provides no warranty or guarantee of the accuracy or completeness of information in this document.
[2025-07-16 10:12] LABS: Hematocrit 45.0 % (36.0-48.0); Hemoglobin 15.1 g/dL (12.0-16.0); Immature Granulocytes Abs Auto 0.03 10^3/uL (0.00-0.03); Immature Granulocytes Pct Auto 0.3 % (0.0-0.5); Lymphocytes Absolute Auto 2.2 10^3/uL (1.2-3.8); Mean Corpuscular HGB Conc 33.6 g/dL (29.9-35.2); Mean Corpuscular Hemoglobin 29.0 pg (26.7-34.0); Mean Corpuscular Volume 86.4 fL (81.0-99.0); Platelet Count 280 10^3/uL (150-450); Red Blood Count 5.21 10^6/uL (4.20-5.40); White Blood Count 9.4 10^3/uL (4.0-11.0)
[2025-07-16 10:36] LABS: Iron 72.0 ug/dL (50.0-170.0)
[2025-07-16 10:47] LABS: Alanine Aminotransferase 22 U/L (14-59); Albumin Globulin Ratio 1.0; Albumin Level 3.6 g/dL (3.4-5.0); Alkaline Phosphatase 78 U/L (46-116); Anion Gap 10.4; Aspartate Amino Transferase 12 U/L (15-37); Blood Urea Nitrogen 15.0 mg/dL (7.0-18.0); Calcium 8.9 mg/dL (8.5-10.1); Carbon Dioxide 28.6 mmol/L (21.0-32.0); Chloride 103 mmol/L (98-107); Cholesterol 165 mg/dL (<=200); Estimated GFR (African America >60 (>=60 mL/min/1.73m^2); Estimated GFR (Non-African Ame >60 (>=60 mL/min/1.73m^2); Free T3 2.08 pg/mL (2.18-3.98); Globulin 3.6 g/dL; Glucose 145 mg/dL (74-106); HDL Cholesterol 39 mg/dL (40-60); Potassium 3.0 mmol/L (3.5-5.1); Sodium 139 mmol/L (136-145); Thyroid Stimulating Hormone 0.982 uIU/mL (0.358-3.740); Total Protein 7.2 g/dL (6.4-8.2); Triglycerides 104 mg/dL (<=150); VLDL CHOLESTEROL 20.8 mg/dL
== END 2025-07-16 08:48 | disposition home or self-care (01) ==
LOC: LAB 08:47
PROVIDERS: PCP Nurse Practitioner Family; Visit Provider Nurse Practitioner Family
DX: Z00.00 Encounter for general adult medical examination without abnormal findings (principal)
CPT/HCPCS: 36415; 80053; 80061; 82306; 83036; 83525; 83540; 84436; 84443; 84481; 85025